=== PATIENT | male | born 1945 | race Caucasian/White ===

== ENCOUNTER 2021-06-19 14:37 | Outpatient (REF) | payer MEDICARE, SELFPAY ==
--- NOTE | ~2021-06-19 | XR_ITS ---
EXAMINATION: XR KNEE, RIGHT CLINICAL INFORMATION: Pain COMPARISON: Previous x-ray September 2018 TECHNIQUE: 4 views of the right knee. FINDINGS: There is an old healed fracture of the distal femoral shaft. No acute fracture or dislocation is seen. There is a 3 component right knee replacement that is new in the interval from September 2018 exam. In satisfactory position. There are small radiopaque soft tissue foreign bodies over the anterior knee similar to September 2018 exam. XR/XR knee RT 4V IMPRESSION: Satisfactory appearance of right knee replacement. Old healed distal femoral shaft fracture.
[2021-06-19 14:56] LABS: MANUAL DIFF FLAG NO
[2021-06-19 16:04] LABS: Basophils Absolute Auto 0.1 X10*3/uL (0.0-0.2); Basophils Percent Auto 0.7 % (0-2); Eosinophils Absolute Auto 0.3 X10*3/uL (0.0-0.4); Eosinophils Percent Auto 4.1 % (0-4); Hematocrit 37.9 % (42.0-52.0); Hemoglobin 12.8 g/dl (14.0-18.0); Imm Gran Abs Auto 0.03 X10*3/uL (0.00-0.03); Imm Gran Pct Auto 0.4 % (0.0-0.4); Lymphocytes Absolute Auto 1.3 X10*3/uL (1.2-4.9); Lymphocytes Percent Auto 17.5 % (20-40); Mean Corpuscular HGB Conc 33.8 g/dl (31.0-36.0); Mean Corpuscular Hemoglobin 31.1 pg (27.0-33.0); Mean Platelet Volume 9.8 fL (9.4-12.4); Monocytes Absolute Auto 0.8 X10*3/uL (0.1-1.2); Monocytes Percent Auto 10.5 % (2-11); Neutrophils Absolute Auto 4.8 x10*3/uL (2.0-8.3); Neutrophils Percent Auto 66.8 % (45-73); Platelet Count 279 X10*3/uL (160-400); Red Blood Count 4.12 X10*6/uL (4.60-5.80); White Blood Count 7.3 X10*3/uL (4.8-10.8)
[2021-06-19 16:40] LABS: Anion Gap 13 (12-20); Blood Urea Nitrogen 11 mg/dL (9-16); Calcium 9.4 mg/dL (8.4-10.2); Carbon Dioxide 25 mmol/L (22-29); Chloride 102 mmol/L (96-108); Cholesterol 188 mg/dL; Estimated Glomerular Filt Rate > 60; Glucose Random 99 mg/dL (60-115); Iron 112 mcg/dL (45-160); Percent Iron Saturation 34 % (15-50); Potassium 4.5 mmol/L (3.3-5.1); Sodium 135 mmol/L (135-145); Total Iron Binding Capacity 331 mcg/dL (228-428); Unsaturated Iron Binding 219 ug/dL
[2021-06-19 16:57] LABS: Prostate Specific Antigen < 0.05 ng/mL (<0.05-4.0)
== END 2021-06-19 14:38 | disposition home or self-care (01) ==
LOC: HO.XRAY 14:37
PROVIDERS: PCP Internal Medicine; Visit Provider Internal Medicine
DX: D64.9 Anemia, unspecified (principal); E78.5 Hyperlipidemia, unspecified; M17.11 Unilateral primary osteoarthritis, right knee; Z12.5 Encounter for screening for malignant neoplasm of prostate; Z96.651 Presence of right artificial knee joint; S72.401S Unspecified fracture of lower end of right femur, sequela
CPT/HCPCS: 36415; 73564; 80048; 82465; 83540; 84153; 85025

== ENCOUNTER 2021-11-08 23:42 | Emergency (ER) | payer MEDICARE, SELFPAY ==
--- NOTE | ~2021-11-08 | CT_ITS ---
EXAMINATION: CT CHEST WITHOUT CONTRAST CLINICAL INFORMATION: Fall. Left chest pain. COMPARISON: None TECHNIQUE: Multidetector volumetric CT imaging of the chest was done. Axial MIP volume rendering provided. Sagittal and coronal reformatted images were obtained. This CT examination was performed using dose optimization techniques as appropriate, variously including the following: *Automated exposure control *Adjustment of mA and/or kV according to patient size (this includes techniques or standardized protocols for targeted exams where dose is matched to indication/reason for exam; i.e. extremities or head) *Use of iterative reconstruction technique DLP: 387 mGy-cm FINDINGS: LUNGS: No pneumothorax. There is a 6 mm mean diameter nodule in the right lower lobe posterolaterally, and a 5 mm mean diameter nodule within the right lower lobe more inferiorly (see ibarra images). There are a few additional pulmonary nodules within the right lower lobe measuring less than 4 mm in mean diameter. Lymph node is present along the minor fissure laterally. The spinal bronchial wall thickening without bronchiectasis. MEDIASTINUM: Moderate cardiomegaly. No pericardial effusion. Great vessels normal caliber. No mediastinal or hilar lymphadenopathy CORONARY ARTERY CALCIFICATION: None visualized on this study. PLEURA: There is no pleural effusion. No pleural mass or thickening. AXILLA: No lymphadenopathy. UPPER ABDOMEN: There are a few hepatic cysts which are benign. No follow-up required. Subcentimeter hyperdense cyst in the right kidney anteriorly. No follow-up required. OSSEOUS STRUCTURES: Minimally displaced acute left lateral 4th and 5th rib fractures. Chronic appearing nonunited left lateral 10th and 11th rib fractures. Severe bilateral glenohumeral arthrosis with [id number] contact. Prominent subcoracoid bursal effusion on the right. CT/CT chest wo IV con IMPRESSION: * Acute mildly displaced left lateral 4th-5th fifth rib fractures. * Incidental pulmonary nodules measuring up to 6 mm within the right lower lobe. Fleischner Society guidelines recommend a follow-up CT chest in 6 months. * Mild diffuse bronchial wall thickening suggestive.
--- NOTE | ~2021-11-08 | CT_ITS ---
EXAMINATION: NONCONTRAST HEAD CT NONCONTRAST CERVICAL SPINE CT INDICATION INFORMATION: Fall. Pain. COMPARISON: 02/08/2019 TECHNIQUE: Separate noncontrast CT examinations of the head and cervical spine were performed. Coronal and sagittal images were created for each examination at the technologist workstation. This CT examination was performed using dose optimization techniques as appropriate, variously including the following: *Automated exposure control *Adjustment of mA and/or kV according to patient size (this includes techniques or standardized protocols for targeted exams where dose is matched to indication/reason for exam; i.e. extremities or head) *Use of iterative reconstruction technique DLP: 1405 mGy-cm FINDINGS: Head: There is no evidence of acute intracranial hemorrhage or territorial infarction. No abnormal mass effect or midline shift is seen. Antonio to white matter differentiation is well preserved. No extra-axial fluid collections are identified. No hydrocephalus. Proportional prominence of the ventricles and sulcal spaces is consistent with moderate volume loss. Patchy periventricular and deep white matter hypoattenuation is consistent with mild small vessel ischemic changes. Chronic lacunar infarct versus dilated perivascular space within the left inferior basal ganglia. Left parietal calvarial subgaleal hematoma and scalp hematoma. Calvarium intact. Scattered polypoid secretions present throughout the ethmoid air cells and bilateral maxillary sinuses. Secretions present within the frontal sinuses. Mastoid air cells are clear. Orbits and globes unremarkable. Cervical spine: There is anatomic alignment of the vertebral bodies and posterior elements. The atlantoaxial and atlantooccipital articulations are intact. Vertebral body heights maintained. Grade 1 anterolisthesis of C7 over T1. Endplate osteophytes and loss of disc space height present throughout the cervical spine along with facet arthropathy. 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 No evidence of acute fracture. No prevertebral soft tissue swelling. Visualized portions of the lung apices are unremarkable. The thyroid gland is unremarkable. CT/CT cervical spine wo IV con IMPRESSION: No acute intracranial pathology No acute cervical spine fracture or traumatic malalignment.
[2021-11-08 23:51] VITALS: BP 125/94; PULSE 104; RESP 17; TEMP 36.9; O2SAT 98; BMI 29.6
--- NOTE | 2021-11-09 00:02 | ED.FALL ---
HPI - Fall General Chief Complaint: Fall Stated Complaint: fall Time Seen by Provider: 11/08/21 23:50 Source: patient and EMS Mode of arrival: EMS Limitations: no limitations History of Present Illness HPI Narrative: Patient lives alone was going downstairs in dark lost control and fell about 10 steps came with his abrasion to the top of the head slight neck pain no other significant injuries patient was ambulatory at home when EMS arrived no rib pain no pelvic pain Related Data Allergies Allergy/AdvReac Type Severity Reaction Status Date / Time No Known Allergies Allergy Verified 11/08/21 23:53 [No Known Allergies*] Review of Systems Review of Systems: Yes all other systems are reviewed and are negative [facility] Past Medical History Medical History Alcohol abuse Arthritis of knee Colon cancer COVID-19 virus infection Diverticular disease GERD (gastroesophageal reflux disease) Hypercholesterolemia Hypertension Knee osteoarthritis Overweight (BMI 25.0-29.9) Prostate cancer Surgical History H/O right hemicolectomy H/O umbilical hernia repair History of surgery History of total left knee replacement History of total right hip arthroplasty History of total right knee replacement Family History Family History Mother No problems noted. Father No problems noted. Social History Social History Advance Directives: No Current occupational status: retired Current occupation: Right Handed Physical Exam Vital Signs: Vital Signs: Last Vital Signs Temp 98.5 F 11/08/21 23:51 Pulse 104 H 11/08/21 23:51 Resp 17 11/08/21 23:51 BP 125/94 H 11/08/21 23:51 Pulse Ox 98 11/08/21 23:51 O2 Del Method 11/08/21 23:51 BMI result Body Mass Index 29.6 Appearance: Alert. Oriented X3. No acute distress. Eyes: PERRLA, No Nystagmus HEENT: Pharynx normal. Oral Mucosa moist superficial abrasion on top of the head Neck: Normal inspection. Neck supple. Slight tenderness C7 and T1 area CVS: Normal heart rate and rhythm. Pulses normal. Respiratory: No respiratory distress. Equal air entry bilateral, no wheezing/rales/rhonchi Abdomen: Soft and nontender. Bowel sounds are present, no mass palpable, no CVA tenderness Skin: Skin warm and dry. Normal skin color. Normal skin turgor. Extremities: No lower extremity edema. No calf tenderness Neuro: Oriented X 3. No motor deficit. No sensory deficit.No cerebellar signs , cranial nerves II-XII intact HEENT: Head images: 1. Superficial abrasion with dried blood MDM - Fall MDM Narrative Medical decision making narrative: 130 am Patient status post mechanical fall CT head C-spine negative patient ambulatory in the ER Discharge Plan Discharge Clinical Impression: Fall (on) (from) other stairs and steps, initial encounter Patient Disposition: Home, Self-Care Instructions: Fall Prevention for Older Adults (ED) Additional Instructions: Care and cautions advise Follow with PCP as needed
[2021-11-09 01:44] VITALS: BP 156/76; PULSE 87; RESP 16; TEMP 36.9
--- NOTE | 2021-11-09 01:49 | PC.NURSE ---
Patient sustained a fall at home, which is reason for ED visit. This Tech took patient for a trial walk as requested by RN. Patient ambulated well with a one/stand-by assist.
--- NOTE | 2021-11-09 01:54 | PC.NURSE ---
Rachid called at [phone] for a bls transfer home.RUBIN [id number] aware
--- NOTE | 2021-11-09 01:56 | PC.NURSE ---
PATIENT HEAD ABRASION WAS CLEAN AND BACITRACIN APPLY ,PER MD REQUEST .
--- NOTE | 2021-11-09 02:12 | PC.NURSE ---
PATIENT DRANK 240 ML WATER BEFORE SLEEPING .
[2021-11-09 04:00] VITALS: BP 156/74; PULSE 88
[2021-11-09] MEDS: Acetaminophen 325 MG TABLET 650 MG PO ×2 (04:45→17:06)
--- NOTE | 2021-11-09 05:10 | PC.NURSE ---
Patient moaning and grimacing when rolling over in bed. States he has pain all over his whole body. MD made aware and chest CT ordered for ?rib fx. Patient ambulates with a shuffling gait but is slow and steady. he states he lives alone with no one to care for him.
[2021-11-09 07:19] VITALS: BP 168/76; PULSE 86; TEMP 36.4; O2SAT 96
[2021-11-09] MEDS: Ketorolac Tromethamine 15 MG/ML VIAL IM (07:36)
[2021-11-09] MEDS: Lidocaine 4 % Patch ADH..PATCH 1 PATCH TRANSDERMA (07:38)
[2021-11-09] MEDS: Acetaminophen 325 MG TABLET 975 MG PO (07:38)
[2021-11-09 07:45] LABS: COVID-19 Test Negative (Negative); IDNOW Serial# 55D5AD1C
--- NOTE | 2021-11-09 08:36 | PC.NURSE ---
ambulance cancelled for pt, plan has changed to now review possibility for short term placement. Pt has unsteady gait, post fall, has no one at home to care for or check in on him, concern for safety. Pain medications administered per APR.
--- NOTE | 2021-11-09 08:42 | PHA.MEDREC ---
Pharmacy Consult ? Medication Reconciliation Pharmacy has completed the medication reconciliation.
[2021-11-09 08:49] VITALS: BP 127/94; PULSE 91; RESP 14; O2SAT 99
--- NOTE | 2021-11-09 09:48 | PC.NURSE ---
Pt up and wandering around department, this nurse and LOLA Ignacio assisted pt back to his room. Pt assisted into a recliner for more comfort and was provided with juice and applesauce. Pt called his nephew Pic to make him aware that he was in the hospital. Pt is now resting comfortably in his recliner watching TV in no apparent distress.
[2021-11-09 11:16] VITALS: BP 148/94; PULSE 74; RESP 15; O2SAT 97
[2021-11-09] MEDS: Docusate Sodium 100 MG CAPSULE PO (12:19)
[2021-11-09] MEDS: polyethylene glycoL 3350 17 GM POWD.PACK PO (12:19)
--- NOTE | 2021-11-09 13:17 | PC.NURSE ---
pt requesting stool softeners, BHUPINDER Boothe was made aware and she ordered medications. Stool softeners administered per APR. Pt has no complaints at this time and is resting comfortably in his recliner at this time.
[2021-11-09] MEDS: chlordiazePOXIDE HCl 5 MG CAPSULE PO (17:06)
--- NOTE | 2021-11-09 17:14 | ECG_ITS ---
Test Reason : FALL Blood Pressure : / mmHG Vent. Rate : 083 BPM Atrial Rate : 000 BPM P-R Int : 000 ms QRS Dur : 090 ms QT Int : 362 ms P-R-T Axes : 000 065 051 degrees QTc Int : 425 ms Poor data quality, interpretation may be adversely affected Normal sinus rhythm Septal infarct (cited on or before 08-FEB-2019) Abnormal ECG When compared with ECG of 24-AUG-2019 14:13, Premature ventricular complexes are no longer Present Referred By: Dennis Fox Electronically Signed By:HORTENSIA CANTU
--- NOTE | 2021-11-09 17:26 | PC.NURSE ---
pt has been frequently ambulatory w stand by assist. ambulates w slow shuffled gait, pt understands physical limitations and uses call marinelli appropriately. given medication for pain. given librium d/t pt drinking etoh daily. pt is not exhibiting any signs of etoh withdrawal at this time.
[2021-11-09 17:30] LABS: MANUAL DIFF FLAG NO
[2021-11-09 17:35] LABS: Basophils Percent Auto 0.5 % (0-2); Eosinophils Absolute Auto 0.3 X10*3/uL (0.0-0.4); Hemoglobin 11.8 g/dl (14.0-18.0); Imm Gran Abs Auto 0.02 X10*3/uL (0.00-0.03); Imm Gran Pct Auto 0.3 % (0.0-0.4); Lymphocytes Absolute Auto 1.1 X10*3/uL (1.2-4.9); Lymphocytes Percent Auto 15.4 % (20-40); Mean Corpuscular HGB Conc 35.8 g/dl (31.0-36.0); Mean Corpuscular Hemoglobin 32.2 pg (27.0-33.0); Mean Corpuscular Volume 89.9 fL (80.0-98.0); Mean Platelet Volume 9.3 fL (9.4-12.4); Monocytes Absolute Auto 0.7 X10*3/uL (0.1-1.2); Monocytes Percent Auto 9.7 % (2-11); Neutrophils Absolute Auto 5.2 x10*3/uL (2.0-8.3); Neutrophils Percent Auto 70.1 % (45-73); Platelet Count 247 X10*3/uL (160-400); Red Blood Count 3.67 X10*6/uL (4.60-5.80); Red Cell Distribution Width 12.2 % (11.0-16.0); White Blood Count 7.3 X10*3/uL (4.8-10.8)
[2021-11-09 17:44] LABS: INTERNATIONAL NORM RATIO 1.3 (0.9-1.1); Prothrombin Time 14.5 SEC (10.0-13.1)
[2021-11-09 17:52] LABS: Alanine Aminotransferase 14 U/L (0-40); Albumin Level 3.9 g/dL (3.5-5.0); Alkaline Phosphatase 103 U/L (39-117); Anion Gap 16 (12-20); Aspartate Amino Transferase 23 U/L (5-37); Bilirubin Total 1.8 mg/dL (0.0-1.0); Blood Urea Nitrogen 16 mg/dL (9-16); Calcium 8.7 mg/dL (8.4-10.2); Carbon Dioxide 20 mmol/L (22-29); Chloride 94 mmol/L (96-108); Creatinine Clr Calc Pharmacy 106.1; Estimated Glomerular Filt Rate > 60; Glucose Random 114 mg/dL (60-115); Magnesium 2.1 mg/dL (1.6-2.6); Potassium 4.4 mmol/L (3.3-5.1); Sodium 126 mmol/L (135-145); Total Protein 6.3 g/dL (6.5-8.0)
[2021-11-09 17:55] LABS: Troponin-I High Sensitivity 5.9 ng/L (<3.5-35.0)
[2021-11-10] VITALS: BP 150/63; PULSE 86; RESP 16; TEMP 36.8; O2SAT 95
[2021-11-10] MEDS: Acetaminophen 325 MG TABLET 650 MG PO (01:57)
--- NOTE | 2021-11-10 06:21 | PC.NURSE ---
Patient is alert and oriented x3, forgetful at times. VSS. Patient report pain in left ribs with movement 4/10 at present. Patient requesting medication for pain. Dr. English notified MD will put order for pain medication. Patient assisted to the restroom. Patient ambulates with stand by assistance of 1 person. Gait is slow, unsteady at time. This RN offered patient to use a urinal instead of walking to the restroom to minimize pain d/t movement during ambulation. Patient refused to use a urinal.
[2021-11-10] MEDS: Ketorolac Tromethamine 15 MG/ML VIAL IM (06:29)
[2021-11-10 07:01] VITALS: BP 150/79; PULSE 80; RESP 16; TEMP 36.7; O2SAT 97
[2021-11-10 07:16] VITALS: BP 161/83; PULSE 83; RESP 18; TEMP 36.6; O2SAT 96
--- NOTE | 2021-11-10 10:06 | MHC.CM.ED ---
Addendum entered by Heather Bolton 11/10/21 13:15: [facility] will not be able to offer a bed because patient has not received a booster. [facility] is able to offer a bed. Patient requesting referral to [facility]. Referral made via [employer]. Original Note: Received case management consult overnight. Patient came to the ER due to a fall. Work up essentially negative. Physical therapy eval completed. Short term rehab is recommended. Met with patient in regards to discharge planing. Patient lives alone, ambulates independently and had no services prior to coming to the hospital. PCP verified. HCP verified to be on file. Patient received 2 Pfizer vaccines. No boosters. Patient has been to [facility] in the past. Requesting referral to [facility]. Referral made via [employer]. Continue to monitor for d/c needs.
[2021-11-10 11:05] VITALS: BP 146/68; PULSE 83; RESP 18; TEMP 36.7; O2SAT 94
[2021-11-10 11:24] LABS: Anion Gap 14 (12-20); Blood Urea Nitrogen 12 mg/dL (9-16); Calcium 8.6 mg/dL (8.4-10.2); Carbon Dioxide 23 mmol/L (22-29); Chloride 99 mmol/L (96-108); Creatinine Clr Calc Pharmacy 102.8; Estimated Glomerular Filt Rate > 60; Glucose Random 119 mg/dL (60-115); Potassium 4.5 mmol/L (3.3-5.1); Sodium 131 mmol/L (135-145)
--- NOTE | 2021-11-10 14:39 | MHC.CM.ED ---
[facility] is able to offer patient a bed as long as provider documents patient going under Medicare waiver. Reyna ROE aware and documented as such. Patient will leave via [facility] at 4pm. Patient, Camille DAVILA and Reyna ROE aware. Continue to monitor for d/c needs.
[2021-11-10 15:53] VITALS: BP 135/58; PULSE 92; RESP 16; TEMP 37.1; O2SAT 96
== END 2021-11-10 16:50 ==
PROVIDERS: Physician Assistant; Student in an Organized Health Care Education/Training Program; Emergency Provider Internal Medicine; PCP Internal Medicine
DX: S22.49XA Multiple fractures of ribs, unspecified side, initial encounter for closed fracture (principal); S09.90XA Unspecified injury of head, initial encounter; R51.9 Headache, unspecified; R26.2 Difficulty in walking, not elsewhere classified; M54.2 Cervicalgia; M54.6 Pain in thoracic spine; W10.9XXA Fall (on) (from) unspecified stairs and steps, initial encounter; Y93.9 Activity, unspecified; Y92.9 Unspecified place or not applicable; Y99.9 Unspecified external cause status; Z20.822 Contact with and (suspected) exposure to COVID-19; Z79.899 Other long term (current) drug therapy
CPT/HCPCS: 36415; 70450; 71250; 72125; 80048; 80053; 83735; 84484; 85025; 85610; 87635; 93005; 96372; 97162; 99285; J1885

== ENCOUNTER 2022-02-27 13:43 | Emergency (ER) | payer MEDICARE, SELFPAY ==
--- NOTE | ~2022-02-27 | XR_ITS ---
EXAMINATION: XR ABDOMEN KUB CLINICAL INDICATION: Constipation COMPARISON: None TECHNIQUE: AP view of the abdomen. FINDINGS: Bowel gas pattern is normal. No evidence of excessive stool in the colon or rectum. No overt findings of constipation. A metallic clip is present in the right upper quadrant of the abdomen. Multiple metallic tacks from mesh placement of the right abdominal wall. Mild dextroscoliosis of the degenerated lumbar spine. [id number] osteoarthritis of left hip. The visualized noncemented components of the right total hip arthroplasty are in normal position. No hardware loosening. XR/XR KUB IMPRESSION: No acute radiographic abnormalities in the abdomen. No evidence of bowel obstruction.
[2022-02-27 13:52] VITALS: BP 156/75; PULSE 83; RESP 22; TEMP 36.4; O2SAT 97; BMI 27.9
--- NOTE | 2022-02-27 13:53 | ED_ITS ---
HPI - Abdominal Pain General Chief Complaint: General Medical <Nohemy Rodrigues CNP - Last Filed: 02/27/22 15:17> Stated Complaint: constipation x 8 days <Nohemy Rodrigues CNP - Last Filed: 02/27/22 15:17> Time Seen by Provider: 02/27/22 15:57 <Nohemy Rodrigues CNP - Last Filed: 02/27/22 15:17> Source: patient <BHUPINDER Matias - Last Filed: 02/27/22 16:49> Mode of arrival: ambulatory <BHUPINDER Matias - Last Filed: 02/27/22 16:49> Limitations: no limitations <BHUPINDER Matias - Last Filed: 02/27/22 16:49> History of Present Illness HPI narrative: 76-year-old male with a history of HTN, GERD, HLD, alcohol abuse, colon cancer status post resection, history of constipation who presents to the ER for evaluation of constipation for the last 8 days. He reports he last had a bowel movement 8 days ago and was rock hard. He took a pink drink laxative yesterday with no affect. He states he has been suffering from constipation for several months. He reports drinking plenty of water and plenty of beer. He denies any nausea, vomiting or abdominal pain. <BHUPINDER Matias - Last Filed: 02/27/22 16:49> MD elicited complaint: abdominal pain <BHUPINDER Matias - Last Filed: 02/27/22 16:49> Pertinent past history: constipation <BHUPINDER Matias - Last Filed: 02/27/22 16:49> Onset (ago): day(s) (8) <BHUPINDER Matias - Last Filed: 02/27/22 16:49> Location: none <BHUPINDER Matias Last Filed: 02/27/22 16:49> Radiation: none <BHUPINDER Matias Last Filed: 02/27/22 16:49> Migration to: no migration <BHUPINDER Matias Last Filed: 02/27/22 16:49> Exacerbating factors: nothing <BHUPINDER Matias - Last Filed: 02/27/22 16:49> Context: history of similar episodes <BHUPINDER Matias - Last Filed: 02/27/22 16:49> Associated symptoms: denies other symptoms <BHUPINDER Matias - Last Filed: 02/27/22 16:49> Related Data Home Medications: Previous Rx's Medication Instructions Recorded bisacodyl 10 mg rectal suppository 10 mg IN DAILY PRN constipation 02/27/22 (Dulcolax (bisacodyl)) #12 ea polyethylene glycol 3350 17 17 g PO DAILY #119 grams 02/27/22 gram/dose oral powder (Miralax) <Nohemy Rodrigues CNP - Last Filed: 02/27/22 15:17> Allergies/Adverse Reactions: Allergies Allergy/AdvReac Type Severity Reaction Status Date / Time No Known Allergies Allergy Verified 11/08/21 23:53 [No Known Allergies*] <Nohemy Rodrigues CNP - Last Filed: 02/27/22 15:17> Review of Systems Review of Systems Yes all other systems are reviewed and are negative <BHUPINDER Matias - Last Filed: 02/27/22 16:49> PMF Past Medical History Medical History: Medical History Alcohol abuse Arthritis of knee Colon cancer COVID-19 virus infection Diverticular disease GERD (gastroesophageal reflux disease) Hypercholesterolemia Hypertension Knee osteoarthritis Overweight (BMI 25.0-29.9) Prostate cancer <Nohemy Rodrigues CNP - Last Filed: 02/27/22 15:17> Surgical History: Surgical History H/O right hemicolectomy H/O umbilical hernia repair History of surgery History of total left knee replacement History of total right hip arthroplasty History of total right knee replacement <Nohemy Rodrigues CNP - Last Filed: 02/27/22 15:17> Family History Family History: Family History Mother No problems noted. Father No problems noted. <Nohemy Rodrigues CNP - Last Filed: 02/27/22 15:17> Social History Social History: Social History Alcohol intake: current Alcohol intake frequency: does not drink Patient Tobacco Use Status: Tobacco use Unknown Smoked in Last 30 Days: No Advance Directives: No Current occupational status: retired Current occupation: Right Handed <Nohemy Rodrigues CNP - Last Filed: 02/27/22 15:17> Physical Exam ED Vital Signs: Vital Signs - 24 hr 02/27/22 13:52 02/27/22 14:13 Temperature 97.5 F 98.1 F Pulse Rate 83 78 Respiratory Rate 22 H 18 Blood Pressure 156/75 H 151/63 H Pulse Oximetry 97 96 Oxygen Delivery Method Room Air Room Air BMI result Body Mass Index 27.9 <Nohemy Rodrigues [employer]ICE - Last Filed: 02/27/22 15:17> Vital Signs - 24 hr 02/27/22 13:52 02/27/22 14:13 Temperature 97.5 F 98.1 F Pulse Rate 83 78 Respiratory Rate 22 H 18 Blood Pressure 156/75 H 151/63 H Pulse Oximetry 97 96 Oxygen Delivery Method Room Air Room Air BMI result Body Mass Index 27.9 <BHUPINDER Matias - Last Filed: 02/27/22 16:49> Vital Signs - 24 hr 02/27/22 13:52 02/27/22 14:13 Temperature 97.5 F 98.1 F Pulse Rate 83 78 Respiratory Rate 22 H 18 Blood Pressure 156/75 H 151/63 H Pulse Oximetry 97 96 Oxygen Delivery Method Room Air Room Air BMI result Body Mass Index 27.9 <Sravan Batres MD - Last Filed: 03/09/22 18:50> Appearance: Alert. Oriented X3. No acute distress. Eyes: Pupils equal, round and reactive to light. ENT: Pharynx normal. Neck: Normal inspection. Neck supple. CVS: Normal heart rate and rhythm. Pulses normal. Respiratory: No respiratory distress. Breath sounds normal. Abdomen: Soft and nontender. +BS x4. MARIO - normal rectal tone, scant amount of hard brown stool at the anus, no stool in the rectal vault. Skin: Skin warm and dry. Normal skin color. Normal skin turgor. No rashes. Extremities: No lower extremity edema. Neuro: Oriented X 3. No motor deficit. No sensory deficit. Ambulates with a limp <BHUPINDER Matias - Last Filed: 02/27/22 16:49> Course Course Course Narrative: This is an RME: Additional HPI, ROS, PE not included below will be d eferred to primary provider. Patient is a 76 year old male who presents to the ED for evaluation of constipation. Hard movement 8 days ago. Constipation issues over past 8 months, states he is drinking a cream its pink , denies pepto- bismol, unable to state which medication but this is not helping. ABD soft, non- tender. Denies ABD pain, nausea, vomiting, fevers, or chills. Denies hematochezia or melena. Plan: KUB XR <Nohemy Rodrigues CNP - Last Filed: 02/27/22 15:17> Reevaluation(s) Reevaluation #1: KUB normal. MARIO without stool impaction, no stool in the rectal vault. Will give enema. <BHUPINDER Matias - Last Filed: 02/27/22 16:49> Reevaluation #2: Patient has had a very large bowel movement after enema administration. He is stable for discharge home with gentle laxatives and GI follow-up. Patient agrees with plan. <BHUPINDER Matias - Last Filed: 02/27/22 16:49> Medical Decision Making Differential Diagnosis Differential Diagnoses: The differential diagnosis associated with the presentation includes <BHUPINDER Matias - Last Filed: 02/27/22 16:49> Slow transit constipation, dehydration, bowel obstruction, stercoral colitis, diverticulitis <BHUPINDER Matias - Last Filed: 02/27/22 16:49> Independent Interpretation I performed an independent interpretation of an: Plain X-Ray <BHUPINDER Matias - Last Filed: 02/27/22 16:49> Interpretation: normal KUB, no obstruction <BHUPINDER Matias Last Filed: 02/27/22 16:49> Radiology Impression Discussion of test interpretation with radiology: I have reviewed the radiologist's reading. <BHUPINDER Matias - Last Filed: 02/27/22 16:49> Radiologist Impression: No acute radiographic abnormalities in the abdomen. No evidence of bowel obstruction. <BHUPINDER Matias - Last Filed: 02/27/22 16:49> External Record Review External record reviewed: Office record, Outpatient record, Prior outpatient labs and Prior outpatient radiology <BHUPINDER Matias - Last Filed: 02/27/22 16:49> Tests considered The following testing was considered but not selected: CT scan considererd but not required. large BM after enema <BHUPINDER Matias - Last Filed: 02/27/22 16:49> Prescription Management I considered prescription management with: Other <BHUPINDER Matias - Last Filed: 02/27/22 16:49> laxatives <BHUPINDER Matias - Last Filed: 02/27/22 16:49> Attestation Attending Attestation: Her review the documentation in chart for this patient and was seen primarily by the nurse practitioner/PA. I agree with the assessment and plan. <Sravan Batres MD - Last Filed: 03/09/22 18:50> Medications Administered Discontinued Medications Generic Name Dose Route Start Last Admin Trade Name Freq PRN Reason Stop Dose Admin Lactulose 20 gm 02/27/22 16:16 02/27/22 16:36 Lactulose 20 Gm/30 Ml Solution PO 02/27/22 16:17 20 gm ONCE ONE Administration Magnesium Hydroxide 30 ml 02/27/22 16:16 02/27/22 16:36 Milk Of Magnesia 30 Ml Oral.Susp PO 02/27/22 16:17 30 ml ONCE ONE Administration Senna 15 ml 02/27/22 16:16 02/27/22 16:36 Senna [place] Extract Oral Syrup 15 Ml Syrup PO 02/27/22 16:17 15 ml ONCE ONE Administration Sodium Biphosphate/Sodium Phosphate 133 ml 02/27/22 16:00 02/27/22 16:10 Sodium Phosphate,Schuyler-Dibasic 133 Ml Enema IN 02/27/22 16:01 133 ml ONCE ONE Administration <Nohemy Rodrigues CNP - Last Filed: 02/27/22 15:17> Medications Administered Discontinued Medications Generic Name Dose Route Start Last Admin Trade Name Freq PRN Reason Stop Dose Admin Lactulose 20 gm 02/27/22 16:16 02/27/22 16:36 Lactulose 20 Gm/30 Ml Solution PO 02/27/22 16:17 20 gm ONCE ONE Administration Magnesium Hydroxide 30 ml 02/27/22 16:16 02/27/22 16:36 Milk Of Magnesia 30 Ml Oral.Susp PO 02/27/22 16:17 30 ml ONCE ONE Administration Senna 15 ml 02/27/22 16:16 02/27/22 16:36 Senna [place] Extract Oral Syrup 15 Ml Syrup PO 02/27/22 16:17 15 ml ONCE ONE Administration Sodium Biphosphate/Sodium Phosphate 133 ml 02/27/22 16:00 02/27/22 16:10 Sodium Phosphate,Schuyler-Dibasic 133 Ml Enema IN 02/27/22 16:01 133 ml ONCE ONE Administration <BHUPINDER Matias - Last Filed: 02/27/22 16:49> Medications Administered Discontinued Medications Generic Name Dose Route Start Last Admin Trade Name Freq PRN Reason Stop Dose Admin Lactulose 20 gm 02/27/22 16:16 02/27/22 16:36 Lactulose 20 Gm/30 Ml Solution PO 02/27/22 16:17 20 gm ONCE ONE Administration Magnesium Hydroxide 30 ml 02/27/22 16:16 02/27/22 16:36 Milk Of Magnesia 30 Ml Oral.Susp PO 02/27/22 16:17 30 ml ONCE ONE Administration Senna 15 ml 02/27/22 16:16 02/27/22 16:36 Senna [place] Extract Oral Syrup 15 Ml Syrup PO 02/27/22 16:17 15 ml ONCE ONE Administration Sodium Biphosphate/Sodium Phosphate 133 ml 02/27/22 16:00 02/27/22 16:10 Sodium Phosphate,Schuyler-Dibasic 133 Ml Enema IN 02/27/22 16:01 133 ml ONCE ONE Administration <Sravan Batres MD - Last Filed: 03/09/22 18:50> Critical Care Time Critical Care Time Critical Care Time: No <BHUPINDER Matias - Last Filed: 02/27/22 16:49> Discharge Plan Discharge Clinical Impression: Constipation <Nohemy Rodrigues CNP - Last Filed: 02/27/22 15:17> Patient Disposition: Home, Self-Care <Nohemy Rodrigues CNP - Last Filed: 02/27/22 15:17> Instructions: Constipation (ED) <Nohemy Rodrigues CNP - Last Filed: 02/27/22 15:17> Additional Instructions: Your x-ray today was normal. Recommend starting the prescribed laxatives as directed. You can also take [id number] laxatives as needed for constipation. Recommend increasing her fiber intake, recommend [id number] Metamucil. Recommend following up with GI for further evaluation of your constipation. If you develop new or worsening symptoms call 911 or come back to the ER for further evaluation. <Nohemy Rodrigues CNP - Last Filed: 02/27/22 15:17> Prescriptions: New polyethylene glycol 3350 [Miralax] 17 gram/dose powder 17 g PO DAILY Qty: 119 0RF bisacodyl [Dulcolax (bisacodyl)] 10 mg suppository 10 mg IN DAILY PRN (Reason: constipation) Qty: 12 0RF <Nohemy Rodrigues CNP - Last Filed: 02/27/22 15:17> Referrals: [facility] [place]Provider Group] (constipation) <Nohemy Rodrigues CNP - Last Filed: 02/27/22 15:17> Interventions: ED Discharge Assessment Last Done: 02/27/22 16:58 <Nohemy Rodrigues CNP - Last Filed: 02/27/22 15:17> Discharge Date/Time: 02/27/22 16:59 <Nohemy Rodrigues CNP - Last Filed: 02/27/22 15:17>
[2022-02-27 14:13] VITALS: BP 151/63; PULSE 78; RESP 18; TEMP 36.7; O2SAT 96
--- NOTE | 2022-02-27 14:16 | PC.NURSE ---
76 y/o M hx of constipation x8mo pw abdominal pain. last BM was 8days ago. denies N/V at this time. VSS. awaiting MD halls
[2022-02-27] MEDS: Sodium Phosphate,Mono-Dibasic 133 ML ENEMA PR (16:10)
[2022-02-27] MEDS: Milk of Magnesia 30 ML ORAL.SUSP PO (16:36)
[2022-02-27] MEDS: Lactulose 20 GM/30 ML SOLUTION PO (16:36)
== END 2022-02-27 16:59 | disposition home or self-care (01) ==
PROVIDERS: Emergency Provider Emergency Medicine; PCP Internal Medicine
DX: K59.00 Constipation, unspecified (principal)
CPT/HCPCS: 74018; 99284

== ENCOUNTER 2022-05-05 10:41 | Emergency (ER) | payer MEDICARE, SELFPAY ==
--- NOTE | ~2022-05-05 | XR_ITS ---
EXAMINATION: XR KNEE, LEFT CLINICAL INFORMATION: Laceration status post fall. COMPARISON: None available. TECHNIQUE: Four views of the left knee. FINDINGS: The patient is status post left knee arthroplasty showing good anatomic alignment and no evidence for hardware malfunction. There is no acute fracture. Trace suprapatellar joint effusion. The soft tissues are unremarkable. XR/XR knee LT 4V IMPRESSION: No hardware abnormality. No acute fracture. Trace suprapatellar joint effusion.
--- NOTE | ~2022-05-05 | XR_ITS ---
EXAMINATION: XR KNEE, RIGHT CLINICAL INFORMATION: Right knee pain status post fall. COMPARISON: None available. TECHNIQUE: Four views of the right knee. FINDINGS: The patient is status post right knee arthroplasty showing good anatomic alignment and no evidence for hardware malfunction. Nonacute deformity in the distal right femur. Possible small suprapatellar joint effusion. Mild prepatellar soft tissue swelling. XR/XR knee RT 4V IMPRESSION: 1. No acute fracture. No hardware abnormality. 2. Mild soft tissue swelling and possible small suprapatellar joint effusion. Correlate with physical exam.
--- NOTE | ~2022-05-05 | CT_ITS ---
EXAMINATION: CT CHEST WITH IV CONTRAST CT ABDOMEN AND PELVIS WITH IV CONTRAST CLINICAL INFORMATION: Trauma. COMPARISON: Chest CT from 11/09/2021. Abdomen/pelvis CT from 11/09/2013. TECHNIQUE: Multidetector CT imaging examination of the chest, abdomen and pelvis was performed with intravenous administration of 85 mL Omnipaque 350. Axial images are displayed at 0.6 mm and 5 mm slice thickness. Coronal and sagittal reformatted images were generated at the technologist's workstation and submitted for review. This CT examination was performed using dose optimization techniques as appropriate, variously including the following: *Automated exposure control *Adjustment of mA and/or kV according to patient size (this includes techniques or standardized protocols for targeted exams where dose is matched to indication/reason for exam; i.e. extremities or head) *Use of iterative reconstruction technique DLP: 909 mGy-cm FINDINGS: CHEST - LUNGS AND PLEURA: There is respiratory motion on the images of the chest. Mild atelectasis in dependent aspect of each lower lobe. No pulmonary consolidation or pneumothorax. No pleural effusion. Previously observed small noncalcified pulmonary nodules remain unchanged compared to 11/09/2021. MEDIASTINUM/LOWER NECK: The heart size is normal. No pericardial effusion. Pulmonary arteries are not well evaluated due to the phase of contrast administration. Atherosclerotic calcification of the thoracic aorta. No acute aortic injury. No aneurysm or dissection. No mediastinal hematoma. The esophagus and thyroid gland are unremarkable. No pneumomediastinum. LYMPHATICS: No pathologic sized axillary, hilar or mediastinal lymph nodes. CHEST WALL/BONES OF THORAX: No chest wall hematoma. Chronic severe osteoarthritis with glenohumeral joint effusions. Several osteochondral bodies of the left glenohumeral joint. Osteoarthritis of sternoclavicular joints. A few old healed left rib fractures are noted. There is partial lack of osseous union of the old left lateral ninth rib fracture. Partial osseous union of the left lateral 10th rib fracture. No acute findings within the visualized degenerated lower cervical and thoracic spine. Hemangioma of the T7 vertebral body. ABDOMEN AND PELVIS - HEPATOBILIARY: Multiple benign cysts of the liver. A 4.3 cm cyst in the right lobe has a thin septation. There is a cluster of cysts (or cyst with thin septations) of the lateral aspect of segment 2. No suspicious liver lesion. Gallbladder is unremarkable. No dilated bile ducts. PANCREAS: No edema, mass or pancreatic ductal dilatation. SPLEEN: Normal. ADRENAL GLANDS: Normal. KIDNEYS AND URETERS: Kidneys are normal in size and attenuation. No suspicious renal lesion. No nephrolithiasis, hydronephrosis or perinephric fluid collection. BOWEL AND PERITONEUM: No dilated bowel loops. No focal bowel wall thickening, mesenteric fat stranding or free fluid. No hemoperitoneum or pneumoperitoneum. ABDOMINAL WALL: There is a chronic finding of mesh within the right abdominal wall helping to stabilize the chronic defect within the right rectus abdominis muscle. There is chronic protrusion of fat and bowel deep to the mesh but not through the mesh. There is chronic mild herniation of fat into the left inguinal canal. VESSELS: Atherosclerotic calcification of the abdominal aorta without aneurysm or dissection. No retroperitoneal hematoma. The inferior vena cava is normal. LYMPH NODES: No pathologic sized lymph nodes in the abdomen or pelvis. No inguinal lymphadenopathy. BLADDER AND PELVIC VISCERA: There appears to be chronic minimal urinary bladder wall thickening without bladder mass or stone. There are fiducial markers of the prostate gland. No pelvic mass or pelvic free fluid. OTHER MUSCULOSKELETAL: Streak artifact is produced by components of the right total hip arthroplasty. Pelvic bones and proximal femurs are intact. Chronic dextroscoliosis of degenerated lumbar spine. Mild multilevel vertebral subluxations of the degenerated lumbar spine. Moderate osteoarthritis of the left hip. CT/CT abdomen pelvis w IV con IMPRESSION: * No evidence of acute traumatic pathology in the chest, abdomen or pelvis. * The pulmonary nodules are stable compared to 11/09/2021. Consider chest CT follow up in another 12 to 18 months, if deemed appropriate, based on Fleischner Society guidelines. * Several old left rib fractures are identified. No evidence of an acute displaced rib fracture or chest wall hematoma. * No liver or splenic laceration. No hemoperitoneum or pneumoperitoneum.
--- NOTE | ~2022-05-05 | CT_ITS ---
EXAMINATION: CT CERVICAL SPINE WITHOUT CONTRAST CLINICAL INFORMATION: Trauma. COMPARISON: None available. TECHNIQUE: Multiple axial images of the cervical spine were obtained without the administration of intravenous contrast. Coronal and sagittal reformatted images were obtained. This CT examination was performed using dose optimization techniques as appropriate, variously including the following: *Automated exposure control *Adjustment of mA and/or kV according to patient size (this includes techniques or standardized protocols for targeted exams where dose is matched to indication/reason for exam; i.e. extremities or head) *Use of iterative reconstruction technique DLP: 519.38 mGy-cm FINDINGS: There is straightening of the normal cervical lordosis with normal spinal alignment. Moderate to severe multilevel degenerative changes are seen most pronounced at C3-C4, C5-C6 and C6-C7. Mild grade 1 anterolisthesis is seen at C7-T1. Multilevel degenerative changes are seen in the facet joints bilaterally. The spinous processes are intact. The cervical soft tissues are unremarkable. Moderate to severe atherosclerosis is seen in the carotid bulbs bilaterally, left greater than right. There is no lymphadenopathy. The thyroid gland is unremarkable. Minimal biapical scarring is noted. CT/CT cervical spine wo IV con IMPRESSION: 1. Straightening of the normal cervical lordosis may be secondary to positioning and/or muscle spasm. 2. Multilevel degenerative changes without acute abnormality.
--- NOTE | ~2022-05-05 | XR_ITS ---
EXAMINATION: XR TIBIA AND FIBULA, LEFT CLINICAL INFORMATION: Left leg pain status post fall COMPARISON: None available. TECHNIQUE: AP and lateral views of the left tibia and fibula were obtained. FINDINGS: The bones and soft tissues are normal. No fracture. No osseous lesions. Left knee hardware appears intact. XR/XR tibia fibula LT 2V IMPRESSION: No acute fracture or hardware abnormality.
--- NOTE | ~2022-05-05 | CT_ITS ---
EXAMINATION: CT HEAD AND FACIAL BONES WITHOUT CONTRAST CLINICAL INFORMATION: Head and facial pain status post trauma. COMPARISON: 11/09/[address] scan. TECHNIQUE: Multiple axial images of the head and facial bones were obtained without the administration of intravenous contrast. Coronal and sagittal reformatted images were obtained. Coronal and sagittal reformatted images were obtained. This CT examination was performed using dose optimization techniques as appropriate, variously including the following: *Automated exposure control *Adjustment of mA and/or kV according to patient size (this includes techniques or standardized protocols for targeted exams where dose is matched to indication/reason for exam; i.e. extremities or head) *Use of iterative reconstruction technique DLP: 499.62, 690.61 mGy-cm FINDINGS: Head: There is mild to moderate widening of the cortical sulci and associated ventriculomegaly. The lateral ventricles are symmetrical. The third and fourth ventricles are in their normal midline position. The basilar and prepontine cisterns are unremarkable. There is no acute intra or extracerebral abnormality. There is no mass effect or midline shift. Sections through the bony calvarium are unremarkable. Facial bones: Moderate soft tissue swelling overlies the right maxillary bone and orbit. Minimally displaced fractures of the superior, inferolateral and medial staples of the right maxillary sinus are seen. Mild to moderate mucosal thickening and a small air-fluid level is seen in the right maxillary sinus. The right orbit and orbital contents are unremarkable. 2 ovoid follicles are seen in the right nasal cavity. Mild to moderate mucosal thickening is seen in the left maxillary sinus. Small air-fluid level in the sphenoid sinus moderate to severe mucosal thickening in the ethmoid sinuses, right greater than left. The frontal sinuses are clear. The ostiomeatal complexes are occluded by mucosal thickening. The mandible is intact. Mild temporomandibular degenerative joint changes are seen. The pterygoid plates are intact. CT/CT facial bones wo IV con IMPRESSION: 1. No acute intracranial pathology. 2. Moderate soft tissue swelling overlying the right maxillary sinus with minimally displaced fractures detailed above. 3. Paranasal sinus and nasal canal inflammatory changes most pronounced in the ethmoid sinuses. Right maxillary sinus changes are likely secondary to inflammatory changes as well, but a component may be secondary to trauma.
[2022-05-05 10:55] VITALS: BP 158/77; PULSE 96; RESP 18; TEMP 36.7; O2SAT 97; BMI 25.9
--- NOTE | 2022-05-05 11:15 | ED_ITS ---
HPI - Fall General Chief Complaint: Fall Stated Complaint: Fall in parking lot/Facial inj/L leg inj Time Seen by Provider: 05/05/22 11:06 Source: patient Mode of arrival: wheelchair Limitations: no limitations History of Present Illness HPI Narrative: 76 yo male with history of HTN, GERD, HLD here with complaints of fall. Per patient he tripped over a rock today hitting his head and chest wall, landing on the knees. Denies LOC. Denies AC therapy use. complaint: fall Related Data Previous Rx's Medication Instructions Recorded bisacodyl 10 mg rectal suppository 10 mg WA DAILY PRN constipation 02/27/22 (Dulcolax (bisacodyl)) #12 ea polyethylene glycol 3350 17 17 g PO DAILY #119 grams 02/27/22 gram/dose oral powder (Miralax) amoxicillin 875 mg-potassium 1 tab PO BID #14 tabs 05/05/22 clavulanate 125 mg tablet Allergies Allergy/AdvReac Type Severity Reaction Status Date / Time No Known Allergies Allergy Verified 11/08/21 23:53 [No Known Allergies*] Review of Systems Review of Systems: Yes all other systems are reviewed and are negative Constitutional: Constitutional: Reports no additional constitutional complaints, Denies body ache(s), Denies chills, Denies fever(s), Reports headache(s) and Denies weakness Eyes: Eyes: Reports no additional eye complaints and Denies change in vision ENT: Reports system reviewed and no additional complaints, except as documented, Denies dizziness, Reports headache(s), Denies nasal congestion, Denies nasal discharge and Denies neck pain Cardiovascular: Cardiovascular: Reports no additional cardiovascular complaints, Reports chest pain, Denies leg edema and Denies dyspnea Respiratory: Respiratory: Reports no additional respiratory complaints, Denies cough and Denies dyspnea Gastrointestinal: Gastrointestinal: Reports no additional gastrointestinal complaints, Denies abdominal pain, Denies diarrhea, Denies nausea and Denies vomiting Genitourinary: Genitourinary: Denies urinary incontinence Musculoskeletal: Musculoskeletal: Reports no additional musculoskeletal complaints, Denies back pain, Denies arthralgias, Denies joint swelling, Denies neck pain, Denies numbness and Denies tingling Integumentary/Breasts: Skin/Breast: Reports system reviewed and no additional complaints, except as docu and Denies rash Neurologic: Reports system reviewed and no additional complaints, except as documented, Denies Abnormal speech present, Denies dizziness, Reports headache(s), Denies numbness, Denies tingling and Denies weakness PMFSH Past Medical History Attestation statement: The following information was validated with the patient. Source: old records reviewed and nursing notes reviewed Medical History Alcohol abuse Arthritis of knee Colon cancer COVID-19 virus infection Diverticular disease GERD (gastroesophageal reflux disease) Hypercholesterolemia Hypertension Knee osteoarthritis Overweight (BMI 25.0-29.9) Prostate cancer Surgical History H/O right hemicolectomy H/O umbilical hernia repair History of surgery History of total left knee replacement History of total right hip arthroplasty History of total right knee replacement Family History Family History Mother No problems noted. Father No problems noted. Social History Social History Alcohol intake: current Alcohol intake frequency: does not drink Patient Tobacco Use Status: Tobacco use Unknown Advance Directives: No Advance Directives Information Provided: Yes Current occupational status: retired Current occupation: Right Handed Physical Exam Vital Signs: Vital Signs: Last Vital Signs Temp 98.0 F 05/05/22 10:55 Pulse 96 05/05/22 10:55 Resp 18 05/05/22 10:55 BP 158/77 H 05/05/22 10:55 Pulse Ox 97 05/05/22 10:55 O2 Del Method Room Air 05/05/22 10:55 BMI result Body Mass Index 25.9 Const: General: cooperative, healthy appearing, comfortable and no acute distress Orientation/consciousness: oriented to person and oriented to place Limitations: no limitations HEENT: Head: Yes normal to inspection, No Brown's sign and Yes raccoon eyes Ears: hearing grossly normal bilaterally and TM normal on the right General nose exam: Normal external nose present Face and sinus: Yes normal facial exam Mouth: Normal oral and palatal mucosa present Throat: Yes posterior oropharynx normal Eyes: Other: No opthalmoplegia There is swelling/ecchymosis right periorbital area Conjunctivae: conjunctivae normal Sclerae: sclerae normal Corneas: corneas normal Pupils: Equal, round and reactive pupils present EOM: EOMs intact bilaterally Direct Ophthalmoscopy: normal light reflex Neck: Neck: Yes normal visual inspection Chest: Chest/axillae images: 1. +abrasion and TTP Resp: Effort & Inspection: normal respiratory effort Auscultation: clear to auscultation bilaterally Cardio: Rate: regular rate Rhythm: regular rhythm Peripheral pulses: Peripheral pulses 2+ throughout GI: Inspection: Yes normal to inspection Palpation (GI): Soft to palpation and nontender Auscultation: normal bowel sounds Back/Spine/Pelvis: Thoracic/Lumbar Spine: thoracic and lumbar spine normal to inspection Skin: General skin exam: no rashes or lesions noted Neuro: General: oriented to person, oriented to place, moves all extremities, no focal motor deficits and normal sensation to monofilament Cranial nerves: Yes Equal, round and reactive pupils present Cognition (Neuro): normal cognition Speech: No Abnormal speech present Motor exam (neuro): 5/5 motor strength present throughout Sensory Exam: Normal double simultaneous stimulation for sensation Extrem: Other: Distal to the left lower extremity there are palpable DP and PT pulses. Patient is able to flex and extend the foot and ankle with no difficulty. Sensation is intact distally. Elbow/forearm/wrist images: 1. +swelling, TTP with abrasion noted. FROM 2. +large laceration 9cm. FROM of left knee Course Course Course Narrative: CT shows right maxillary sinus fracture with no other facial fractures. Add itional CT scans are all negative. X-rays of the lower extremities show no acute fracture. See procedure note for wound repair. Patient placed in a knee immobilizer to prevent flexion of the extremity. Patient refuses need for any assistive devices like a walker or cane. Patient is alert and oriented x3. He has no focal neurological deficits. I did offer visiting nurses and or short-term rehab services to the patient but he does not want this. Patient reports he does live at home alone and has no family. He does have a friend to come and check on him daily. I called and spoke to his friend Renata who tells me that he sees the patient twice daily and help care for the patient. He does not feel the patient needs any additional services. He is able to go brick picker the patient's antibiotic for him and will also be able to bring the patient back for suture removal. I did explain to him that he should bring the patient back for any change or worsening signs or symptoms and he is agreeable to do this. Medications Administered Discontinued Medications Generic Name Dose Route Start Last Admin Trade Name Emily PRN Reason Stop Dose Admin Diphtheria/Tetanus/Acell Pertussis 0.5 ml 05/05/22 11:14 05/05/22 13:01 Diphth,Pertus(Acell),Tet Adult 0.5 Ml Syringe IM 05/05/22 11:15 0.5 ml .ONCE ONE Administration Iohexol 100 ml 05/05/22 12:42 05/05/22 12:42 Iohexol 350 Mg/Ml 100 Ml Infus..Btl IV 05/05/22 12:43 85 ml ONCE ONE Administration Lidocaine HCl 30 ml 05/05/22 14:32 05/05/22 15:07 Lidocaine Hcl 1 % Mpf 30 Ml Vial SUBCUT 05/05/22 14:33 30 ml ONCE ONE Administration Protocol Procedures Laceration Laceration 1: Site: other (hand) Side (If applicable): left Size (cm): 9 Description: linear Depth: simple, single layer Local Anesthetic: lidocaine 1% Amount of anesthesia used (mL): 10 Pre-repair: wound explored, irrigated extensively (Irrigated extensively with 2 L NS and betadine) and deep structures intact Skin layer closed with: vicryl Size (cm): 3-0 Number of sutures: 12 Technique: simple, interrupted Subcutaneous layer closed with: other (polysorb) Size: 4-0 Number of sutures: 6 Technique: simple, interrupted Medical Decision Making Medical Decision Making MDM Narrative: 76 yo male here after reported fall with ecchymosis to right periorbital area, right chest wall contusion, left leg laceration from reported trip and fall. NO reports of LOC. No AC therapy use. Patient alert, oriented with exception of date (?baseline). No other focal deficits. LS CTA. Abdomen soft and nontender. +large laceration to left lower leg. FROM. Smaller abrasion and swelling to RLE. Will need CT head/cervical spine/facial bones, chest/abdomen/pelvis, x-ray of bilateral LE, boostrix updated. Differential Diagnosis Differential Diagnoses: The differential diagnosis associated with the presentation includes facial fracture, ICH, contusion, cervical fracture/strain, knee fracture/laceration (low concern for open fracture, vascular injury). Lab Data MDM Lab Attestation statement: I reviewed the patient's lab results. 05/05/22 11:23 05/05/22 11:23 Labs: Lab Results 05/05/22 05/05/22 05/05/22 Range/Units 05:38 11:23 11:23 WBC 6.6 (4.8-10.8) X10*3/uL RBC 3.95 L (4.60-5.80) X10*6/uL Hgb 12.4 L (14.0-18.0) g/dl Hct 36.0 L (42.0-52.0) % MCV 91.1 (80.0-98.0) fL MCH 31.4 (27.0-33.0) pg MCHC 34.4 (31.0-36.0) g/dl RDW 12.5 (11.0-16.0) % Plt Count 232 (160-400) X10*3/uL MPV 9.6 (9.4-12.4) fL Immature Gran % (Auto) 0.5 H (0.0-0.4) % Neut % (Auto) 67.1 (45-73) % Lymph % (Auto) 19.5 L (20-40) % [place] % (Auto) 9.0 (2-11) % Eos % (Auto) 3.3 (0-4) % Baso % (Auto) 0.6 (0-2) % Lymph # (Auto) 1.3 (1.2-4.9) X10*3/uL [place] # (Auto) 0.6 (0.1-1.2) X10*3/uL Eos # (Auto) 0.2 (0.0-0.4) X10*3/uL Baso # (Auto) 0.0 (0.0-0.2) X10*3/uL Abs Immat Gran (auto) 0.03 (0.00-0.03) X10*3/uL Absolute Neuts (auto) 4.4 (2.0-8.3) x10*3/uL Absolute Nucleated RBC 0.000 (0.0-0.012) X10*3/uL Nucleated RBC % (auto) 0.0 (0.0-0.2) /100WBC PT 14.0 H (10.0-13.1) SEC INR 1.2 H (0.9-1.1) Sodium (135-145) mmol/L Potassium (3.3-5.1) mmol/L Chloride (96-108) mmol/L Carbon Dioxide (22-29) mmol/L Anion Gap (12-20) BUN (9-16) mg/dL Creatinine (0.5-1.4) mg/dL Estim Creat Clear Calc Estimated GFR Random Glucose (60-115) mg/dL Calcium (8.4-10.2) mg/dL Total Bilirubin (0.0-1.0) mg/dL Direct Bilirubin (0.0-0.5) mg/dL AST (5-37) U/L ALT (0-40) U/L Alkaline Phosphatase (39-117) U/L Total Protein (6.5-8.0) g/dL Albumin (3.5-5.0) g/dL COVID-19 (HERNANDEZ) Negative (Negative) COVID-19 Clin Com See Note 05/05/22 Range/Units 11:23 WBC (4.8-10.8) X10*3/uL RBC (4.60-5.80) X10*6/uL Hgb (14.0-18.0) g/dl Hct (42.0-52.0) % MCV (80.0-98.0) fL MCH (27.0-33.0) pg MCHC (31.0-36.0) g/dl RDW (11.0-16.0) % Plt Count (160-400) X10*3/uL MPV (9.4-12.4) fL Immature Gran % (Auto) (0.0-0.4) % Neut % (Auto) (45-73) % Lymph % (Auto) (20-40) % [place] % (Auto) (2-11) % Eos % (Auto) (0-4) % Baso % (Auto) (0-2) % Lymph # (Auto) (1.2-4.9) X10*3/uL [place] # (Auto) (0.1-1.2) X10*3/uL Eos # (Auto) (0.0-0.4) X10*3/uL Baso # (Auto) (0.0-0.2) X10*3/uL Abs Immat Gran (auto) (0.00-0.03) X10*3/uL Absolute Neuts (auto) (2.0-8.3) x10*3/uL Absolute Nucleated RBC (0.0-0.012) X10*3/uL Nucleated RBC % (auto) (0.0-0.2) /100WBC PT (10.0-13.1) SEC INR (0.9-1.1) Sodium 135 (135-145) mmol/L Potassium 4.1 (3.3-5.1) mmol/L Chloride 103 (96-108) mmol/L Carbon Dioxide 24 (22-29) mmol/L Anion Gap 12 (12-20) BUN 11 (9-16) mg/dL Creatinine 0.77 (0.5-1.4) mg/dL Estim Creat Clear Calc 90.7 Estimated GFR > 60 Random Glucose 130 H (60-115) mg/dL Calcium 9.0 (8.4-10.2) mg/dL Total Bilirubin 1.6 H (0.0-1.0) mg/dL Direct Bilirubin 0.4 (0.0-0.5) mg/dL AST 15 (5-37) U/L ALT 9 (0-40) U/L Alkaline Phosphatase 101 (39-117) U/L Total Protein 6.1 L (6.5-8.0) g/dL Albumin 3.8 (3.5-5.0) g/dL COVID-19 (HERNANDEZ) (Negative) COVID-19 Clin Com Independent Interpretation I performed an independent interpretation of an: Plain X-Ray and CT Scan Interpretation: I independently reviewed the CT scans and the x-rays and agree with radiologist's report Radiology Impression Discussion of test interpretation with radiology: I have reviewed the radiologist's reading. Radiologist Impression: EXAMINATION: CT HEAD AND FACIAL BONES WITHOUT CONTRAST CLINICAL INFORMATION: Head and facial pain status post trauma.? COMPARISON: 11/09/[address] scan. TECHNIQUE: Multiple axial images of the head and facial bones were obtained without the administration of intravenous contrast. Coronal and sagittal reformatted images were obtained. Coronal and sagittal reformatted images were obtained. This CT examination was performed using dose optimization techniques as appropriate, variously including the following: *Automated exposure control *Adjustment of mA and/or kV according to patient size (this includes techniques or standardized protocols for targeted exams where dose is matched to indication/reason for exam; i.e. extremities or head) *Use of iterative reconstruction technique DLP: 499.62, 690.61 mGy-cm FINDINGS: Head: There is mild to moderate widening of the cortical sulci and associated ventriculomegaly. The lateral ventricles are symmetrical. The third and fourth ventricles are in their normal midline position. The basilar and prepontine cisterns are unremarkable. There is no acute intra or extracerebral abnormality. There is no mass effect or midline shift. Sections through the bony calvarium are unremarkable. Facial bones: Moderate soft tissue swelling overlies the right maxillary bone and orbit. Minimally displaced fractures of the superior, inferolateral and medial staples of the right maxillary sinus are seen. Mild to moderate mucosal thickening and a small air-fluid level is seen in the right maxillary sinus. The right orbit and orbital contents are unremarkable. 2 ovoid follicles are seen in the right nasal cavity. Mild to moderate mucosal thickening is seen in the left maxillary sinus. Small air-fluid level in the sphenoid sinus moderate to severe mucosal thickening in the ethmoid sinuses, right greater than left. The frontal sinuses are clear. The ostiomeatal complexes are occluded by mucosal thickening. The mandible is intact. Mild temporomandibular degenerative joint changes are seen. The pterygoid plates are intact. ? CT/CT head/brain wo IV con IMPRESSION: 1. No acute intracranial pathology. 2. Moderate soft tissue swelling overlying the right maxillary sinus with minimally displaced fractures detailed above. 3. Paranasal sinus and nasal canal inflammatory changes most pronounced in the ethmoid sinuses. Right maxillary sinus changes are likely secondary to inflammatory changes as well, but a component may be secondary to trauma. ? FINDINGS: There is straightening of the normal cervical lordosis with normal spinal alignment. Moderate to severe multilevel degenerative changes are seen most pronounced at C3-C4, C5-C6 and C6-C7. Mild grade 1 anterolisthesis is seen at C7-T1. Multilevel degenerative changes are seen in the facet joints bilaterally. The spinous processes are intact. The cervical soft tissues are unremarkable. Moderate to severe atherosclerosis is seen in the carotid bulbs bilaterally, left greater than right. There is no lymphadenopathy. The thyroid gland is unremarkable. Minimal biapical scarring is noted. CT/CT cervical spine wo IV con IMPRESSION: 1.? Straightening of the normal cervical lordosis may be secondary to positioning and/or muscle spasm. 2.? Multilevel degenerative changes without acute abnormality. IMPRESSION: *? No evidence of acute traumatic pathology in the chest, abdomen or pelvis. *? The pulmonary nodules are stable compared to 11/09/2021. Consider chest CT follow up in another 12 to 18 months, if deemed appropriate, based on Fleischner Society guidelines. *? Several old left rib fractures are identified. No evidence of an acute displaced rib fracture or chest wall hematoma. *? No liver or splenic laceration. No hemoperitoneum or pneumoperitoneum. ? FINDINGS: The bones and soft tissues are normal. No fracture. No osseous lesions. Left knee hardware appears intact. XR/XR tibia fibula LT 2V IMPRESSION: No acute fracture or hardware abnormality. ? FINDINGS: The patient is status post right knee arthroplasty showing good anatomic alignment and no evidence for hardware malfunction. Nonacute deformity in the distal right femur. Possible small suprapatellar joint effusion. Mild prepatellar soft tissue swelling.? XR/XR knee RT 4V IMPRESSION: ? 1. No acute fracture. No hardware abnormality. 2. Mild soft tissue swelling and possible small suprapatellar joint effusion. Correlate with physical exam. ? Discharge Plan Discharge Clinical Impression: Laceration of knee, Fracture of maxillary sinus Patient Disposition: Home, Self-Care Instructions: Laceration (DC), Facial Fracture (ED) Additional Instructions: Sutures out in 10 days. You may wash the area with soap and water daily. No soaking with water Avoid bending the knee and use the immobilzer Take all the antibiotics as prescribed Monitor for signs of infection such as redness, fever, drainage We did offer you short-term rehab and visiting nurse services but you declined the Prescriptions: New amoxicillin-pot clavulanate 875-125 mg tablet 1 tab PO BID Qty: 14 0RF No Action polyethylene glycol 3350 [Miralax] 17 gram/dose powder 17 g PO DAILY Qty: 119 0RF bisacodyl [Dulcolax (bisacodyl)] 10 mg suppository 10 mg WA DAILY PRN (Reason: constipation) Qty: 12 0RF Referrals: Jamar England MD [Primary Care Provider] - 1 week Interventions: ED Discharge Assessment Last Done: 05/05/22 16:39 Discharge Date/Time: 05/05/22 17:06
[2022-05-05 11:34] LABS: MANUAL DIFF FLAG NO
[2022-05-05 11:38] LABS: Basophils Percent Auto 0.6 % (0-2); Eosinophils Absolute Auto 0.2 X10*3/uL (0.0-0.4); Eosinophils Percent Auto 3.3 % (0-4); Hemoglobin 12.4 g/dl (14.0-18.0); Imm Gran Abs Auto 0.03 X10*3/uL (0.00-0.03); Imm Gran Pct Auto 0.5 % (0.0-0.4); Lymphocytes Absolute Auto 1.3 X10*3/uL (1.2-4.9); Lymphocytes Percent Auto 19.5 % (20-40); Mean Corpuscular HGB Conc 34.4 g/dl (31.0-36.0); Mean Corpuscular Hemoglobin 31.4 pg (27.0-33.0); Mean Corpuscular Volume 91.1 fL (80.0-98.0); Mean Platelet Volume 9.6 fL (9.4-12.4); Monocytes Absolute Auto 0.6 X10*3/uL (0.1-1.2); Neutrophils Absolute Auto 4.4 x10*3/uL (2.0-8.3); Neutrophils Percent Auto 67.1 % (45-73); Platelet Count 232 X10*3/uL (160-400); Red Blood Count 3.95 X10*6/uL (4.60-5.80); Red Cell Distribution Width 12.5 % (11.0-16.0); White Blood Count 6.6 X10*3/uL (4.8-10.8)
[2022-05-05 11:44] LABS: INTERNATIONAL NORM RATIO 1.2 (0.9-1.1)
[2022-05-05 11:54] LABS: Alanine Aminotransferase 9 U/L (0-40); Albumin Level 3.8 g/dL (3.5-5.0); Alkaline Phosphatase 101 U/L (39-117); Anion Gap 12 (12-20); Aspartate Amino Transferase 15 U/L (5-37); Bilirubin Direct 0.4 mg/dL (0.0-0.5); Bilirubin Total 1.6 mg/dL (0.0-1.0); Blood Urea Nitrogen 11 mg/dL (9-16); Carbon Dioxide 24 mmol/L (22-29); Chloride 103 mmol/L (96-108); Creatinine Clr Calc Pharmacy 90.7; Estimated Glomerular Filt Rate > 60; Glucose Random 130 mg/dL (60-115); Potassium 4.1 mmol/L (3.3-5.1); Sodium 135 mmol/L (135-145); Total Protein 6.1 g/dL (6.5-8.0)
[2022-05-05 11:59] LABS: COVID-19 Test Negative (Negative); IDNOW Serial# 55D5AD1C
[2022-05-05] MEDS: iohexoL 350 MG/ML 100 ML INFUS..BTL IV (12:42)
[2022-05-05] MEDS: Diphth,Pertus(ACell),Tet Adult 0.5 ML SYRINGE IM (13:01)
[2022-05-05] MEDS: Lidocaine HCl 1 % MPF 30 ML VIAL SUBCUT (15:07)
--- NOTE | 2022-05-05 16:29 | PC.NURSE ---
suture repair by arsen marquis
== END 2022-05-05 17:06 | disposition home or self-care (01) ==
PROVIDERS: Nurse Practitioner Family; Emergency Provider Emergency Medicine; PCP Internal Medicine
DX: S02.19XA Other fracture of base of skull, initial encounter for closed fracture (principal); S00.11XA Contusion of right eyelid and periocular area, initial encounter; S20.211A Contusion of right front wall of thorax, initial encounter; S81.812A Laceration without foreign body, left lower leg, initial encounter; W01.10XA Fall on same level from slipping, tripping and stumbling with subsequent striking against unspecified object, initial encounter; Y93.9 Activity, unspecified; Y92.481 Parking lot as the place of occurrence of the external cause; Y99.9 Unspecified external cause status; Z20.822 Contact with and (suspected) exposure to COVID-19
CPT/HCPCS: 12034; 12044; 36415; 70450; 70486; 71260; 72125; 73564; 73590; 74177; 80048; 80076; 85025; 85610; 87635; 90471; 90715; 99284; Q9967

== ENCOUNTER 2022-08-12 09:29 | Emergency (ER) | payer MEDICARE, SELFPAY ==
[2022-08-12 09:37] VITALS: BP 139/75; BP 148/64; PULSE 80; RESP 18; TEMP 36.6; O2SAT 95; O2SAT 98; BMI 27.5
--- NOTE | 2022-08-12 09:38 | ED_ITS ---
HPI - General Adult General Chief complaint: Abdominal Pain Stated complaint: constipation x 6 days Time Seen by Provider: 08/12/22 09:38 Source: patient and EMS Mode of arrival: EMS Limitations: no limitations History of Present Illness HPI narrative: Patient is a 76 year old assigned male at with a history of constipation, GERD, HTN, and alcohol abuse presenting to the emergency department today with constipation and weakness . Patient states that he has not been able to poop for 6 days and he would like help with that. Patient states that he is also having intermittent weakness with walking and is concerned about that. Patient denies any dizziness, lightheadedness, abdominal pain, nausea, vomiting, fever, chills, blurry vision, double vision, loss of vision, chest pain, difficulty breathing, shortness of breath, back pain, night sweats, pain with urination, increased urinary frequency, increased urinary urgency, blood in his urine or stool, syncope or a near syncopal episode, recent trauma or falls, bowel incontinence, bladder incontinence, bladder retention, or any other complaints at this time. Onset (ago): day(s) (6) Severity: mild Severity scale (1-10): 2 Relieving factors: none Exacerbating factors: none Associated symptoms: weakness Treatments prior to arrival: none Related Data Previous Rx's Medication Instructions Recorded bisacodyl 10 mg rectal suppository 10 mg OK DAILY PRN constipation 02/27/22 (Dulcolax (bisacodyl)) #12 ea polyethylene glycol 3350 17 17 g PO DAILY #119 grams 02/27/22 gram/dose oral powder (Miralax) amoxicillin 875 mg-potassium 1 tab PO BID #14 tabs 05/05/22 clavulanate 125 mg tablet Allergies Allergy/AdvReac Type Severity Reaction Status Date / Time No Known Allergies Allergy Verified 08/12/22 09:37 [No Known Allergies*] Review of Systems Constitutional: Constitutional: Reports no additional constitutional complaints, Denies chills, Denies fever(s), Denies night sweats and Reports weakness Eyes: Eyes: Reports no additional eye complaints, Denies blurry vision, Denies change in vision, Denies diplopia, Denies eye discharge, Denies loss of vision and Denies eye pain ENT: Denies dizziness Cardiovascular: Cardiovascular: Reports no additional cardiovascular complaints, Denies chest pain, Denies lightheadedness, Denies Loss of Consciousness and Denies dyspnea Respiratory: Respiratory: Reports no additional respiratory complaints and Denies dyspnea Gastrointestinal: Gastrointestinal: Reports no additional gastrointestinal complaints, Denies abdominal pain, Denies melena, Denies hematochezia, Denies change in bowel habits, Denies change in stool character and Reports constipation Genitourinary: Genitourinary: Reports no additional male genitourinary complaints, Denies hematuria, Denies oliguria, Denies difficulty urinating, Denies dysuria, Denies urinary frequency, Denies urinary hesitancy, Denies urinary incontinence and Denies urinary urgency Musculoskeletal: Musculoskeletal: Reports no additional musculoskeletal complaints, Denies numbness and Denies tingling Neurologic: Denies dizziness, Denies loss of vision, Denies numbness, Denies tingling and Reports weakness Psychiatric: Psychiatric: Reports no additional psychiatric complaints Endocrine: Endocrine: Reports no additional endocrine complaints Hematologic/Lymphatic: Hematologic/Lymphatic: Reports no additional hematologic/lymphatic complaints Allergic/Immunologic: Allergic/Immunologic: Reports no additional allergic/immunologic complaints [facility] Past Medical History Attestation statement: The following information was validated with the patient. Source: old records reviewed, nursing notes reviewed and other (EMS provided additional history and confirmed the history provided by the patient.) Medical History Alcohol abuse Arthritis of knee Colon cancer COVID-19 virus infection Diverticular disease GERD (gastroesophageal reflux disease) Hypercholesterolemia Hypertension Knee osteoarthritis Overweight (BMI 25.0-29.9) Prostate cancer Surgical History H/O right hemicolectomy H/O umbilical hernia repair History of surgery History of total left knee replacement History of total right hip arthroplasty History of total right knee replacement Family History Family History Mother No problems noted. Father No problems noted. Social History Social History Alcohol intake: never Patient Tobacco Use Status: Tobacco use Unknown Smoked in Last 30 Days: No Advance Directives: Yes Advance Directives on File: Yes Advance Directives Date on File: 11/10/21 Current occupational status: retired Current occupation: Right Handed Physical Exam ED Vital Signs: Vital Signs - 24 hr 08/12/22 09:37 08/12/22 12:13 Temperature 97.8 F Pulse Rate 80 81 Respiratory Rate 18 17 Blood Pressure 139/75 133/70 Pulse Oximetry 95 97 Oxygen Delivery Method Room Air Room Air BMI result Body Mass Index 27.5 Const General: cooperative, no acute distress, alert and awake Nutritional Appearance: well nourished Orientation/consciousness: patient oriented x3 Limitations: no limitations HENMT Head: Yes normal to inspection and Yes atraumatic Ears: hearing grossly normal bilaterally and external ears normal General nose exam: Normal external nose present, no nasal discharge noted and no epistaxis Face and sinus: Yes normal facial exam, No abrasion and No laceration Mouth: Normal oral and palatal mucosa present, no drooling and no muffled voice Eyes General: appearance normal, both eyes and all related structures Periorbital: periorbital findings normal Eyelids: Yes eyelids normal Conjunctivae: conjunctivae normal Pupils: Equal, round and reactive pupils present EOM: EOMs intact bilaterally Neck Neck: Yes normal visual inspection, Yes full ROM and Yes no lymphadenopathy Chest Chest palpation & inspection: normal inspection of the chest Resp Effort & Inspection: normal respiratory effort and able to speak in complete sentences GI Inspection: Yes normal to inspection Neuro General: patient oriented x3 and moves all extremities Cranial nerves: Yes Equal, round and reactive pupils present Cognition (Neuro): normal cognition Motor exam (neuro): 5/5 motor strength present throughout Sensory Exam: Normal double simultaneous stimulation for sensation Coordination: [id number] test normal Extrem General: Yes normal to inspection, Yes full ROM and Yes capillary refill normal Psych Appearance: grossly normal Mental Status: mental status grossly normal Affect: normal affect Attitude: cooperative Thought process: Normal thought process present Thought content: Normal thought content present Insight: Good insight present (Psych) Medical Decision Making Medical Decision Making MDM Narrative: Patient is a 76 year old assigned male at with a history of constipation, GERD, HTN, and alcohol abuse presenting to the emergency department today with constipation and weakness. Patient's physical exam was unremarkable. Patient's blood work was unremarkable. Patient's EKG was unremarkable. Patient's chest/abdomen x-ray showed moderate gas and stool present throughout the colon without obstruction. I explained my physical exam findings as well as all test results to the patient. I answered all questions asked by the patient. Patient received an enema which he stated helped his symptoms significantly. I stressed the importance of the patient taking his medication as prescribed. I stressed the importance of the patient following up with his primary care provider and a GI specialist. I stressed the importance of the patient returning to the emergency department immediately if his symptoms were to worsen or if he were to develop any dizziness, shortness of breath, difficulty breathing, chest pain, blurry vision, loss of vision, nausea, vomiting, abdominal pain, fever, chills, back pain, or any other complaints. Patient verbalized agreement and understanding with this treatment plan and discharge. Differential Diagnosis Differential Diagnoses: The differential diagnosis associated with the presentation includes Weakness Constipation Alcohol abuse Bowel obstruction Admission/Observation Consideration of admission/observation: Escalation of care including admission/observation considered Patient would have been admitted to the hospital had his work up had any findings where hospital admission was appropriate and his clinical presentation warranted hospital admission. Lab Data MDM Lab Attestation statement: I reviewed the patient's lab results. My interpretation of these studies and their corresponding values is that they are grossly normal. 08/12/22 10:25 08/12/22 10:25 Labs: Lab Results 08/12/22 08/12/22 08/12/22 Range/Units 10:25 10:25 10:25 WBC 5.0 (4.8-10.8) X10*3/uL RBC 3.91 L (4.60-5.80) X10*6/uL Hgb 12.0 L (14.0-18.0) g/dl Hct 35.3 L (42.0-52.0) % MCV 90.3 (80.0-98.0) fL MCH 30.7 (27.0-33.0) pg MCHC 34.0 (31.0-36.0) g/dl RDW 12.8 (11.0-16.0) % Plt Count 218 (160-400) X10*3/uL MPV 9.9 (9.4-12.4) fL Immature Gran % (Auto) 0.2 (0.0-0.4) % Neut % (Auto) 57.4 (45-73) % Lymph % (Auto) 24.6 (20-40) % Price % (Auto) 11.6 H (2-11) % Eos % (Auto) 5.6 H (0-4) % Baso % (Auto) 0.6 (0-2) % Lymph # (Auto) 1.2 (1.2-4.9) X10*3/uL Price # (Auto) 0.6 (0.1-1.2) X10*3/uL Eos # (Auto) 0.3 (0.0-0.4) X10*3/uL Baso # (Auto) 0.0 (0.0-0.2) X10*3/uL Abs Immat Gran (auto) 0.01 (0.00-0.03) X10*3/uL Absolute Neuts (auto) 2.9 (2.0-8.3) x10*3/uL Absolute Nucleated RBC 0.000 (0.0-0.012) X10*3/uL Nucleated RBC % (auto) 0.0 (0.0-0.2) /100WBC Sodium 137 (135-145) mmol/L Potassium 4.1 (3.3-5.1) mmol/L Chloride 105 (96-108) mmol/L Carbon Dioxide 26 (22-29) mmol/L Anion Gap 10 L (12-20) BUN 16 (9-16) mg/dL Creatinine 0.71 (0.5-1.4) mg/dL Estim Creat Clear Calc 95.6 Estimated GFR > 60 Random Glucose 118 H (60-115) mg/dL Calcium 9.6 D (8.4-10.2) mg/dL Magnesium 2.3 (1.6-2.6) mg/dL Total Bilirubin 1.6 H (0.0-1.0) mg/dL AST 16 (5-37) U/L ALT 10 (0-40) U/L Alkaline Phosphatase 84 (39-117) U/L Troponin I High Sens (<3.5-35.0) ng/L B-Natriuretic Peptide 45 (<100) pg/mL Total Protein 6.7 (6.5-8.0) g/dL Albumin 3.9 (3.5-5.0) g/dL Lipase 12 (8-78) U/L Ethyl Alcohol mg/dL 08/12/22 08/12/22 Range/Units 10:25 10:25 WBC (4.8-10.8) X10*3/uL RBC (4.60-5.80) X10*6/uL Hgb (14.0-18.0) g/dl Hct (42.0-52.0) % MCV (80.0-98.0) fL MCH (27.0-33.0) pg MCHC (31.0-36.0) g/dl RDW (11.0-16.0) % Plt Count (160-400) X10*3/uL MPV (9.4-12.4) fL Immature Gran % (Auto) (0.0-0.4) % Neut % (Auto) (45-73) % Lymph % (Auto) (20-40) % Price % (Auto) (2-11) % Eos % (Auto) (0-4) % Baso % (Auto) (0-2) % Lymph # (Auto) (1.2-4.9) X10*3/uL Price # (Auto) (0.1-1.2) X10*3/uL Eos # (Auto) (0.0-0.4) X10*3/uL Baso # (Auto) (0.0-0.2) X10*3/uL Abs Immat Gran (auto) (0.00-0.03) X10*3/uL Absolute Neuts (auto) (2.0-8.3) x10*3/uL Absolute Nucleated RBC (0.0-0.012) X10*3/uL Nucleated RBC % (auto) (0.0-0.2) /100WBC Sodium (135-145) mmol/L Potassium (3.3-5.1) mmol/L Chloride (96-108) mmol/L Carbon Dioxide (22-29) mmol/L Anion Gap (12-20) BUN (9-16) mg/dL Creatinine (0.5-1.4) mg/dL Estim Creat Clear Calc Estimated GFR Random Glucose (60-115) mg/dL Calcium (8.4-10.2) mg/dL Magnesium (1.6-2.6) mg/dL Total Bilirubin (0.0-1.0) mg/dL AST (5-37) U/L ALT (0-40) U/L Alkaline Phosphatase (39-117) U/L Troponin I High Sens 4.0 (<3.5-35.0) ng/L B-Natriuretic Peptide (<100) pg/mL Total Protein (6.5-8.0) g/dL Albumin (3.5-5.0) g/dL Lipase (8-78) U/L Ethyl Alcohol < 10 mg/dL Independent Interpretation I performed an independent interpretation of an: EKG and Plain X-Ray Interpretation: My interpretation is in agreement with the radiologist's impression of this imaging study. EXAMINATION: XR ABDOMEN COMPLETE CLINICAL INDICATION: Constipation and weakness COMPARISON: CT abdomen pelvis 05/05/2022 TECHNIQUE: 2 views of the abdomen. FINDINGS: There is evidence of old abdominal wall hernia repair, right upper quadrant clips status, right hip prosthesis and fiducial markers in the prostate bed. Severe degenerative changes are present throughout the spine with scoliosis convex to right. Right total hip prosthesis with degenerative changes in the left hip. Moderate gas and stool present throughout the colon without obstruction. No free intraperitoneal air seen on upright radiographs. XR/XR acute abdomen series IMPRESSION: Moderate gas and stool present throughout the colon without obstruction. Dictated By: Joss Fierro MD Signed By: Electronically signed by Joss Fierro MD 08/12/22 1104 --- Vent. Rate: 071 BPM ? ? Atrial Rate: 071 BPM P-R Int: 162 ms? QRS Dur: 098 ms QT Int: 396 ms ? ? ? P-R-T Axes: 011 059 057 degrees QTc Int: 430 ms ? 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 Electronically Signed By:ALISTAIR HEDRICK Dictated By: Alistair Hedrick MD Signed By: Electronically signed by Alistair Hedrick MD 08/12/22 1201 Radiology Impression Discussion of test interpretation with radiology: I have reviewed the radiologist's reading. Independent Historian Clinical information obtained from an independent historian. History obtained from or confirmed by: EMS (EMS provided additional history and confirmed the history provided by the patient.) External Record Review External record reviewed: Other (reviewed previous ED visits and previous imaging.) Tests considered The following testing was considered but not selected: Considered a CT scan however, patient's clinical presentation and lab results did not warrant it. Chronic Conditions Patient?s care impacted by: Other (alcohol abuse, constipation.) Discharge Plan Discharge Clinical Impression: Weakness, Constipation Patient Disposition: Home, Self-Care Instructions: Constipation (DC), Weakness (ED) Additional Instructions: Continue taking your constipation medications as prescribed. Follow up with your primary care provider and a GI specialist. Return to the emergency department immediately if your symptoms worsen or if you develop any dizziness, shortness of breath, difficulty breathing, chest pain, blurry vision, loss of vision, nausea, vomiting, abdominal pain, fever, chills, back pain, or any other complaints. Prescriptions: No Action polyethylene glycol 3350 [Miralax] 17 gram/dose powder 17 g PO DAILY Qty: 119 0RF bisacodyl [Dulcolax (bisacodyl)] 10 mg suppository 10 mg OK DAILY PRN (Reason: constipation) Qty: 12 0RF amoxicillin-pot clavulanate 875-125 mg tablet 1 tab PO BID Qty: 14 0RF Referrals: [facility] [place] [facility] [Provider Group] (Call to establish and follow up with a GI specialist.) [facility] [place] Family Medicine [Provider Group] (Call to establish and follow up with a primary care provider. If you already have a primary care provider, please follow up with them.) [facility] [place] Primary Care, Sary [Provider Group] (Call to establish and follow up with a primary care provider. If you already have a primary care provider, please follow up with them.) [facility] [place] Primary Care,Amanda [Provider Group] (Call to establish and follow up with a primary care provider. If you already have a primary care provider, please follow up with them.) Print Language: French
--- NOTE | 2022-08-12 11:59 | PC.NURSE ---
Soap suds enema given, pt tolerated 200cc, advised to not get up without staff help. commode at bedside
[2022-08-12 12:13] VITALS: BP 133/70; PULSE 81; RESP 17; O2SAT 97
== END 2022-08-12 16:00 | disposition home or self-care (01) ==
PROVIDERS: Emergency Provider Emergency Medicine
DX: K59.00 Constipation, unspecified (principal); R53.1 Weakness; F10.10 Alcohol abuse, uncomplicated; Y90.0 Blood alcohol level of less than 20 mg/100 ml; I10 Essential (primary) hypertension; E78.00 Pure hypercholesterolemia, unspecified; K21.9 Gastro-esophageal reflux disease without esophagitis; Z85.038 Personal history of other malignant neoplasm of large intestine; Z85.46 Personal history of malignant neoplasm of prostate; Z79.899 Other long term (current) drug therapy
CPT/HCPCS: 36415; 74022; 80053; 80307; 83690; 83735; 83880; 84484; 85025; 93005; 99284; 99285

== ENCOUNTER 2022-11-17 19:25 | Inpatient (IN) | payer MEDICARE, SELFPAY ==
--- NOTE | ~2022-11-17 | XR_ITS ---
EXAMINATION: XR CHEST CLINICAL INFORMATION: SOB. COMPARISON: None available. TECHNIQUE: Frontal view of the chest was obtained. FINDINGS: The lungs are well-expanded and clear of acute pneumonic process. The heart size and pulmonary vascularity is normal. No gross bony abnormality seen. XR/XR chest 1V IMPRESSION: Unremarkable chest exam.
[2022-11-17 19:36] VITALS: BP 144/80; BP 146/67; PULSE 95; PULSE 98; RESP 18; TEMP 37.3; O2SAT 95; O2SAT 98; BMI 25.3
--- NOTE | 2022-11-17 20:06 | PC.NURSE ---
this rn assumed care of pt. pt TOBI from home, neighbor called ambulance for pt d/t pt screaming in his home, increased weakness and lethargy. pt reports weakness with walker. pt alert to self and place. pt lung sounds clear bilaterally. pt denies chest pain and SOB. denies abdominal pain, nausea and vomiting pt reports moving bowels this morning. pt reports no urinary issues at this time. iv established at this time and labs sent.
--- NOTE | 2022-11-17 21:12 | ED.GENADULT ---
HPI - General Adult General Chief complaint: Weakness Stated complaint: feeling weak Time Seen by Provider: 11/17/22 19:58 Source: patient and EMS Mode of arrival: EMS Limitations: no limitations History of Present Illness HPI narrative: Patient is a 77-year-old male who presents emergency department via EMS. Reportedly the neighbor called 911 as they heard him screaming. Upon EMS arrival he was very weak and unable to walk steadily despite the use of his walker. He was noted to be very tired/ lethargic upon their arrival. At the time of my initial assessment he is alert and oriented x3, speaking clear full sentences. States that he came here today because he has been very tired. When asked whether he may have been screaming in his home as his neighbor reported he denies this. Currently denies headache, neck pain, chest pain, shortness of breath, nausea vomiting, abdominal pain, numbness or tingling of the extremities. He denies any urinary symptoms. Related Data Previous Rx's Medication Instructions Recorded bisacodyl 10 mg rectal suppository 10 mg [place] DAILY PRN constipation 02/27/22 (Dulcolax (bisacodyl)) #12 ea polyethylene glycol 3350 17 17 g PO DAILY #119 grams 02/27/22 gram/dose oral powder (Miralax) amoxicillin 875 mg-potassium 1 tab PO BID #14 tabs 05/05/22 clavulanate 125 mg tablet Allergies Allergy/AdvReac Type Severity Reaction Status Date / Time No Known Allergies Allergy Verified 11/17/22 19:45 [No Known Allergies*] Review of Systems Review of Systems: Yes all other systems are reviewed and are negative PMFSH Past Medical History Attestation statement: The following information was validated with the patient. Source: old records reviewed Medical History COVID-19 virus infection Diverticular disease Colon cancer Overweight (BMI 25.0-29.9) Hypertension Knee osteoarthritis GERD (gastroesophageal reflux disease) Hypercholesterolemia Alcohol abuse Prostate cancer Arthritis of knee Surgical History History of surgery H/O umbilical hernia repair H/O right hemicolectomy History of total right hip arthroplasty History of total right knee replacement History of total left knee replacement Family History Family History Mother No problems noted. Father No problems noted. Social History Social History Alcohol intake: never Patient Tobacco Use Status: Tobacco use Unknown Smoked in Last 30 Days: No Use of substances other than those prescribed or required for medical reasons: No Advance Directives: Yes Advance Directives on File: Yes Advance Directives Date on File: 11/10/21 Current occupational status: retired Current occupation: Right Handed Physical Exam ED Vital Signs: Vital Signs - 24 hr 11/17/22 19:36 11/17/22 23:10 11/18/22 00:00 Temperature 99.1 F 98.1 F Pulse Rate 95 87 82 Respiratory Rate 18 20 18 Blood Pressure 146/67 H 166/78 H 166/79 H Pulse Oximetry 95 96 98 Oxygen Delivery Method Room Air Room Air Room Air BMI result Body Mass Index 25.3 Appearance: Alert.?Oriented to person, and place, disorientation to time. No acute distress.?Normal affect. Eyes: Pupils equal, round and reactive to light.? EOMI. No nystagmus. ENT: Pharynx normal.?? Neck: Normal inspection.? Neck supple.??No midline cervical spine tenderness, step-offs, deformities. CVS: Heart sounds normal. Normal heart rate and rhythm.? Pulses normal.?? Respiratory: No respiratory distress.? Lung sounds clear to auscultation bilaterally?? Abdomen: Soft and non-tender. Normoactive bowel sounds. No pulsatile mass.?? Skin: Skin warm and dry.? Normal skin color.? Normal skin turgor.?? Extremities: No lower extremity edema.? No calf ttp? Neuro: Moves all extremities spontaneously. Sensation intact bilaterally. CN II-XII intact. No focal neuro deficits. Course Reevaluation(s) Reevaluation #1: CBC is without leukocytosis, baseline normocytic anemia not needing transfusion criteria. CMP revealing hyponatremia with sodium of 126 (this is noted on prior serum labs as well, in November 2019 to had sodium of 126, repeated the following day at 131), lactic acidosis of 2.1, a rate is 95, he is afebrile and without tachypnea leukocytosis, does not meets SIRS criteria, blood cultures were ordered via protocol labs from nursing staff. Alcohol level of 35. LFTs and Ammonia level within normal limits. Troponin is elevated at 92.6, he denies chest pain or shortness of breath, EKG revealing normal sinus rhythm with ventricular rate of 95, reviewed EKG with ED attending Dr. English in comparison to EKG from August of 2022, expressed my concerns for ST elevation in leads V2 and V3 (similarly appreciated in lead V3 in August 30). Dr. English feels at this time not consistent with acute STEMI, plan to obtain delta troponin for comparison, he is currently without any anginal symptoms. Time: 21:12 Reevaluation #2: At this time upon re-evaluation of the patient he now states that he fell in the shower, he is unable to tell me events surrounding this fall. It is unclear whether he had any precipitating symptoms. CT of the head is pending at this time. Given elevated troponin, will hold off on aspirin 324 mg orally until head CT has resulted. Time: 21:26 Reevaluation #3: Delta troponin 189.4, continues to deny anginal symptoms. I consulted with Cardiology on-call; Dr. Streeter, discussed history and physical examination, at this time he advises no indication for heparinization, and recommended consideration of pulmonary embolism, patient is not the greatest historian, D-dimer to be obtained for further evaluation. Upon review of his serum in urine Osmol/sodium levels, at this time most consistent with SIADH, will proceed with fluid restriction for management. Time: 22:44 Additional Reevaluation(s): 2336 - D-dimer is elevated, I discussed this case with ED attending Dr. English, CT angio of the chest required for evaluation of pulmonary embolism, however concern for given contrast without administering IV fluids, and potential kidney injury, although administering fluids may further worsen his hyponatremia. He advises normal saline at 100 mL/hour. 00:20 CT is pending at this time. I discussed this case with hospitalist; Dr. Castrejon, who accepts patient for admission. Medications Administered Discontinued Medications Generic Name Dose Route Start Last Admin Trade Name Freq PRN Reason Stop Dose Admin Sodium Chloride 1,000 mls @ 100 mls/hr 11/17/22 23:45 11/18/22 00:44 Ns IVCONT 11/18/22 09:44 Infused .Q10H LORA Infusion Iohexol 65 ml 11/18/22 00:16 11/18/22 00:17 Iohexol 350 Mg/Ml 100 Ml Infus..Btl IV 11/18/22 00:17 65 ml ONCE ONE Administration Medical Decision Making Medical Decision Making MDM Narrative: Patient is a 77-year-old male with past medical history of hypertension, GERD, alcohol use disorder, hypercholesterolemia, arthritis, colon cancer, prostate cancer presenting to emergency department for evaluation of weakness and fatigue. He is a vague historian about the events prior to his arrival, he is in no apparent distress at the time my examination. Will obtain CBC to evaluate for leukocytosis/ anemia, CMP and lipase to evaluate for abnormal electrolytes /abnormal renal function/ abnormal hepatic/biliary function, EKG and troponin to evaluate for ischemia/ACS, toxicology and and Urinalysis. Differential Diagnosis Differential Diagnoses: The differential diagnosis associated with the presentation includes (ICH, CVA, ACS, PE, UTI, polysubstance use disorder, viral syndrome, metabolic encephalopathy) Admission/Observation Consideration of admission/observation: Escalation of care including admission/observation considered (Admitted as for course narrative) Consult Healthcare Provider Management of the patient was discussed with: Hospitalist and Consumer Affairs Specialist (Cardiology per course narrative) Lab Data MDM Lab Attestation statement: I reviewed the patient's lab results. (As per course narrative) 11/17/22 19:55 11/17/22 19:55 Labs: Lab Results 11/17/22 11/17/22 11/17/22 Range/Units 19:55 20:15 20:31 WBC 9.8 (4.8-10.8) X10*3/uL RBC 3.75 L (4.60-5.80) X10*6/uL Hgb 11.6 L (14.0-18.0) g/dl Hct 33.3 L (42.0-52.0) % MCV 88.8 (80.0-98.0) fL MCH 30.9 (27.0-33.0) pg MCHC 34.8 (31.0-36.0) g/dl RDW 12.5 (11.0-16.0) % Plt Count 231 (160-400) X10*3/uL MPV 9.4 (9.4-12.4) fL Immature Gran % (Auto) 0.3 (0.0-0.4) % Neut % (Auto) 81.8 H (45-73) % Lymph % (Auto) 9.3 L (20-40) % [place] % (Auto) 7.6 (2-11) % Eos % (Auto) 0.8 (0-4) % Baso % (Auto) 0.2 (0-2) % Lymph # (Auto) 0.9 L (1.2-4.9) X10*3/uL [place] # (Auto) 0.7 (0.1-1.2) X10*3/uL Eos # (Auto) 0.1 (0.0-0.4) X10*3/uL Baso # (Auto) 0.0 (0.0-0.2) X10*3/uL Abs Immat Gran (auto) 0.03 (0.00-0.03) X10*3/uL Absolute Neuts (auto) 8.0 (2.0-8.3) x10*3/uL Absolute Nucleated RBC 0.000 (0.0-0.012) X10*3/uL Nucleated RBC % (auto) 0.0 (0.0-0.2) /100WBC D-Dimer High Sensitivty NG/ML Hold Blue Top SEE NOTE Sodium 126 L (135-145) mmol/L Potassium 3.5 (3.3-5.1) mmol/L Chloride 97 (96-108) mmol/L Carbon Dioxide 18 L (22-29) mmol/L Anion Gap 15 (12-20) BUN 10 (9-16) mg/dL Creatinine 0.60 (0.5-1.4) mg/dL Estim Creat Clear Calc 114.6 Estimated GFR > 60 Random Glucose 109 (60-115) mg/dL Osmolality (281-305) mosm/kg Lactic Acid 2.1 H* (0.5-2.0) mmol/L Lactic Acid F/U @ 2Hr (0.5-2.0) mmol/L Calcium 8.6 D (8.4-10.2) mg/dL Total Bilirubin 1.0 (0.0-1.0) mg/dL AST 23 (5-37) U/L ALT 11 (0-40) U/L Alkaline Phosphatase 101 (39-117) U/L Ammonia 24 (13-55) umol/L Troponin I High Sens 92.6 H D (<3.5-35.0) ng/L Total Protein 6.6 (6.5-8.0) g/dL Albumin 3.9 (3.5-5.0) g/dL Urine Color Urine Appearance Urine pH (5.0-9.0) Ur Specific [place] (1.005-1.025) Urine Protein (Neg-Trace) mg/dL Urine Glucose (UA) (Negative) mg/dL Urine Ketones (Negative) mg/dL Urine Blood (Negative) Urine Nitrite (Negative) Ur Leukocyte Esterase (Negative) Urine Osmolality (373-1093) mosm/kg Ur Random Sodium mmol/L Urine Opiates Screen (Not Detect) Urine Fentanyl Screen (Not Detect) Ur Barbiturates Screen (Not Detect) Ur Phencyclidine Scrn (Not Detect) Ur Amphetamines Screen (Not Detect) U Benzodiazepines Scrn (Not Detect) Urine Cocaine Screen (Not Detect) U Marijuana (THC) Screen (Not Detect) Ethyl Alcohol 35 mg/dL COVID-19 ([facility]) (Negative) COVID-19 Clin Com Influenza Type A ([facility]) (Negative) Influenza Type B ([facility]) (Negative) Influenza A & B Note 11/17/22 11/17/22 11/17/22 Range/Units 21:23 21:24 22:11 WBC (4.8-10.8) X10*3/uL RBC (4.60-5.80) X10*6/uL Hgb (14.0-18.0) g/dl Hct (42.0-52.0) % MCV (80.0-98.0) fL MCH (27.0-33.0) pg MCHC (31.0-36.0) g/dl RDW (11.0-16.0) % Plt Count (160-400) X10*3/uL MPV (9.4-12.4) fL Immature Gran % (Auto) (0.0-0.4) % Neut % (Auto) (45-73) % Lymph % (Auto) (20-40) % [place] % (Auto) (2-11) % Eos % (Auto) (0-4) % Baso % (Auto) (0-2) % Lymph # (Auto) (1.2-4.9) X10*3/uL [place] # (Auto) (0.1-1.2) X10*3/uL Eos # (Auto) (0.0-0.4) X10*3/uL Baso # (Auto) (0.0-0.2) X10*3/uL Abs Immat Gran (auto) (0.00-0.03) X10*3/uL Absolute Neuts (auto) (2.0-8.3) x10*3/uL Absolute Nucleated RBC (0.0-0.012) X10*3/uL Nucleated RBC % (auto) (0.0-0.2) /100WBC D-Dimer High Sensitivty NG/ML Hold Blue Top Sodium (135-145) mmol/L Potassium (3.3-5.1) mmol/L Chloride (96-108) mmol/L Carbon Dioxide (22-29) mmol/L Anion Gap (12-20) BUN (9-16) mg/dL Creatinine (0.5-1.4) mg/dL Estim Creat Clear Calc Estimated GFR Random Glucose (60-115) mg/dL Osmolality 261 L (281-305) mosm/kg Lactic Acid (0.5-2.0) mmol/L Lactic Acid F/U @ 2Hr 0.9 (0.5-2.0) mmol/L Calcium (8.4-10.2) mg/dL Total Bilirubin (0.0-1.0) mg/dL AST (5-37) U/L ALT (0-40) U/L Alkaline Phosphatase (39-117) U/L Ammonia (13-55) umol/L Troponin I High Sens 189.4 H* D (<3.5-35.0) ng/L Total Protein (6.5-8.0) g/dL Albumin (3.5-5.0) g/dL Urine Color Yellow Urine Appearance Clear Urine pH 5.5 (5.0-9.0) Ur Specific [place] 1.010 (1.005-1.025) Urine Protein Negative (Neg-Trace) mg/dL Urine Glucose (UA) Negative (Negative) mg/dL Urine Ketones Negative (Negative) mg/dL Urine Blood Negative (Negative) Urine Nitrite Negative (Negative) Ur Leukocyte Esterase Negative (Negative) Urine Osmolality 349 L (373-1093) mosm/kg Ur Random Sodium 55.0 mmol/L Urine Opiates Screen Not Detected (Not Detect) Urine Fentanyl Screen Not Detected (Not Detect) Ur Barbiturates Screen Not Detected (Not Detect) Ur Phencyclidine Scrn Not Detected (Not Detect) Ur Amphetamines Screen Not Detected (Not Detect) U Benzodiazepines Scrn Not Detected (Not Detect) Urine Cocaine Screen Not Detected (Not Detect) U Marijuana (THC) Screen Not Detected (Not Detect) Ethyl Alcohol mg/dL COVID-19 ([facility]) (Negative) COVID-19 Clin Com Influenza Type A ([facility]) Negative (Negative) Influenza Type B ([facility]) Negative (Negative) Influenza A & B Note See Note 11/17/22 11/17/22 Range/Units 22:12 23:08 WBC (4.8-10.8) X10*3/uL RBC (4.60-5.80) X10*6/uL Hgb (14.0-18.0) g/dl Hct (42.0-52.0) % MCV (80.0-98.0) fL MCH (27.0-33.0) pg MCHC (31.0-36.0) g/dl RDW (11.0-16.0) % Plt Count (160-400) X10*3/uL MPV (9.4-12.4) fL Immature Gran % (Auto) (0.0-0.4) % Neut % (Auto) (45-73) % Lymph % (Auto) (20-40) % [place] % (Auto) (2-11) % Eos % (Auto) (0-4) % Baso % (Auto) (0-2) % Lymph # (Auto) (1.2-4.9) X10*3/uL [place] # (Auto) (0.1-1.2) X10*3/uL Eos # (Auto) (0.0-0.4) X10*3/uL Baso # (Auto) (0.0-0.2) X10*3/uL Abs Immat Gran (auto) (0.00-0.03) X10*3/uL Absolute Neuts (auto) (2.0-8.3) x10*3/uL Absolute Nucleated RBC (0.0-0.012) X10*3/uL Nucleated RBC % (auto) (0.0-0.2) /100WBC D-Dimer High Sensitivty 844 NG/ML Hold Blue Top Sodium (135-145) mmol/L Potassium (3.3-5.1) mmol/L Chloride (96-108) mmol/L Carbon Dioxide (22-29) mmol/L Anion Gap (12-20) BUN (9-16) mg/dL Creatinine (0.5-1.4) mg/dL Estim Creat Clear Calc Estimated GFR Random Glucose (60-115) mg/dL Osmolality (281-305) mosm/kg Lactic Acid (0.5-2.0) mmol/L Lactic Acid F/U @ 2Hr (0.5-2.0) mmol/L Calcium (8.4-10.2) mg/dL Total Bilirubin (0.0-1.0) mg/dL AST (5-37) U/L ALT (0-40) U/L Alkaline Phosphatase (39-117) U/L Ammonia (13-55) umol/L Troponin I High Sens (<3.5-35.0) ng/L Total Protein (6.5-8.0) g/dL Albumin (3.5-5.0) g/dL Urine Color Urine Appearance Urine pH (5.0-9.0) Ur Specific [place] (1.005-1.025) Urine Protein (Neg-Trace) mg/dL Urine Glucose (UA) (Negative) mg/dL Urine Ketones (Negative) mg/dL Urine Blood (Negative) Urine Nitrite (Negative) Ur Leukocyte Esterase (Negative) Urine Osmolality (373-1093) mosm/kg Ur Random Sodium mmol/L Urine Opiates Screen (Not Detect) Urine Fentanyl Screen (Not Detect) Ur Barbiturates Screen (Not Detect) Ur Phencyclidine Scrn (Not Detect) Ur Amphetamines Screen (Not Detect) U Benzodiazepines Scrn (Not Detect) Urine Cocaine Screen (Not Detect) U Marijuana (THC) Screen (Not Detect) Ethyl Alcohol mg/dL COVID-19 ([facility]Z) Negative (Negative) COVID-19 Clin Com See Note Influenza Type A ([facility]) (Negative) Influenza Type B ([facility]) (Negative) Influenza A & B Note Independent Interpretation I performed an independent interpretation of an: EKG (As per course narrative) Radiology Impression Discussion of test interpretation with radiology: I have reviewed the radiologist's reading. Radiologist Impression: CT/CT head/brain wo IV con IMPRESSION: No acute intracranial abnormality including hemorrhage, mass effect, hydrocephalus, or acute territorial edematous infarction. CT/CT angio chest PE protocol IMPRESSION: 1. No evidence of pulmonary emboli. 2. Pulmonary nodules measuring up to 6 mm in size in the right lower - the largest is new when compared to 05/05/2022. VTE: negative. Independent Historian Clinical information obtained from an independent historian. History obtained from or confirmed by: EMS Critical Care Time Critical Care Time Critical Care Time: Yes Total Critical Care Time: 40 Attestation: I personally attest to this critical care time spent taking care of the patient exclusive of all other billable procedures was approximately 40 minutes including initial evaluation of patient, ordering tests, x-ray interpretation, EKG interpretation, medical consultation, documentation, re-evaluation. Discharge Plan Discharge Clinical Impression: Hyponatremia, Alcohol abuse Patient Disposition: Admitted As Inpatient
--- NOTE | 2022-11-17 21:28 | PC.NURSE ---
this rn straight cath pt. 150ml of bright yellow urine noted. condom cath placed at this time.
[2022-11-17 23:10] VITALS: BP 166/78; PULSE 87; RESP 20; O2SAT 96
[2022-11-18] VITALS (8 sets, daily range): BP systolic 145–184; BP diastolic 64–127; PULSE 82–101; RESP 15–24; TEMP 36.3–36.9; O2SAT 94–99; BMI 26.1
--- NOTE | 2022-11-18 00:45 | PC.NURSE ---
pt iv fluids d/c at this time, pt received 100ml.
--- NOTE | 2022-11-18 01:08 | PM.IMHP ---
History of Present Illness Date of Service: 11/18/22 Chief Complaint: Lethargy and fall This is a 77-year-old male with pertinent history of essential hypertension, mixed hyperlipidemia, gastroesophageal reflux disease, alcohol use disorder who was brought to the emergency department via EMS for evaluation of fall and lethargy. As per EMS, in a and called 911. Patient is a poor historian, stated that he fell in the shower as he was weak. No loss of consciousness prior to the fall. Patient states he was screaming due to the fall. No rhythmic jerking movement of extremities. Patient denies fever, chills, shortness of breath, abdominal pain, changes in urinary or bowel habits. In the emergency department, patient's sodium was found to be low and troponin was found to be elevated Review of Systems Constitutional: Constitutional: Reports fatigue and Reports lethargy Cardiovascular: Cardiovascular: Reports no additional cardiovascular complaints Respiratory: Respiratory: Reports no additional respiratory complaints Gastrointestinal: Gastrointestinal: Reports no additional gastrointestinal complaints Genitourinary: Genitourinary: Reports no additional male genitourinary complaints Endocrine: Endocrine: Reports fatigue [facility] Medical History COVID-19 virus infection Diverticular disease Colon cancer Overweight (BMI 25.0-29.9) Hypertension Knee osteoarthritis GERD (gastroesophageal reflux disease) Hypercholesterolemia Alcohol abuse Prostate cancer Arthritis of knee Family History Mother No problems noted. Father No problems noted. Surgical History History of surgery H/O umbilical hernia repair H/O right hemicolectomy History of total right hip arthroplasty History of total right knee replacement History of total left knee replacement Social History Alcohol intake: never Patient Tobacco Use Status: Tobacco use Unknown Smoked in Last 30 Days: No Use of substances other than those prescribed or required for medical reasons: No Advance Directives: Yes Advance Directives on File: Yes Advance Directives Date on File: 11/10/21 Current occupational status: retired Current occupation: Right Handed Meds Allergies Allergy/AdvReac Type Severity Reaction Status Date / Time No Known Allergies Allergy Verified 11/17/22 19:45 [No Known Allergies*] Physical Exam Vital Signs and Narrative: Vital Signs: Last Vital Signs Temp 98.1 F 11/18/22 00:00 Pulse 82 11/18/22 00:00 Resp 18 11/18/22 00:00 BP 166/79 H 11/18/22 00:00 Pulse Ox 98 11/18/22 00:00 O2 Del Method Room Air 11/18/22 00:00 BMI result Body Mass Index 25.3 Middle-aged male lying in bed in no distress Neck supple, no JVD Regular rate and rhythm, S1-S2 heard Regular breath sounds bilaterally, no wheezing or crackles appreciated Abdomen soft nontender, no guarding, no rigidity Patient is awake, alert and oriented to place, person ; no focal motor deficit, conversational and following commands Psych: Normal mood No pedal edema Results Labs 11/17/22 19:55 11/17/22 19:55 Labs: Laboratory Results - last 24 hr 11/17/22 11/17/22 11/17/22 19:55 20:15 20:31 MCV 88.8 MCH 30.9 MCHC 34.8 RDW 12.5 Plt Count 231 MPV 9.4 Immature Gran % (Auto) 0.3 Neut % (Auto) 81.8 H Lymph % (Auto) 9.3 L [place] % (Auto) 7.6 Eos % (Auto) 0.8 Baso % (Auto) 0.2 Lymph # (Auto) 0.9 L [place] # (Auto) 0.7 Eos # (Auto) 0.1 Baso # (Auto) 0.0 Abs Immat Gran (auto) 0.03 Absolute Neuts (auto) 8.0 Absolute Nucleated RBC 0.000 Nucleated RBC % (auto) 0.0 D-Dimer High Sensitivty Hold Blue Top SEE NOTE Anion Gap 15 Estim Creat Clear Calc 114.6 Estimated GFR > 60 Random Glucose 109 Osmolality Lactic Acid 2.1 H* Lactic Acid F/U @ 2Hr Calcium 8.6 D Total Bilirubin 1.0 AST 23 ALT 11 Alkaline Phosphatase 101 Ammonia 24 Total Protein 6.6 Albumin 3.9 Urine Color Urine Appearance Urine pH Ur Specific [place] Urine Protein Urine Glucose (UA) Urine Ketones Urine Blood Urine Nitrite Ur Leukocyte Esterase Urine Osmolality Ur Random Sodium Urine Opiates Screen Urine Fentanyl Screen Ur Barbiturates Screen Ur Phencyclidine Scrn Ur Amphetamines Screen U Benzodiazepines Scrn Urine Cocaine Screen U Marijuana (THC) Screen Ethyl Alcohol 35 COVID-19 (HERNANDEZ) COVID-19 Clin Com Influenza Type A (SARAI) Influenza Type B (SARAI) Influenza A & B Note 11/17/22 11/17/22 11/17/22 21:23 21:24 22:11 MCV MCH MCHC RDW Plt Count MPV Immature Gran % (Auto) Neut % (Auto) Lymph % (Auto) [place] % (Auto) Eos % (Auto) Baso % (Auto) Lymph # (Auto) [place] # (Auto) Eos # (Auto) Baso # (Auto) Abs Immat Gran (auto) Absolute Neuts (auto) Absolute Nucleated RBC Nucleated RBC % (auto) D-Dimer High Sensitivty Hold Blue Top Anion Gap Estim Creat Clear Calc Estimated GFR Random Glucose Osmolality 261 L Lactic Acid Lactic Acid F/U @ 2Hr 0.9 Calcium Total Bilirubin AST ALT Alkaline Phosphatase Ammonia Total Protein Albumin Urine Color Yellow Urine Appearance Clear Urine pH 5.5 Ur Specific [place] 1.010 Urine Protein Negative Urine Glucose (UA) Negative Urine Ketones Negative Urine Blood Negative Urine Nitrite Negative Ur Leukocyte Esterase Negative Urine Osmolality 349 L Ur Random Sodium 55.0 Urine Opiates Screen Not Detected Urine Fentanyl Screen Not Detected Ur Barbiturates Screen Not Detected Ur Phencyclidine Scrn Not Detected Ur Amphetamines Screen Not Detected U Benzodiazepines Scrn Not Detected Urine Cocaine Screen Not Detected U Marijuana (THC) Screen Not Detected Ethyl Alcohol COVID-19 (HERNANDEZ) COVID-19 Clin Com Influenza Type A (SARAI) Negative Influenza Type B (SARAI) Negative Influenza A & B Note See Note 11/17/22 11/17/22 22:12 23:08 MCV MCH MCHC RDW Plt Count MPV Immature Gran % (Auto) Neut % (Auto) Lymph % (Auto) [place] % (Auto) Eos % (Auto) Baso % (Auto) Lymph # (Auto) [place] # (Auto) Eos # (Auto) Baso # (Auto) Abs Immat Gran (auto) Absolute Neuts (auto) Absolute Nucleated RBC Nucleated RBC % (auto) D-Dimer High Sensitivty 844 Hold Blue Top Anion Gap Estim Creat Clear Calc Estimated GFR Random Glucose Osmolality Lactic Acid Lactic Acid F/U @ 2Hr Calcium Total Bilirubin AST ALT Alkaline Phosphatase Ammonia Total Protein Albumin Urine Color Urine Appearance Urine pH Ur Specific [place] Urine Protein Urine Glucose (UA) Urine Ketones Urine Blood Urine Nitrite Ur Leukocyte Esterase Urine Osmolality Ur Random Sodium Urine Opiates Screen Urine Fentanyl Screen Ur Barbiturates Screen Ur Phencyclidine Scrn Ur Amphetamines Screen U Benzodiazepines Scrn Urine Cocaine Screen U Marijuana (THC) Screen Ethyl Alcohol COVID-19 (HERNANDEZ) Negative COVID-19 Clin Com See Note Influenza Type A (SARAI) Influenza Type B (SARAI) Influenza A & B Note Imaging Radiologist's Impressions: Impressions Head CT 11/17/22 21:32 IMPRESSION: No acute intracranial abnormality including hemorrhage, mass effect, hydrocephalus, or acute territorial edematous infarction. Chest CTA 11/18/22 00:25 IMPRESSION: 1. No evidence of pulmonary emboli. 2. Pulmonary nodules measuring up to 6 mm in size in the right lower - the largest is new when compared to 05/05/2022. VTE: negative. According to the UPDATED 2017 Fleischner Society recommendations, the advised follow-up imaging for multiple solid nodules measuring up to 6-8 mm is follow-up CT at 3 to 6 months. In high-risk patients, subsequent CT follow-up at 18 to 24 months is recommended. In low-risk patients, subsequent CT follow-up at 18 to 24 months is optional. Assessment and Plan (1) Hyponatremia: Status: Acute Plan This is a 77-year-old male with pertinent history of essential hypertension, mixed hyperlipidemia, gastroesophageal reflux disease, alcohol use disorder who was brought to the emergency department via EMS for evaluation of fall and lethargy. #. Moderate hyponatremia, due to SIADH. Will admit patient and place fluid restriction. Closely monitor sodium levels. #. Mechanical fall due to lethargy in the setting of above. Consulting Physical therapy to evaluate #. Alcohol use disorder. Initiating thiamine and folic acid. Monitor CIWA #. Elevated troponin. Cardiology was consulted from the ER, appreciate assistance. EKG without ischemic changes. Repeat troponin in a.m. Med rec pending DVT prophylaxis: Lovenox Full code Time Spent With Patient Time: Total time managing care of this patient today ____ minutes. Quality Stroke Does the patient have a stroke diagnosis?: No VTE Prior VTE?: No VTE Risk Level:: Medical - moderate - high VTE Device Contraindication: Treatment Not Indicated VTE Drug Contraindication: N/A - Med Ordered
--- NOTE | 2022-11-18 02:46 | PC.NURSE ---
pt removed condom cath. pt uses urinal with assitance.
[2022-11-18 06:53] LABS: Alanine Aminotransferase 14 U/L (0-40); Alkaline Phosphatase 104 U/L (39-117); Anion Gap 15 (12-20); Aspartate Amino Transferase 36 U/L (5-37); Bilirubin Total 1.7 mg/dL (0.0-1.0); Blood Urea Nitrogen 7 mg/dL (9-16); Carbon Dioxide 19 mmol/L (22-29); Chloride 100 mmol/L (96-108); Creatinine Clr Calc Pharmacy 112.7; Estimated Glomerular Filt Rate > 60; Glucose Random 117 mg/dL (60-115); Potassium 3.5 mmol/L (3.3-5.1); Sodium 130 mmol/L (135-145); Total Protein 6.7 g/dL (6.5-8.0)
--- NOTE | 2022-11-18 07:18 | PC.NURSE ---
Initial contact with pt. pt restless, yelling out, had urinated in the bed. bed changed, pt repositioned for comfort. assisted with urinal, no further urine output.
--- NOTE | 2022-11-18 08:26 | PM.EVENT ---
Documented by User: Nikkie Kunz NP 11/18/22 15:35 Event Note Date of Service: 11/18/22 Event Note: This is a 77-year-old male with pertinent history of essential hypertension, mixed hyperlipidemia, gastroesophageal reflux disease, alcohol use disorder who was brought to the emergency department via EMS for evaluation of fall and lethargy. Agitation, acute head ct neg for intracranial abnormality utox neg alcohol level 35 no signs of infections lorazepam for agitated outbursts follow mental status closely Moderate hyponatremia, due to SIADH. increased from 126-135 urine sodium 55, urine osmo 349 fluid restriction, 1 liter Mechanical fall due to lethargy unknown source of lethargy, ? alcohol intoxication no source of infection, neg ua, chest CTA neg for consolidation or PE Follow blood cx Physical therapy>rec STR Alcohol use disorder. Alcohol level 35 Initiating thiamine and folic acid. Monitor CIWA Elevated troponin. 189.4, 192.5 Cardiology consult pending EKG without ischemic changes. Hypertension Mildly elevated BP DVT prophylaxis: Lovenox Attending Dr. Ortez Full code called contact on record but no answer OBS Time Spent With Patient Time: Total time managing care of this patient today ____ minutes. Documented by User: Cruz Ortez MD 12/06/22 10:15 Event Note Date of Service: 12/06/22
--- NOTE | 2022-11-18 09:23 | MHC.CM.PN ---
CM ATTEMPTED TO MEET WITH PT WHO WAS SLEEPING ON APPROACH CM WAS ABLE TO WAKE PT HOWEVER HE WOULD FALL BACK TO SLEEP BEFORE A QUESTION COULD BE COMPLETED PT WAS ABLE TO STATE THAT HE LIVES ALONE AND HAD NO SERVICES HE SAYS HE HAS A WALKER THERE IS A HCP ON FILE PT UNABLE TO TELL T/W IF HE HAS HAD A HOSPITAL ADMISSION RECENTLY STR HAS BEEN RECOMMENDED, HOWEVER HE IS ON OBSERVATION STATUS CM WILL ATTEMPT TO GET MORE INFO WHEN PT IS LESS LETHARGIC OBSERVATION NOTICE WAS DELIVERED DCP TBD PENDING PTS PARTICIPATION IN PLANNING
--- NOTE | 2022-11-18 09:30 | PC.NURSE ---
Incontinent care provided. condom cath applied. pt repositioned for comfort.
--- NOTE | 2022-11-18 09:46 | PHA.MEDREC ---
Pharmacy Consult ? Medication Reconciliation Pharmacy has completed the medication reconciliation. PT CONFIRMS HE TAKES ONLY DAILY MULTI VITAMIN AND NO OTHER HOME MEDS
--- NOTE | 2022-11-18 11:00 | PC.NURSE ---
Pt had agitation outburst, physically pushing against staff to get out of bed, yelling/cursing, difficult to redirect. staff able to replace pt back in bed. attempted to assist pt with urinal but he did not void. TAYA clayton notified.
--- NOTE | 2022-11-18 13:41 | PM.CNCAR ---
History of Present Illness History of Present Illness Date of Service: 11/18/22 Requesting physician: Nikkie Kunz Chief complaint: lethargy and fall, +trop Narrative: 77-year-old gentleman who we have been consulted for elevated troponin level. He has background history of alcohol use and presented with mechanical fall. He is saying he tripped and fell in the bathroom. Denying chest pain or shortness of breath. ECG has no dynamic changes. Mildly elevated troponin levels. Blood pressure is elevated. He is saying his legs are very weak and they give way. He has also has hyponatremia and is being worked up for that. It appears he was not taking any medications at home. [facility] Past Medical History Medical History COVID-19 virus infection Diverticular disease Colon cancer Overweight (BMI 25.0-29.9) Hypertension Knee osteoarthritis GERD (gastroesophageal reflux disease) Hypercholesterolemia Alcohol abuse Prostate cancer Arthritis of knee Family History Family History Mother No problems noted. Father No problems noted. Surgical History Surgical History History of surgery H/O umbilical hernia repair H/O right hemicolectomy History of total right hip arthroplasty History of total right knee replacement History of total left knee replacement Social History Social History Alcohol intake: never Patient Tobacco Use Status: Tobacco use Unknown Smoked in Last 30 Days: No Use of substances other than those prescribed or required for medical reasons: No Advance Directives: Yes Advance Directives on File: Yes Advance Directives Date on File: 11/10/21 Nutrition Risks: No Nutritional Risk Current occupational status: retired Current occupation: Right Handed Meds Allergies Allergy/AdvReac Type Severity Reaction Status Date / Time No Known Allergies Allergy Verified 11/17/22 19:45 [No Known Allergies*] Active Medications: Current Medications Acetaminophen (Acetaminophen 325 Mg Tablet) 650 mg PO Q6H PRN PRN Reason: Pain, Mild (Pain Scale 1-3) Enoxaparin Sodium (Enoxaparin Sodium 40 Mg/0.4 Ml Syringe) 40 mg SUBCUT Q24H LORA Last Admin: 11/18/22 07:59 Dose: 40 mg Folic Acid (Folic Acid 1 Mg Tablet) 1 mg PO DAILY [facility] Last Admin: 11/18/22 07:59 Dose: 1 mg Lorazepam (Lorazepam 2 Mg/Ml Vial) 1 mg IVPUSH Q4H PRN PRN Reason: agitation Melatonin (Melatonin 3 Mg Tablet) 6 mg PO BEDTIME PRN PRN Reason: Insomnia Ondansetron HCl (Ondansetron Hcl 4 Mg/2 Ml Vial) 4 mg IVPUSH Q8H PRN PRN Reason: Nausea and Vomiting Sodium Chloride (0.9 % Sodium Chloride Flush 3 Ml Syringe) 3 ml IVFLUSH QSHIFT [facility] Last Admin: 11/18/22 07:12 Dose: Not Given Thiamine HCl (Thiamine Hcl 100 Mg Tablet) 100 mg PO DAILY [facility] Last Admin: 11/18/22 07:59 Dose: 100 mg Home Medications Medication Instructions Recorded Confirmed Last Taken Type multivitamin (Daily Multi-Vitamin 1 tab PO DAILY 11/18/22 11/18/22 11/17/22 History tablet) Physical Exam Vital Signs: Vital Signs: Last Vital Signs Temp 97.3 F 11/18/22 13:04 Pulse 91 11/18/22 13:04 Resp 15 11/18/22 13:04 BP 158/127 H 11/18/22 13:04 Pulse Ox 99 11/18/22 13:04 O2 Del Method Room Air 11/18/22 13:04 BMI result Body Mass Index 25.3 GENERAL APPEARANCE: Frail. NECK: no carotid bruit, no jugular venous distention. SKIN: no suspicious lesions, warm and dry. HEART: no murmurs, regular rate and rhythm. LUNGS: clear to auscultation bilaterally. ABDOMEN: soft, nontender. EXTREMITIES: no edema. PERIPHERAL PULSES: equal. NEUROLOGIC: No gross deficits, AAO X 3 Objective Labs and Meds 11/17/22 19:55 11/18/22 10:46 Lab results: Laboratory Results - last 24 hr 11/17/22 11/17/22 11/17/22 19:55 20:15 20:31 WBC 9.8 RBC 3.75 L Hgb 11.6 L Hct 33.3 L MCV 88.8 MCH 30.9 MCHC 34.8 RDW 12.5 Plt Count 231 MPV 9.4 Immature Gran % (Auto) 0.3 Neut % (Auto) 81.8 H Lymph % (Auto) 9.3 L [place] % (Auto) 7.6 Eos % (Auto) 0.8 Baso % (Auto) 0.2 Lymph # (Auto) 0.9 L [place] # (Auto) 0.7 Eos # (Auto) 0.1 Baso # (Auto) 0.0 Abs Immat Gran (auto) 0.03 Absolute Neuts (auto) 8.0 Absolute Nucleated RBC 0.000 Nucleated RBC % (auto) 0.0 Hold Purple Top D-Dimer High Sensitivty Hold Blue Top SEE NOTE Sodium 126 L Potassium 3.5 Chloride 97 Carbon Dioxide 18 L Anion Gap 15 BUN 10 Creatinine 0.60 Estim Creat Clear Calc 114.6 Estimated GFR > 60 Random Glucose 109 Osmolality Lactic Acid 2.1 H* Lactic Acid F/U @ 2Hr Calcium 8.6 D Total Bilirubin 1.0 AST 23 ALT 11 Alkaline Phosphatase 101 Ammonia 24 Troponin I High Sens 92.6 H D Total Protein 6.6 Albumin 3.9 Urine Color Urine Appearance Urine pH Ur Specific [place] Urine Protein Urine Glucose (UA) Urine Ketones Urine Blood Urine Nitrite Ur Leukocyte Esterase Urine Osmolality Ur Random Sodium Urine Opiates Screen Urine Fentanyl Screen Ur Barbiturates Screen Ur Phencyclidine Scrn Ur Amphetamines Screen U Benzodiazepines Scrn Urine Cocaine Screen U Marijuana (THC) Screen Ethyl Alcohol 35 COVID-19 (HERNANDEZ) COVID-19 Clin Com Influenza Type A (SARAI) Influenza Type B (SARAI) Influenza A & B Note 11/17/22 11/17/22 11/17/22 21:23 21:24 22:11 WBC RBC Hgb Hct MCV MCH MCHC RDW Plt Count MPV Immature Gran % (Auto) Neut % (Auto) Lymph % (Auto) [place] % (Auto) Eos % (Auto) Baso % (Auto) Lymph # (Auto) [place] # (Auto) Eos # (Auto) Baso # (Auto) Abs Immat Gran (auto) Absolute Neuts (auto) Absolute Nucleated RBC Nucleated RBC % (auto) Hold Purple Top D-Dimer High Sensitivty Hold Blue Top Sodium Potassium Chloride Carbon Dioxide Anion Gap BUN Creatinine Estim Creat Clear Calc Estimated GFR Random Glucose Osmolality 261 L Lactic Acid Lactic Acid F/U @ 2Hr 0.9 Calcium Total Bilirubin AST ALT Alkaline Phosphatase Ammonia Troponin I High Sens 189.4 H* D Total Protein Albumin Urine Color Yellow Urine Appearance Clear Urine pH 5.5 Ur Specific [place] 1.010 Urine Protein Negative Urine Glucose (UA) Negative Urine Ketones Negative Urine Blood Negative Urine Nitrite Negative Ur Leukocyte Esterase Negative Urine Osmolality 349 L Ur Random Sodium 55.0 Urine Opiates Screen Not Detected Urine Fentanyl Screen Not Detected Ur Barbiturates Screen Not Detected Ur Phencyclidine Scrn Not Detected Ur Amphetamines Screen Not Detected U Benzodiazepines Scrn Not Detected Urine Cocaine Screen Not Detected U Marijuana (THC) Screen Not Detected Ethyl Alcohol COVID-19 (HERNANDEZ) COVID-19 Clin Com Influenza Type A (SARAI) Negative Influenza Type B (SARAI) Negative Influenza A & B Note See Note 11/17/22 11/17/22 11/18/22 22:12 23:08 06:30 WBC RBC Hgb Hct MCV MCH MCHC RDW Plt Count MPV Immature Gran % (Auto) Neut % (Auto) Lymph % (Auto) [place] % (Auto) Eos % (Auto) Baso % (Auto) Lymph # (Auto) [place] # (Auto) Eos # (Auto) Baso # (Auto) Abs Immat Gran (auto) Absolute Neuts (auto) Absolute Nucleated RBC Nucleated RBC % (auto) Hold Purple Top SEE NOTE D-Dimer High Sensitivty 844 Hold Blue Top Sodium 130 L Potassium 3.5 Chloride 100 Carbon Dioxide 19 L Anion Gap 15 BUN 7 L Creatinine 0.61 Estim Creat Clear Calc 112.7 Estimated GFR > 60 Random Glucose 117 H Osmolality Lactic Acid Lactic Acid F/U @ 2Hr Calcium 9.0 Total Bilirubin 1.7 H AST 36 ALT 14 Alkaline Phosphatase 104 Ammonia Troponin I High Sens 192.5 H* Total Protein 6.7 Albumin 4.0 Urine Color Urine Appearance Urine pH Ur Specific [place] Urine Protein Urine Glucose (UA) Urine Ketones Urine Blood Urine Nitrite Ur Leukocyte Esterase Urine Osmolality Ur Random Sodium Urine Opiates Screen Urine Fentanyl Screen Ur Barbiturates Screen Ur Phencyclidine Scrn Ur Amphetamines Screen U Benzodiazepines Scrn Urine Cocaine Screen U Marijuana (THC) Screen Ethyl Alcohol COVID-19 (HERNANDEZ) Negative COVID-19 Clin Com See Note Influenza Type A (SARAI) Influenza Type B (SARAI) Influenza A & B Note 11/18/22 10:46 WBC RBC Hgb Hct MCV MCH MCHC RDW Plt Count MPV Immature Gran % (Auto) Neut % (Auto) Lymph % (Auto) [place] % (Auto) Eos % (Auto) Baso % (Auto) Lymph # (Auto) [place] # (Auto) Eos # (Auto) Baso # (Auto) Abs Immat Gran (auto) Absolute Neuts (auto) Absolute Nucleated RBC Nucleated RBC % (auto) Hold Purple Top D-Dimer High Sensitivty Hold Blue Top Sodium 135 Potassium Chloride Carbon Dioxide Anion Gap BUN Creatinine Estim Creat Clear Calc Estimated GFR Random Glucose Osmolality Lactic Acid Lactic Acid F/U @ 2Hr Calcium Total Bilirubin AST ALT Alkaline Phosphatase Ammonia Troponin I High Sens Total Protein Albumin Urine Color Urine Appearance Urine pH Ur Specific [place] Urine Protein Urine Glucose (UA) Urine Ketones Urine Blood Urine Nitrite Ur Leukocyte Esterase Urine Osmolality Ur Random Sodium Urine Opiates Screen Urine Fentanyl Screen Ur Barbiturates Screen Ur Phencyclidine Scrn Ur Amphetamines Screen U Benzodiazepines Scrn Urine Cocaine Screen U Marijuana (THC) Screen Ethyl Alcohol COVID-19 (HERNANDEZ) COVID-19 Clin Com Influenza Type A (SARAI) Influenza Type B (SARAI) Influenza A & B Note Imaging Radiologist's impression: Impressions Head CT 11/17/22 21:32 IMPRESSION: No acute intracranial abnormality including hemorrhage, mass effect, hydrocephalus, or acute territorial edematous infarction. Chest CTA 11/18/22 00:25 IMPRESSION: 1. No evidence of pulmonary emboli. 2. Pulmonary nodules measuring up to 6 mm in size in the right lower - the largest is new when compared to 05/05/2022. VTE: negative. According to the UPDATED 2017 Fleischner Society recommendations, the advised follow-up imaging for multiple solid nodules measuring up to 6-8 mm is follow-up CT at 3 to 6 months. In high-risk patients, subsequent CT follow-up at 18 to 24 months is recommended. In low-risk patients, subsequent CT follow-up at 18 to 24 months is optional. Assessment and Plan (1) Elevated troponin: Status: Acute (2) Hypertension: Status: Acute Plan 77-year-old male presenting with mechanical fall on background of alcohol use. Mildly elevated troponin levels. No chest pain or shortness of breath. No dynamic EKG changes. No need for anticoagulation. This is not ACS and likely a type 2 event due to elevated blood pressures. His blood pressure currently is 158/127. Please watch for alcohol withdrawal. Would recommend starting him on carvedilol 3.125 mg twice a day. Would avoid thiazide and diuretics currently because of hyponatremia. Will review the echocardiogram. Thank you for allowing me to participate in the care of your patient. Please feel free to contact me if you have any questions. Time Spent With Patient Time: Total time managing care of this patient today ____ minutes. Procedures Date of Service Date of Service: 11/18/22
--- NOTE | 2022-11-18 16:39 | PC.NURSE ---
Visitor at bedside. [facility] [phone] knows pt from community and helps coordinate his home health. alt contact Diallo [phone]
[2022-11-18 16:41] LABS: VBG Base Excess 1.7 mmol/L; VBG HCO3 25 mmol/L (22-26); VBG pCO2 38 mmHg; VBG pH 7.43 (7.32-7.43); VBG pO2 66 mmHg
[2022-11-18 16:43] LABS: Venous Blood Gas Refer to POC result
[2022-11-18] MEDS: ondansetron HCL 4 MG/2 ML VIAL IVPUSH (18:07)
[2022-11-18] MEDS: LORazepam 2 MG/ML VIAL 1 MG IVPUSH (19:12)
--- NOTE | 2022-11-18 19:29 | PC.NURSE ---
I assumed care of the pt at 1900. Pt woke up and attempted to get out of bed, yelling for Maik. pt was repositioned but still agitaqted and getting out of bed. IV ativan given PRN per APR. Pt is now resting in bed with a warm blanket.
--- NOTE | 2022-11-18 19:34 | MHC.EDTECH ---
This tech assumed care of patient at 1900, hourly rounds and vitals completed. Patient has a [place] Cath in place from previous shift,this tech emptied 700cc of urine output. Patient was cleaned and linen was changed and patient was repositioned. call marinelli within reach
--- NOTE | 2022-11-18 20:29 | PC.NURSE ---
Pt is resting quietly in bed at this time, pt has been assigned a room, waiting to give report at this time.
[2022-11-18] MEDS: OLANZapine 10 MG VIAL IM (21:18)
[2022-11-18] MEDS: 0.9 % Sodium Chloride Flush 3 ML SYRINGE IVFLUSH (21:57)
[2022-11-18] MEDS: carvediloL 3.125 MG TABLET PO (21:57)
[2022-11-19] MEDS: LORazepam 2 MG/ML VIAL 1 MG IVPUSH ×2 (02:02→12:21)
[2022-11-19 03:46] VITALS: PULSE 95
--- NOTE | 2022-11-19 07:00 | CA_ITS ---
Transthoracic Echocardiogram Patient (Last, First, Middle): Destin Gomez J Gender: Male Date of : 1945 Age: 77 Procedure Date: 11/19/2022 Procedure Type: Transthoracic Echocardiogram Location: [facility] [place] Height: 185.42 cm Weight: 89.81 kg BSA: 2.14 m2 Heart Rate: bpm BP: 142 / 65 mmHg Pathology Teacher: TO Referring MD: Nikkie Kunz NP Symptoms: elevated trop Study Quality: Technically Difficult, contrast used Conclusions: - Normal left ventricular cavity size. There is mildly increased left ventricular wall thickness. The left ventricular systolic function is hyperdynamic. The visually estimated ejection fraction is >70%. - There is mid LV obstruction. No obvious systolic anterior motion of the mitral valve. - Normal left ventricular cavity size. There is mildly increased left ventricular wall thickness. The left ventricular systolic function Findings Procedure Information Contrast agent, definity, is being given per protocol without apparent complications. The study quality is limited by the patients inability to tolerate the test. Left Ventricle Normal left ventricular cavity size. There is mildly increased left ventricular wall thickness. The left ventricular systolic function is hyperdynamic. The visually estimated ejection fraction is >70%. There is no evidence of regional wall motion abnormalities. Diastolic function is normal for age. There is severe basal asymmetric hypertrophy. There is mid LV obstruction. No obvious systolic anterior motion of the mitral valve. Right Ventricle Normal right ventricular cavity size and systolic function. Atria The left atrium is mildly dilated. Aortic Valve There is a normal trileaflet aortic valve. There is no aortic valve stenosis. There is no aortic valve regurgitation. Mitral Valve There is mild mitral annular calcification. There is no mitral valve regurgitation. There is no mitral valve stenosis. Pulmonic Valve The pulmonic valve is likely normal. There is no pulmonic valve regurgitation. Tricuspid Valve Normal tricuspid valve structure. There is no tricuspid valve regurgitation. Tricuspid regurgitation envelope is inadequate for calculation of right ventricular systolic pressure. Normal right atrial pressure. Great Vessels All visible segments of the aorta are normal in size. The visualized portions of the pulmonary artery and branches are normal. Venous The inferior vena cava is normal in size and collapses greater than 50% with inspiration. Pericardium/Pleural There is no evidence of pericardial effusion. Prior Study Comparison No prior study available for comparison. Measurements 2D Linear Measurements IVSd: 1.72 0.6-0.9/0.6-1.0 cm LVIDd: 4.30 3.9-5.3/4.2-5.9 cm LVIDd Index: 2.01 2.4-3.2/2.2-3.1 cm/m2 LVIDs: 2.60 2.0-3.6 cm LVPWd: 1.28 0.7-1.1 cm LA Diam: 3.70 2.7-3.8/3.0-4.0 cm LAIDs Index: 1.73 1.5-2.3 cm/m2 LV Mass: 321.89 67-162/88-224 g LV Mass Index: 150.42 43-95/49-115 g/m2 LVOT Diam: 2.20 3.0+(-)1.3 cm 2D Systolic Function EF 4C: 66.80 >55% Mitral Valve MV VTI: 0.19 MV Pk Bernardino: 0.80 MV Mn Bernardino: 0.54 MV Pk Grad: 3.00 MV Mn Grad: 1.00 MV Pk E: 0.46 MV PK A: 0.70 MV Decel Time: 200.00 E/A: 0.70 E'Lateral: 5.33 E'Medial: 5.22 E/E' Med: 8.80 E/E' Lat: 8.60 PHT: 59.00 MVA PHT: 3.73 MVA Continuity: 5.02 Decel Calvert: 2.29 Aortic Valve AoV Pk Bernardino: 1.54 AoV Mn Bernardino: 1.11 AoV VTI: 0.29 AoV Pk Grad: 9.00 Aov Mn Grad: 5.00 NICOLAS Cont.VTI: 3.19 LVOT LVOT Pk Bernardino: 1.44 LVOT Mn Bernardino: 0.85 LVOT VTI: 0.25 LVOT Pk Grad: 8.00 LVOT Mn Grad: 4.00 LVOT Diam: 2.20 LVOT Area: 3.80 Diastolic Function MV Pk E: 0.46 MV Pk A: 0.70 E/A: 0.70 E'Medial: 5.22 E/E' Med: 8.80 E' Laterial: 5.33 E/E' Lat: 8.60 Tricuspid Valve RA Press: 3.00 Great Vessels Aorta Sinus of Valsalva: 3.45 2.0-3.5 cm Ao Asc: 3.00 2.1-3.4 cm Updated in Other Vendor System with Status of Final Brad Streeter MD electronically signed on 11/19/2022 7:09:47 PM with status of Final
[2022-11-19 07:06] VITALS: BP 142/65; PULSE 83; RESP 20; TEMP 37.2; O2SAT 95
[2022-11-19 08:13] LABS: Anion Gap 11 (12-20); Blood Urea Nitrogen 10 mg/dL (9-16); Calcium 9.1 mg/dL (8.4-10.2); Carbon Dioxide 24 mmol/L (22-29); Chloride 106 mmol/L (96-108); Creatinine Clr Calc Pharmacy 107.5; Estimated Glomerular Filt Rate > 60; Glucose Random 115 mg/dL (60-115); Potassium 3.6 mmol/L (3.3-5.1); Sodium 137 mmol/L (135-145)
[2022-11-19 08:14] LABS: Troponin-I High Sensitivity 99.5 ng/L (<3.5-35.0)
[2022-11-19] MEDS: 0.9 % Sodium Chloride Flush 3 ML SYRINGE IVFLUSH ×2 (09:53→16:42)
[2022-11-19] MEDS: Thiamine HCL 100 MG TABLET PO (09:55)
[2022-11-19] MEDS: Folic Acid 1 MG TABLET PO (09:55)
[2022-11-19] MEDS: carvediloL 3.125 MG TABLET PO (09:55)
[2022-11-19] MEDS: Enoxaparin Sodium 40 MG/0.4 ML SYRINGE SUBCUT (09:55)
[2022-11-19] MEDS: Nystatin Ointment 15 GM TUBE 1 APPL TOPICAL (10:29)
[2022-11-19 11:27] VITALS: BP 112/60; PULSE 73; RESP 20; TEMP 36.6; O2SAT 94
[2022-11-19 14:17] LABS: ABG Base Excess 4.1 mmol/L; ABG HCO3 29 mmol/L (22-26); ABG pCO2 44 mmHg (32-45); ABG pH 7.42 (7.35-7.45); ABG pO2 37 mmHg (83-108)
[2022-11-19] MEDS: Lactated Ringers 1,000 ML 75 ML IVCONT (14:35)
[2022-11-19 15:36] VITALS: BP 134/61; PULSE 68; RESP 20; TEMP 36.5; O2SAT 97
--- NOTE | 2022-11-19 15:42 | HO.PM.IMPN ---
Subjective Subjective Date of Service: 11/19/22 Interval History: seen and examined this morning follow up for elevated trops, encephalopathy patient difficult to arouse, unable to obtain any ROS or history Review of Systems Review of Systems: Yes all other systems are reviewed and are negative Physical Exam Vital Signs: Vital Signs: Last Vital Signs Temp 97.7 F 11/19/22 15:36 Pulse 68 11/19/22 15:36 Resp 20 11/19/22 15:36 BP 134/61 11/19/22 15:36 Pulse Ox 97 11/19/22 15:36 O2 Del Method Room Air 11/19/22 15:36 BMI result Body Mass Index 26.1 Const: Other: lethargic, appears comfortable, breathing easy, NAD responds to painful stimuli and states i am resting and then falls back asleep General: lethargic Nutritional Appearance: average body habitus Orientation/consciousness: lethargic Cardio: Rate: regular rate GI: Inspection: No distended Palpation (GI): Soft to palpation Neuro: Other: was able to wiggle toes and move upper extremities when asked no gross focal deficits appreciated but difficult to obtain full neuro exam Objective Data Active Medications Acetaminophen (Acetaminophen 325 Mg Tablet) 650 mg PO Q6H PRN PRN Reason: Pain, Mild (Pain Scale 1-3) Carvedilol (Carvedilol 3.125 Mg Tablet) 3.125 mg PO BID [facility]; Protocol Last Admin: 11/19/22 09:55 Dose: 3.125 mg Documented By: TERRY Enoxaparin Sodium (Enoxaparin Sodium 40 Mg/0.4 Ml Syringe) 40 mg SUBCUT Q24H [facility] Last Admin: 11/19/22 09:55 Dose: 40 mg Documented By: TERRY Folic Acid (Folic Acid 1 Mg Tablet) 1 mg PO DAILY [facility] Last Admin: 11/19/22 09:55 Dose: 1 mg Documented By: TERRY Lactated Ringer's (Lr) 1,000 mls @ 75 mls/hr IVCONT .[id number] [facility] Last Admin: 11/19/22 14:35 Dose: 75 mls/hr Documented By: TERRY Melatonin (Melatonin 3 Mg Tablet) 6 mg PO BEDTIME PRN PRN Reason: Insomnia Nystatin (Nystatin Ointment 15 Gm Tube) 1 appl TOPICAL BID [facility]; Protocol Last Admin: 11/19/22 10:29 Dose: 1 appl Documented By: TERRY Ondansetron HCl (Ondansetron Hcl 4 Mg/2 Ml Vial) 4 mg IVPUSH Q8H PRN PRN Reason: Nausea and Vomiting Last Admin: 11/18/22 18:07 Dose: 4 mg Documented By: SYLVESTER Sodium Chloride (0.9 % Sodium Chloride Flush 3 Ml Syringe) 3 ml IVFLUSH QSHIFT [facility] Last Admin: 11/19/22 09:53 Dose: 3 ml Documented By: TERRY Thiamine HCl (Thiamine Hcl 100 Mg Tablet) 100 mg PO DAILY [facility] Last Admin: 11/19/22 09:55 Dose: 100 mg Documented By: TERRY Labs 11/17/22 19:55 11/19/22 07:13 Labs: Laboratory Results - last 24 hr 11/18/22 11/18/22 11/19/22 16:34 16:35 07:13 Hold Purple Top SEE NOTE O2 Saturation ABG pH at Pt Temp ABG pCO2 at Pt Temp ABG pO2 at Pt Temp ABG HCO3 ABG Base Excess (Actual) VBG pH 7.43 VBG pCO2 38 VBG pO2 66 VBG HCO3 25 VBG O2 Saturation 92.0 VBG Base Excess 1.7 Anion Gap 11 L Estim Creat Clear Calc 107.5 Estimated GFR > 60 Random Glucose 115 Calcium 9.1 Total Creatine Kinase 940 H 668 H 11/19/22 14:12 Hold Purple Top O2 Saturation 64.0 ABG pH at Pt Temp 7.42 ABG pCO2 at Pt Temp 44 ABG pO2 at Pt Temp 37 L* ABG HCO3 29 H ABG Base Excess (Actual) 4.1 VBG pH VBG pCO2 VBG pO2 VBG HCO3 VBG O2 Saturation VBG Base Excess Anion Gap Estim Creat Clear Calc Estimated GFR Random Glucose Calcium Total Creatine Kinase Microbiology Microbiology Results: Microbiology 11/17/22 19:55 Blood Culture - Preliminary Blood - Venous No growth after 24 hours. 11/17/22 19:55 Blood Culture - Preliminary Blood - Venous No growth after 24 hours. Assessment and Plan (1) Hyponatremia: Status: Acute (2) Elevated troponin: Status: Acute Plan This is a 77-year-old male with pertinent history of essential hypertension, mixed hyperlipidemia, gastroesophageal reflux disease, alcohol use disorder who was brought to the emergency department via EMS for evaluation of fall and lethargy with episodes of agitation Agitation, acute head ct neg for intracranial abnormality utox neg alcohol level 35 but no hemodynamic instability to suggest alcohol withdrawal at this time no signs of infection initially treated with prn ativan, and zyprexa, patient sedated, will hold for now and obtain psych consult for assistance follow mental status closely metabolic encephalopathy ?r/t sedating medications ammonia negative, abg without co2 retention, renal function normal aspiration precautions, will make NPO until more awake to safely take po Moderate hyponatremia, due to SIADH urine sodium 55, urine osmo 349 sodium 137 this am fluid restriction, 1 liter Mechanical fall due to lethargy unknown source of lethargy, ? alcohol intoxication no source of infection, neg ua, chest CTA neg for consolidation or PE Follow blood cx Physical therapy>rec STR Alcohol use disorder. Alcohol level 35 Initiating thiamine and folic acid. Monitor CIWA Elevated troponin. 189.4, 192.5, trending down to 99.5 seen by cardiology, Type 2 event due to elevated blood pressure started on carvedilol echo pending Hypertension BP improved continue coreg when able to take po DVT prophylaxis: Lovenox Attending Dr. Ortez Full code patient requires ongoing inpatient stay for management of agitation/lethargy Time Spent With Patient Time: Total time managing care of this patient today ____ minutes. Quality Stroke Does the patient have a stroke diagnosis?: No VTE Prior VTE?: No VTE Risk Level:: Medical - moderate - high VTE Device Contraindication: Treatment Not Indicated VTE Drug Contraindication: N/A - Med Ordered
[2022-11-19 19:55] VITALS: BP 136/65; PULSE 72; RESP 20; TEMP 36.7; O2SAT 97
[2022-11-19 23:14] VITALS: BP 124/80; PULSE 80; RESP 20; TEMP 37.1; O2SAT 97
[2022-11-20] VITALS (7 sets, daily range): BP systolic 136–157; BP diastolic 68–102; PULSE 69–97; RESP 18–20; TEMP 36.3–37.2; O2SAT 95–98
[2022-11-20] MEDS: Lactated Ringers 1,000 ML 75 ML IVCONT ×2 (04:07→12:45)
[2022-11-20 06:56] LABS: Hematocrit 35.1 % (42.0-52.0); Hemoglobin 11.6 g/dl (14.0-18.0); Mean Corpuscular Hemoglobin 30.5 pg (27.0-33.0); Mean Corpuscular Volume 92.4 fL (80.0-98.0); Mean Platelet Volume 9.7 fL (9.4-12.4); Platelet Count 227 X10*3/uL (160-400)
[2022-11-20 07:14] LABS: Anion Gap 13 (12-20); Blood Urea Nitrogen 11 mg/dL (9-16); Calcium 8.6 mg/dL (8.4-10.2); Carbon Dioxide 23 mmol/L (22-29); Chloride 104 mmol/L (96-108); Creatinine Clr Calc Pharmacy 116.6; Estimated Glomerular Filt Rate > 60; Glucose Random 98 mg/dL (60-115); Potassium 3.5 mmol/L (3.3-5.1); Sodium 136 mmol/L (135-145)
--- NOTE | 2022-11-20 09:09 | PC.NURSE ---
Morning meds held per MD awaiting swallow evaluation. Patient NPO at this time.
[2022-11-20] MEDS: Nystatin Ointment 15 GM TUBE 1 APPL TOPICAL ×2 (09:29→20:52)
[2022-11-20] MEDS: Enoxaparin Sodium 40 MG/0.4 ML SYRINGE SUBCUT (09:29)
--- NOTE | 2022-11-20 10:28 | P.CDIM_ITS ---
PROVIDER RESPONSE TEXT: To clarify, the appropriate diagnosis supported by the clinical indicators: Acute QUERY TEXT: PHYSICIAN'S DOCUMENTATION REQUEST Date of Query: 11/20/2022 07:56 AM EDT Patient Name: Destin Gomez Admit Date: 11/18/2022 Dear Jessica Caro, A review of the medical record indicates additional documentation may be needed. Please review below and update the documentation accordingly. Clinical Indicators: ED 11/17 - Course: Lactic acidosis of 2.1 Clarify which of the following accurately represents the acuity of the Lactic acidosis: Possible options might include: Acute Acute on chronic Other (explain)Clinically unable to determine (explain)Thank you, Ashwini Dalal, CCS, CDIS Use of terms such as suspected, likely, concern for, or probable (associated with a specific diagnosi s that is being evaluated, monitored, or treated as if it exists) are acceptable and can be coded in the inpatient se tting, when documented at the time of discharge. Please use your independent medical judgment in providing your response. THIS QUERY IS PART OF THE PERMANENT MEDICAL RECORD
--- NOTE | 2022-11-20 10:28 | P.PNIM_ITS ---
Subjective Subjective Date of Service: 11/20/22 Interval History: seen and examined this morning follow up for agitation,lethargy did not get meds for agitation overnight more awake today, able to answer most questions, following commands; knows his name and that he is at [facility]. no specific complaints Review of Systems Review of Systems: Yes all other systems are reviewed and are negative Constitutional Constitutional: Denies chills and Denies fever(s) Cardiovascular Cardiovascular: Denies chest pain, Denies palpitations and Denies dyspnea Respiratory Respiratory: Denies cough and Denies dyspnea Gastrointestinal Gastrointestinal: Denies abdominal pain, Denies nausea and Denies vomiting Endocrine Endocrine: Denies palpitations Physical Exam 2 Vital Signs: Vital Signs: Last Vital Signs Temp 98.4 F 11/20/22 07:47 Pulse 69 11/20/22 07:47 Resp 18 11/20/22 07:47 BP 138/68 11/20/22 07:47 Pulse Ox 95 11/20/22 07:47 O2 Del Method Room Air 11/20/22 07:47 BMI result Body Mass Index 26.1 Objective Data Active Medications Acetaminophen (Acetaminophen 325 Mg Tablet) 650 mg PO Q6H PRN PRN Reason: Pain, Mild (Pain Scale 1-3) Carvedilol (Carvedilol 3.125 Mg Tablet) 3.125 mg PO BID [facility]; Protocol Last Admin: 11/20/22 09:09 Dose: Not Given Documented By: ADEIL Non-Admin Reason: Hold per Enoxaparin Sodium (Enoxaparin Sodium 40 Mg/0.4 Ml Syringe) 40 mg SUBCUT Q24H [facility] Last Admin: 11/20/22 09:29 Dose: 40 mg Documented By: ADIEL Folic Acid (Folic Acid 1 Mg Tablet) 1 mg PO DAILY [facility] Last Admin: 11/20/22 09:09 Dose: Not Given Documented By: ADIEL Non-Admin Reason: Hold per Lactated Ringer's (Lr) 1,000 mls @ 75 mls/hr IVCONT .[id number] [facility] Last Admin: 11/20/22 04:07 Dose: 75 mls/hr Documented By: LSEIA Melatonin (Melatonin 3 Mg Tablet) 6 mg PO BEDTIME PRN PRN Reason: Insomnia Nystatin (Nystatin Ointment 15 Gm Tube) 1 appl TOPICAL BID [facility]; Protocol Last Admin: 11/20/22 09:29 Dose: 1 appl Documented By: ADIEL Ondansetron HCl (Ondansetron Hcl 4 Mg/2 Ml Vial) 4 mg IVPUSH Q8H PRN PRN Reason: Nausea and Vomiting Last Admin: 11/18/22 18:07 Dose: 4 mg Documented By: SYLVESTER Sodium Chloride (0.9 % Sodium Chloride Flush 3 Ml Syringe) 3 ml IVFLUSH QSHIFT [facility] Last Admin: 11/20/22 09:08 Dose: Not Given Documented By: ADIEL Non-Admin Reason: IV Running Thiamine HCl (Thiamine Hcl 100 Mg Tablet) 100 mg PO DAILY [facility] Last Admin: 11/20/22 09:09 Dose: Not Given Documented By: ADIEL Non-Admin Reason: Hold Per MD Labs 11/20/22 06:02 11/20/22 06:02 Labs: Laboratory Results - last 24 hr 11/19/22 11/20/22 14:12 06:02 MCV 92.4 MCH 30.5 MCHC 33.0 RDW 13.0 Plt Count 227 MPV 9.7 Absolute Nucleated RBC 0.000 Nucleated RBC % (auto) 0.0 O2 Saturation 64.0 ABG pH at Pt Temp 7.42 ABG pCO2 at Pt Temp 44 ABG pO2 at Pt Temp 37 L* ABG HCO3 29 H ABG Base Excess (Actual) 4.1 Anion Gap 13 Estim Creat Clear Calc 116.6 Estimated GFR > 60 Random Glucose 98 Calcium 8.6 Microbiology Microbiology Results: Microbiology 11/17/22 19:55 Blood Culture - Preliminary Blood - Venous No growth after 48 hours. 11/17/22 19:55 Blood Culture - Preliminary Blood - Venous No growth after 48 hours. Assessment and Plan (1) Elevated troponin: Status: Acute (2) Encephalopathy: Status: Acute Plan This is a 77-year-old male with pertinent history of essential hypertension, mixed hyperlipidemia, gastroesophageal reflux disease, alcohol use disorder who was brought to the emergency department via EMS for evaluation of fall and lethargy with episodes of agitation metabolic encephalopathy with periods of agitation did not receive any sedating meds overnight - more alert and clear this morning head CT negative for acute change, utox negative. alcohol level 35 on admission but no hemodynamic instability to suggest alcohol withdrawal at this time ammonia negative, abg without co2 retention, renal function normal remains afebrile, no leukocytes, no signs of infection UA, CXR, CTA negative initially treated with prn ativan, and zyprexa, but patient became sedated, all sedating meds stopped psych consult pending neuro consult pending follow mental status closely aspiration precautions, NPO, speech eval today Moderate hyponatremia, due to SIADH sodium normalized fluid restriction, 1 liter Mechanical fall due to lethargy unknown source of lethargy, ? alcohol intoxication no source of infection, neg ua, chest CTA neg for consolidation or PE Follow blood cx Physical therapy>rec STR Alcohol use disorder. Alcohol level 35 on admission states he drinks 5 beers daily, unclear if this is accurate continue thiamine and folic acid. do not think agitation is related to alcohol withdrawal Monitor CIWA Elevated troponin. 189.4, 192.5, trending down to 99.5 seen by cardiology, Type 2 event due to elevated blood pressure started on carvedilol echo -no wma, preserved EF acute lactic acidosis not related to sepsis resolved pulmonary nodule seen on CTA recommend outpatient followup imaging Hypertension BP improved continue coreg when able to take po DVT prophylaxis: Lovemaddiex Attending Dr. Gilliland Full code attempted to call HCP and friend Raul yesterday and today, no answer, no mailbox to leave message patient requires ongoing inpatient stay for management of agitation/lethargy Time Spent With Patient Time: Total time managing care of this patient today ____ minutes. Quality Stroke Does the patient have a stroke diagnosis?: No VTE Prior VTE?: No VTE Risk Level:: Medical - moderate - high VTE Device Contraindication: Treatment Not Indicated VTE Drug Contraindication: N/A - Med Ordered
--- NOTE | 2022-11-20 10:54 | PM.NEUROCN ---
History of Present Illness Data of Consult Service Date: 11/20/22 Primary Care Provider: Jamar England MD HPI Reason for consult: Encephalopathy 77 years old man who was brought to hospital with confusion generalized weakness while not able to describe what had happened. There was no history of any recent fall or trauma or seizure. There was no history of any recent cold or flu-like illness. There was no documentation of any new drugs. Review of Systems Review of Systems: As per HPI. [facility] Past Medical History Medical History COVID-19 virus infection Diverticular disease Colon cancer Overweight (BMI 25.0-29.9) Hypertension Knee osteoarthritis GERD (gastroesophageal reflux disease) Hypercholesterolemia Alcohol abuse Prostate cancer Arthritis of knee Family History Family History Mother No problems noted. Father No problems noted. Surgical History Surgical History History of surgery H/O umbilical hernia repair H/O right hemicolectomy History of total right hip arthroplasty History of total right knee replacement History of total left knee replacement Social History Social History Household Members: Unknown / Unable to assess Housing: Unknown / Unable to assess Do you presently have visiting nurse or other home services: No Alcohol intake: never Patient Tobacco Use Status: Tobacco use Unknown Smoked in Last 30 Days: No Use of substances other than those prescribed or required for medical reasons: No Currently Displaying Signs/Symptoms of Drug Intoxication Withdrawal: No Advance Directives: Yes Advance Directives on File: Yes Advance Directives Date on File: 11/10/21 Do you have thoughts of harming others: None Do you have a plan to hurt others: No Plan Nutrition Risks: No Nutritional Risk Current occupational status: retired Current occupation: Right Handed Meds Allergies Allergy/AdvReac Type Severity Reaction Status Date / Time No Known Allergies Allergy Verified 11/17/22 19:45 [No Known Allergies*] Active Medications: Current Medications Acetaminophen (Acetaminophen 325 Mg Tablet) 650 mg PO Q6H PRN PRN Reason: Pain, Mild (Pain Scale 1-3) Carvedilol (Carvedilol 3.125 Mg Tablet) 3.125 mg PO BID [facility]; Protocol Last Admin: 11/20/22 09:09 Dose: Not Given Enoxaparin Sodium (Enoxaparin Sodium 40 Mg/0.4 Ml Syringe) 40 mg SUBCUT Q24H [facility] Last Admin: 11/20/22 09:29 Dose: 40 mg Folic Acid (Folic Acid 1 Mg Tablet) 1 mg PO DAILY [facility] Last Admin: 11/20/22 09:09 Dose: Not Given Lactated Ringer's (Lr) 1,000 mls @ 75 mls/hr IVCONT .[id number] [facility] Last Admin: 11/20/22 04:07 Dose: 75 mls/hr Melatonin (Melatonin 3 Mg Tablet) 6 mg PO BEDTIME PRN PRN Reason: Insomnia Nystatin (Nystatin Ointment 15 Gm Tube) 1 appl TOPICAL BID [facility]; Protocol Last Admin: 11/20/22 09:29 Dose: 1 appl Ondansetron HCl (Ondansetron Hcl 4 Mg/2 Ml Vial) 4 mg IVPUSH Q8H PRN PRN Reason: Nausea and Vomiting Last Admin: 11/18/22 18:07 Dose: 4 mg Sodium Chloride (0.9 % Sodium Chloride Flush 3 Ml Syringe) 3 ml IVFLUSH QSHIFT [facility] Last Admin: 11/20/22 09:08 Dose: Not Given Thiamine HCl (Thiamine Hcl 100 Mg Tablet) 100 mg PO DAILY [facility] Last Admin: 11/20/22 09:09 Dose: Not Given Home Medications Medication Instructions Recorded Confirmed Last Taken Type multivitamin (Daily Multi-Vitamin 1 tab PO DAILY 11/18/22 11/18/22 11/17/22 History tablet) Physical Exam Vital Signs: Vital Signs: Last Vital Signs Temp 98.4 F 11/20/22 07:47 Pulse 69 11/20/22 07:47 Resp 18 11/20/22 07:47 BP 138/68 11/20/22 07:47 Pulse Ox 95 11/20/22 07:47 O2 Del Method Room Air 11/20/22 07:47 BMI result Body Mass Index 26.1 Neuro: Other: He is alert and awake looking around but confused. When I arrived, he he had pulled is gown up to his neck and rest of his body was naked. There was no obvious abnormal posturing or tremor or dyskinesia. He was following simple commands. He knew where he was but could not tell me how long he has been here. He knew that he was wet and was asking for help. Face was symmetrical. Visual healy are full. There was no obvious asterisks. Plantars were flexor. Results Labs 11/20/22 06:02 11/20/22 06:02 Labs: Short CBC 11/20/22 Range/Units 06:02 WBC 7.0 (4.8-10.8) X10*3/uL Hgb 11.6 L (14.0-18.0) g/dl Hct 35.1 L (42.0-52.0) % Plt Count 227 (160-400) X10*3/uL BMP 11/20/22 06:02 Sodium 136 Potassium 3.5 Chloride 104 Carbon Dioxide 23 BUN 11 Creatinine 0.[address] revealed moderately severe diffuse cerebral and cerebellar central and cortical atrophy. Microbiology Microbiology Results: Microbiology 11/17/22 19:55 Blood - Venous Blood Culture - Preliminary No growth after 48 hours. 11/17/22 19:55 Blood - Venous Blood Culture - Preliminary No growth after 48 hours. Assessment and Plan (1) Encephalopathy: Status: Acute 77 years old man with nonspecific encephalopathy with head CT revealing significant brain atrophy either from etiologies causing degenerative disease or due to alcohol abuse or the combination. This acute encephalopathy did not have any obvious etiology. Common infection should be ruled out. Potentially, the could be other causes such as head and malignancy. Brain atrophy severe enough to cause moderate to severe dementia. Time Spent With Patient Time: Total time managing care of this patient today ____ minutes. Procedures Date of Service Date of Service: 11/20/22
--- NOTE | 2022-11-20 11:29 | MHC.SL.SWA ---
Speech Pathologist Impression: Risk of aspiration, oral phase dysphagia Risk of Aspiration Due to: Lethargy Dysphasia Diet Status: UPGRADE to NDD2/thin Liquid Consistency and Strategies for Safe Swallow: Liquid Intake Recommendation: Thin Liquid Intake Strategies: Small Sips No Straws Solid Food Consistency: Dietary Recommendations: Grnd/Mech Altered (NDD2) Additional Modifications to Solid Foods: Recommend UPGRADE from NPO, START on GROUND/MECH ALTERED (NDD2) solids moistened and softened with sauces/gravies, THIN liquids, pills WHOLE or CRUSHED in PUREE depending on pt's tolerance. Pt to have total supervision during PO intake, ensure aspiration precautions. Check oral cavity for pocketing or increased residuals. Pt to alternate sips/bites, dry swallow between bites to promote oral clearance. Oral Medication Intake: Crushed with Puree Please contact the pharmacy regarding appropriate crushable or liquid drug formulations that are available whenever modified delivery is recommended. Compensatory Strategies and Precautions to be Taken for Safe Swallow: Sitting Upright (90 deg) Double Swallow No Straw Liquids from Cup Liquids from Spoon Small Bites and Sips Alternate Liquids/Solids Rate of Ingestion Change Oral Check Avoid Specific Foods Supervision While Eating and Drinking for Safe Swallow: Total Supervision (1:1) Foods to Avoid: Sticky, dry, or hard to chew solids; mixed textures Swallowing Recommended Treatments: Compens. Strategy Educat. Recommendation for Speech: Inpatient Speech Therapy Comment: PROSTHETIC DENTIST to f/u 1x Ash Handler Clinican/Clinical Fellow: No Supervisory Statement: I have reviewed and agree with the student/clinical fellow's documentation: N/A Speech Language Pathologist: Mayelin Segura M.A., CCC-PROSTHETIC DENTIST
[2022-11-20 13:28] LABS: TSH reflex Free T4 0.71 uIU/mL (0.32-4.0)
--- NOTE | 2022-11-20 13:28 | MHC.CM.PN ---
Addendum entered by Melodie Owen RN 11/20/22 14:18: This CM spoke with HCP. HCP is agreeable to plan. Original Note: EMR reviewed. Per MD rounds pt not medically cleared for DC at this time. PT is recommending STR, bed offer [facility]. CM attempted to meet with patient to discuss. However, patient falling asleep during conversation. Will approach when more alert. Attempted to contact HCP/friend Raul to discuss, unable to leave message. CM will contine to follow.
[2022-11-20 13:42] LABS: Vitamin B12 308 pg/mL (200-900)
[2022-11-20] MEDS: Melatonin 3 MG TABLET 6 MG PO (20:51)
[2022-11-20] MEDS: carvediloL 3.125 MG TABLET PO (20:51)
[2022-11-20] MEDS: Acetaminophen 325 MG TABLET 650 MG PO (20:51)
[2022-11-20] MEDS: 0.9 % Sodium Chloride Flush 3 ML SYRINGE IVFLUSH (20:52)
[2022-11-21 04:00] VITALS: BP 145/75; PULSE 72; RESP 18; TEMP 36.7; O2SAT 95
[2022-11-21] MEDS: Lactated Ringers 1,000 ML 75 ML IVCONT (04:43)
[2022-11-21] MEDS: Acetaminophen 325 MG TABLET 650 MG PO ×2 (04:47→19:43)
[2022-11-21 08:00] VITALS: BP 153/71; PULSE 80; RESP 18; TEMP 36.5; O2SAT 97
[2022-11-21] MEDS: carvediloL 3.125 MG TABLET PO ×2 (09:08→19:43)
[2022-11-21] MEDS: Thiamine HCL 100 MG TABLET PO (09:09)
[2022-11-21] MEDS: Enoxaparin Sodium 40 MG/0.4 ML SYRINGE SUBCUT (09:09)
[2022-11-21] MEDS: Folic Acid 1 MG TABLET PO (09:09)
[2022-11-21] MEDS: Nystatin Ointment 15 GM TUBE 1 APPL TOPICAL ×2 (09:15→19:49)
[2022-11-21 11:01] VITALS: BP 134/74; PULSE 80; RESP 18; TEMP 36.7; O2SAT 96
--- NOTE | 2022-11-21 11:28 | HO.PM.IMPN ---
Subjective Subjective Date of Service: 11/21/22 Interval History: seen and examined this morning follow up for agitation,lethargy more awake today, able to answer most questions, following commands; knows his name and that he is at [facility]. no specific complaints Review of Systems Review of Systems: Yes all other systems are reviewed and are negative Constitutional Constitutional: Denies chills and Denies fever(s) Cardiovascular Cardiovascular: Denies chest pain, Denies palpitations and Denies dyspnea Respiratory Respiratory: Denies cough and Denies dyspnea Gastrointestinal Gastrointestinal: Denies abdominal pain, Denies nausea and Denies vomiting Endocrine Endocrine: Denies palpitations Physical Exam Vital Signs: Vital Signs: Last Vital Signs Temp 98.1 F 11/21/22 11:01 Pulse 80 11/21/22 11:01 Resp 18 11/21/22 11:01 BP 134/74 11/21/22 11:01 Pulse Ox 96 11/21/22 11:01 O2 Del Method Nasal Cannula 11/21/22 11:01 O2 Flow Rate 3 11/21/22 11:01 BMI result Body Mass Index 26.1 Appearing in no acute distress lung sounds are clear to auscultation heart regular rate rhythm, clear S1, S2 positive bowel sounds, abdomen is soft, nontender neuro patient is alert x3, no focal deficits Objective Data Active Medications Acetaminophen (Acetaminophen 325 Mg Tablet) 650 mg PO Q6H PRN PRN Reason: Pain, Mild (Pain Scale 1-3) Last Admin: 11/21/22 04:47 Dose: 650 mg Documented By: ZACHARY Carvedilol (Carvedilol 3.125 Mg Tablet) 3.125 mg PO BID [facility]; Protocol Last Admin: 11/21/22 09:08 Dose: 3.125 mg Documented By: MYA Enoxaparin Sodium (Enoxaparin Sodium 40 Mg/0.4 Ml Syringe) 40 mg SUBCUT Q24H [facility] Last Admin: 11/21/22 09:09 Dose: 40 mg Documented By: MYA Folic Acid (Folic Acid 1 Mg Tablet) 1 mg PO DAILY [facility] Last Admin: 11/21/22 09:09 Dose: 1 mg Documented By: MYA Lactated Ringer's (Lr) 1,000 mls @ 75 mls/hr IVCONT .[id number] [facility] Last Admin: 11/21/22 04:43 Dose: 75 mls/hr Documented By: ZACHARY Melatonin (Melatonin 3 Mg Tablet) 6 mg PO BEDTIME PRN PRN Reason: Insomnia Last Admin: 11/20/22 20:51 Dose: 6 mg Documented By: ZACHARY Nystatin (Nystatin Ointment 15 Gm Tube) 1 appl TOPICAL BID [facility]; Protocol Last Admin: 11/21/22 09:15 Dose: 1 appl Documented By: MYA Ondansetron HCl (Ondansetron Hcl 4 Mg/2 Ml Vial) 4 mg IVPUSH Q8H PRN PRN Reason: Nausea and Vomiting Last Admin: 11/18/22 18:07 Dose: 4 mg Documented By: KENAVEPRATIMA Sodium Chloride (0.9 % Sodium Chloride Flush 3 Ml Syringe) 3 ml IVFLUSH QSHIFT [facility] Last Admin: 11/21/22 09:09 Dose: Not Given Documented By: MYA Non-Admin Reason: IV Running Thiamine HCl (Thiamine Hcl 100 Mg Tablet) 100 mg PO DAILY [facility] Last Admin: 11/21/22 09:09 Dose: 100 mg Documented By: MYA Labs 11/20/22 06:02 11/20/22 06:02 Labs: Laboratory Results - last 24 hr 11/20/22 12:49 Vitamin B12 308 Folate 11.0 TSH 0.71 Assessment and Plan (1) Elevated troponin: Status: Acute (2) Encephalopathy: Status: Acute Plan This is a 77-year-old male with pertinent history of essential hypertension, mixed hyperlipidemia, gastroesophageal reflux disease, alcohol use disorder who was brought to the emergency department via EMS for evaluation of fall and lethargy with episodes of agitation metabolic encephalopathy with periods of agitation head CT negative for acute change, utox negative. alcohol level 35 on admission but no hemodynamic instability to suggest alcohol withdrawal at this time ammonia negative, abg without co2 retention, renal function normal remains afebrile, no leukocytes, no signs of infection UA, CXR, CTA negative initially treated with prn ativan, and zyprexa, but patient became sedated, all sedating meds stopped psych consult still pending and reconsulted today neuro consult> significant brain atrophy noted could be cause of moderate to severe dementia follow mental status closely Moderate hyponatremia, due to SIADH sodium normalized fluid restriction, 1 liter Mechanical fall due to lethargy unknown source of lethargy, ? alcohol intoxication no source of infection, neg ua, chest CTA neg for consolidation or PE neg blood cx Physical therapy>rec STR Alcohol use disorder. Alcohol level 35 on admission states he drinks 5 beers daily, unclear if this is accurate continue thiamine and folic acid. do not think agitation is related to alcohol withdrawal CIWA Elevated troponin. 189.4, 192.5, trending down to 99.5 seen by cardiology, Type 2 event due to elevated blood pressure started on carvedilol echo -no wma, preserved EF acute lactic acidosis not related to sepsis resolved pulmonary nodule seen on CTA recommend outpatient followup imaging Hypertension BP improved continue coreg DVT prophylaxis: Lovemaddiex Attending Dr. Ortez Full code attempted to call HCP and friend Raul yesterday and today, no answer, no mailbox to leave message patient requires ongoing inpatient stay for management of agitation/lethargy Time Spent With Patient Time: Total time managing care of this patient today ____ minutes. Quality Stroke Does the patient have a stroke diagnosis?: No VTE Prior VTE?: No VTE Risk Level:: Medical - moderate - high VTE Device Contraindication: Treatment Not Indicated VTE Drug Contraindication: N/A - Med Ordered
--- NOTE | 2022-11-21 13:27 | PM.PSYCN ---
History of Present Illness Date of Service: 11/21/2022 Chief Complaint: lethargy and fall, +trop Sources of Information: patient interviewed and chart reviewed HPI Narrative: Consult request for medication management for agitation Met with patient. Discussed with Nursing. Chart reviewed. admitted on 11/18/2022 in the context of a fall at home and lethargy and and 1 being activated. Noted sodium levels were low. Blood alcohol level was 35. started on the CIWA. Neurology consult on 11/20/2022 noted atrophy and likely dementia. There are no no clear source of collateral. patient initially irritated with consult stating he did not need to see a psychiatrist and was not crazy. That being said did answer some basic questions and there is evidence of cognitive impairment for example difficulty with month, the year was 2020. he was aware he was at [facility] and that he had a fall a few days ago. Reports his main concern is he cannot walk very anxious and upset when talking about this. Does endorse getting irritated with staff and talks loudly which can come across as shouting. Does not feel paranoid or unsafe. Is open to some medication for frustration and agitation. Regarding alcohol reports he does drink, but denies it being a large amount- reluctant around details. There is no evidence of withdrawal i.e. no tremors, sweats her abnormal vitals. No hallucinations. Denies any past psychiatric history. Past Psychiatric History: Denied [facility] Medical History COVID-19 virus infection Diverticular disease Colon cancer Overweight (BMI 25.0-29.9) Hypertension Knee osteoarthritis GERD (gastroesophageal reflux disease) Hypercholesterolemia Alcohol abuse Prostate cancer Arthritis of knee Surgical History History of surgery H/O umbilical hernia repair H/O right hemicolectomy History of total right hip arthroplasty History of total right knee replacement History of total left knee replacement Social History: reports living alone in [place]. Reports not having family or support as they . Diagnostics Vital Signs (24Hr): Vital Signs - 24 hr 11/20/22 15:29 11/20/22 19:02 11/20/22 23:03 Temperature 97.3 F 98.6 F Pulse Rate 82 84 78 Respiratory Rate 20 20 Blood Pressure 138/69 151/80 H Pulse Oximetry 98 97 Oxygen Delivery Method Nasal Cannula Nasal Cannula Oxygen Flow Rate 3 2 11/21/22 04:00 11/21/22 08:00 11/21/22 11:01 Temperature 98.0 F 97.7 F 98.1 F Pulse Rate 72 80 80 Respiratory Rate 18 18 18 Blood Pressure 145/75 H 153/71 H 134/74 Pulse Oximetry 95 97 96 Oxygen Delivery Method Room Air Nasal Cannula Nasal Cannula Oxygen Flow Rate 3 3 BMI result Body Mass Index 26.1 Labs 11/20/22 06:02 11/20/22 06:02 Labs: Laboratory Results - last 48 hr 11/19/22 11/20/22 11/20/22 14:12 06:02 12:49 WBC 7.0 RBC 3.80 L Hgb 11.6 L Hct 35.1 L MCV 92.4 MCH 30.5 MCHC 33.0 RDW 13.0 Plt Count 227 MPV 9.7 Absolute Nucleated RBC 0.000 Nucleated RBC % (auto) 0.0 O2 Saturation 64.0 ABG pH at Pt Temp 7.42 ABG pCO2 at Pt Temp 44 ABG pO2 at Pt Temp 37 L* ABG HCO3 29 H ABG Base Excess (Actual) 4.1 Sodium 136 Potassium 3.5 Chloride 104 Carbon Dioxide 23 Anion Gap 13 BUN 11 Creatinine 0.59 Estim Creat Clear Calc 116.6 Estimated GFR > 60 Random Glucose 98 Calcium 8.6 Vitamin B12 308 Folate 11.0 TSH 0.71 Imaging Radiology Impressions: ITS Impressions Head CT 11/17/22 21:32 IMPRESSION: No acute intracranial abnormality including hemorrhage, mass effect, hydrocephalus, or acute territorial edematous infarction. Chest CTA 11/18/22 00:25 IMPRESSION: 1. No evidence of pulmonary emboli. 2. Pulmonary nodules measuring up to 6 mm in size in the right lower - the largest is new when compared to 05/05/2022. VTE: negative. According to the UPDATED 2017 Fleischner Society recommendations, the advised follow-up imaging for multiple solid nodules measuring up to 6-8 mm is follow-up CT at 3 to 6 months. In high-risk patients, subsequent CT follow-up at 18 to 24 months is recommended. In low-risk patients, subsequent CT follow-up at 18 to 24 months is optional. Chest X-Ray 11/19/22 14:16 IMPRESSION: Unremarkable chest exam. Mental Status Exam Mental Status Exam Narrative: Hospital clothing. Some irritability and frustration. Some cognitive impairment with difficulty around month and year. No evidence of SI HI depression or psychosis. Medications Medications Current Medications Acetaminophen (Acetaminophen 325 Mg Tablet) 650 mg PO Q6H PRN PRN Reason: Pain, Mild (Pain Scale 1-3) Last Admin: 11/21/22 04:47 Dose: 650 mg Carvedilol (Carvedilol 3.125 Mg Tablet) 3.125 mg PO BID [facility]; Protocol Last Admin: 11/21/22 09:08 Dose: 3.125 mg Enoxaparin Sodium (Enoxaparin Sodium 40 Mg/0.4 Ml Syringe) 40 mg SUBCUT Q24H [facility] Last Admin: 11/21/22 09:09 Dose: 40 mg Folic Acid (Folic Acid 1 Mg Tablet) 1 mg PO DAILY [facility] Last Admin: 11/21/22 09:09 Dose: 1 mg Lactated Ringer's (Lr) 1,000 mls @ 75 mls/hr IVCONT .[id number] [facility] Last Admin: 11/21/22 04:43 Dose: 75 mls/hr Melatonin (Melatonin 3 Mg Tablet) 6 mg PO BEDTIME PRN PRN Reason: Insomnia Last Admin: 11/20/22 20:51 Dose: 6 mg Nystatin (Nystatin Ointment 15 Gm Tube) 1 appl TOPICAL BID [facility]; Protocol Last Admin: 11/21/22 09:15 Dose: 1 appl Ondansetron HCl (Ondansetron Hcl 4 Mg/2 Ml Vial) 4 mg IVPUSH Q8H PRN PRN Reason: Nausea and Vomiting Last Admin: 11/18/22 18:07 Dose: 4 mg Sodium Chloride (0.9 % Sodium Chloride Flush 3 Ml Syringe) 3 ml IVFLUSH QSHIFT [facility] Last Admin: 11/21/22 09:09 Dose: Not Given Thiamine HCl (Thiamine Hcl 100 Mg Tablet) 100 mg PO DAILY [facility] Last Admin: 11/21/22 09:09 Dose: 100 mg Allergies Allergies Allergy/AdvReac Type Severity Reaction Status Date / Time No Known Allergies Allergy Verified 11/17/22 19:45 [No Known Allergies*] Assessment & Plan Assessment & Plan (1) Cognitive impairment: Status: Acute Code(s): R41.89 - Other symptoms and signs involving cognitive functions and awareness (2) Agitation: Status: Acute Code(s): R45.1 - Restlessness and agitation Plan Does present with cognitive impairment with unclear baseline. Current agitation in apparent this not appear to be alcohol withdrawal related. Would recommend: 1) low-dose Risperdal 0.5mg bid for agitation and as this lessens, then coming off Risperdal. 2) team get get collateral around baseline functioning if possible 3) PT/OT around patient's abilities and care plan accordingly 4) will follow Total time managing care of this patient today ____ minutes. Patient educated on: medication risk/benefits Informed Consent: understands
[2022-11-21] MEDS: risperiDONE 0.5 MG TABLET PO ×2 (15:23→19:43)
[2022-11-21 15:44] VITALS: BP 165/70; PULSE 79; RESP 17; TEMP 36.9; O2SAT 95
[2022-11-21 19:27] VITALS: BP 135/78; PULSE 82; RESP 17; TEMP 36.6; O2SAT 97
[2022-11-21] MEDS: 0.9 % Sodium Chloride Flush 3 ML SYRINGE IVFLUSH (19:44)
[2022-11-22] VITALS (7 sets, daily range): BP systolic 128–168; BP diastolic 63–86; PULSE 74–84; RESP 18–20; TEMP 36.1–36.8; O2SAT 94–97
[2022-11-22] MEDS: Melatonin 3 MG TABLET 6 MG PO (00:17)
[2022-11-22] MEDS: Enoxaparin Sodium 40 MG/0.4 ML SYRINGE SUBCUT (08:02)
[2022-11-22] MEDS: Folic Acid 1 MG TABLET PO (08:02)
[2022-11-22] MEDS: NeoMY/Polymyx/Dexameth Oph Sus 5 ML BOTTLE 2 DROP EYE-BOTH ×4 (08:02→19:44)
[2022-11-22] MEDS: risperiDONE 0.5 MG TABLET PO ×2 (08:02→19:44)
[2022-11-22] MEDS: carvediloL 3.125 MG TABLET PO ×2 (08:02→19:44)
[2022-11-22] MEDS: Thiamine HCL 100 MG TABLET PO (08:02)
[2022-11-22] MEDS: Acetaminophen 325 MG TABLET 650 MG PO (08:02)
[2022-11-22] MEDS: 0.9 % Sodium Chloride Flush 3 ML SYRINGE IVFLUSH ×2 (08:03→12:19)
[2022-11-22] MEDS: Nystatin Ointment 15 GM TUBE 1 APPL TOPICAL ×2 (08:10→19:44)
--- NOTE | 2022-11-22 10:07 | P.PNIM_ITS ---
Subjective Subjective Date of Service: 11/22/22 Interval History: seen and examined this morning follow up for agitation,lethargy more oriented today no specific complaints Review of Systems Review of Systems: Yes all other systems are reviewed and are negative Constitutional Constitutional: Denies chills and Denies fever(s) Cardiovascular Cardiovascular: Denies chest pain, Denies palpitations and Denies dyspnea Respiratory Respiratory: Denies cough and Denies dyspnea Gastrointestinal Gastrointestinal: Denies abdominal pain, Denies nausea and Denies vomiting Endocrine Endocrine: Denies palpitations Physical Exam 2 Vital Signs: Vital Signs: Last Vital Signs Temp 97.8 F 11/22/22 07:56 Pulse 78 11/22/22 07:56 Resp 18 11/22/22 07:56 BP 145/69 H 11/22/22 07:56 Pulse Ox 97 11/22/22 07:56 O2 Del Method Nasal Cannula 11/22/22 07:56 O2 Flow Rate 2 11/22/22 07:56 BMI result Body Mass Index 26.1 Appearing in no acute distress lung sounds are clear to auscultation heart regular rate rhythm, clear S1, S2 positive bowel sounds, abdomen is soft, nontender neuro patient is alert x3, no focal deficits Objective Data Active Medications Acetaminophen (Acetaminophen 325 Mg Tablet) 650 mg PO Q6H PRN PRN Reason: Pain, Mild (Pain Scale 1-3) Last Admin: 11/22/22 08:02 Dose: 650 mg Documented By: URSULA Carvedilol (Carvedilol 3.125 Mg Tablet) 3.125 mg PO BID [facility]; Protocol Last Admin: 11/22/22 08:02 Dose: 3.125 mg Documented By: URSULA Enoxaparin Sodium (Enoxaparin Sodium 40 Mg/0.4 Ml Syringe) 40 mg SUBCUT Q24H [facility] Last Admin: 11/22/22 08:02 Dose: 40 mg Documented By: URSULA Folic Acid (Folic Acid 1 Mg Tablet) 1 mg PO DAILY [facility] Last Admin: 11/22/22 08:02 Dose: 1 mg Documented By: URSULA Melatonin (Melatonin 3 Mg Tablet) 6 mg PO BEDTIME PRN PRN Reason: Insomnia Last Admin: 11/22/22 00:17 Dose: 6 mg Documented By: ZACHARY Neomycin/Polymyxin/Dexamethasone (Neomy/Polymyx/Dexameth Oph Tanvi 5 Ml Bottle) 2 drop EYE-BOTH RQ4H WHILE AWAKE [facility] Last Admin: 11/22/22 08:02 Dose: 2 drop Documented By: URSULA Nystatin (Nystatin Ointment 15 Gm Tube) 1 appl TOPICAL BID [facility]; Protocol Last Admin: 11/22/22 08:10 Dose: 1 appl Documented By: URSULA Ondansetron HCl (Ondansetron Hcl 4 Mg/2 Ml Vial) 4 mg IVPUSH Q8H PRN PRN Reason: Nausea and Vomiting Last Admin: 11/18/22 18:07 Dose: 4 mg Documented By: SYLVESTER Risperidone (Risperidone 0.5 Mg Tablet) 0.5 mg PO BID [facility] Last Admin: 11/22/22 08:02 Dose: 0.5 mg Documented By: URSULA Sodium Chloride (0.9 % Sodium Chloride Flush 3 Ml Syringe) 3 ml IVFLUSH QSHIFT [facility] Last Admin: 11/22/22 08:03 Dose: 3 ml Documented By: URSULA Thiamine HCl (Thiamine Hcl 100 Mg Tablet) 100 mg PO DAILY [facility] Last Admin: 11/22/22 08:02 Dose: 100 mg Documented By: URSULA Labs 11/20/22 06:02 11/20/22 06:02 Assessment and Plan (1) Elevated troponin: Status: Acute (2) Encephalopathy: Status: Acute Plan This is a 77-year-old male with pertinent history of essential hypertension, mixed hyperlipidemia, gastroesophageal reflux disease, alcohol use disorder who was brought to the emergency department via EMS for evaluation of fall and lethargy with episodes of agitation metabolic encephalopathy with periods of agitation. Resolved head CT negative for acute change, utox negative. alcohol level 35 on admission but no hemodynamic instability to suggest alcohol withdrawal at this time ammonia negative, abg without co2 retention, renal function normal remains afebrile, no leukocytes, no signs of infection UA, CXR, CTA negative initially treated with prn ativan, and zyprexa, but patient became sedated, all sedating meds stopped neuro consult> significant brain atrophy noted could be cause of moderate to severe dementia Psych consult>started on Risperidone 0.5mg BID PT consult>STR OT consult pending Moderate hyponatremia, due to SIADH . resolved fluid restriction, 1 liter Mechanical fall due to lethargy unknown source of lethargy, ? alcohol intoxication no source of infection, neg ua, chest CTA neg for consolidation or PE neg blood cx Physical therapy>rec STR Alcohol use disorder. Alcohol level 35 on admission states he drinks 5 beers daily, unclear if this is accurate continue thiamine and folic acid. do not think agitation is related to alcohol withdrawal CIWA Elevated troponin. 189.4, 192.5, trending down to 99.5 seen by cardiology, Type 2 event due to elevated blood pressure started on carvedilol echo -no wma, preserved EF acute lactic acidosis not related to sepsis resolved pulmonary nodule seen on CTA recommend outpatient followup imaging Hypertension BP improved continue coreg DVT prophylaxis: Lovejohn Attending Dr. Ortez Full code DISPO plan to tx to STR when medically clear patient requires ongoing inpatient stay for management of agitation/lethargy Time Spent With Patient Time: Total time managing care of this patient today ____ minutes. Quality Stroke Does the patient have a stroke diagnosis?: No VTE Prior VTE?: No VTE Risk Level:: Medical - moderate - high VTE Device Contraindication: Treatment Not Indicated VTE Drug Contraindication: N/A - Med Ordered
--- NOTE | 2022-11-22 14:19 | PC.NURSE ---
Patient pulled IV on own at this time. Nikkie Kunz NP aware and agreed there is not necessity to replace access at this time.
--- NOTE | 2022-11-22 15:33 | PM.PSYCN ---
History of Present Illness Date of Service: 11/23/22 Chief Complaint: lethargy and fall, +trop HPI Narrative: Please see consult note from 11/21/2022 for more background in detail. Overall patient has been much more responsive and engaged. Less agitated. Is allowing care to be delivered. Pleasant today. Eating. Remember engineering writer from yesterday. States he is looking forward to going to physical rehab so he can get his strength back and not be concerned about falling. No evidence of aggression agitation or psychosis or delirium. Past Psychiatric History: Denied [facility] Medical History COVID-19 virus infection Diverticular disease Colon cancer Overweight (BMI 25.0-29.9) Hypertension Knee osteoarthritis GERD (gastroesophageal reflux disease) Hypercholesterolemia Alcohol abuse Prostate cancer Arthritis of knee Surgical History History of surgery H/O umbilical hernia repair H/O right hemicolectomy History of total right hip arthroplasty History of total right knee replacement History of total left knee replacement Social History: reports living alone in [place]. Reports not having family or support as they . Diagnostics Vital Signs (24Hr): Vital Signs - 24 hr 11/21/22 15:44 11/21/22 19:27 11/22/22 00:00 Temperature 98.5 F 98 F 98.1 F Pulse Rate 79 82 74 Respiratory Rate 17 17 20 Blood Pressure 165/70 H 135/78 143/63 H Pulse Oximetry 95 97 97 Oxygen Delivery Method Nasal Cannula Nasal Cannula Nasal Cannula Oxygen Flow Rate 2 2 2 11/22/22 03:24 11/22/22 07:56 11/22/22 11:45 Temperature 97.0 F 97.8 F 98.2 F Pulse Rate 76 78 82 Respiratory Rate 20 18 18 Blood Pressure 139/74 145/69 H 128/65 Pulse Oximetry 96 97 96 Oxygen Delivery Method Nasal Cannula Nasal Cannula Room Air Oxygen Flow Rate 2 2 BMI result Body Mass Index 26.1 Labs 11/20/22 06:02 11/20/22 06:02 Imaging Radiology Impressions: ITS Impressions Head CT 11/17/22 21:32 IMPRESSION: No acute intracranial abnormality including hemorrhage, mass effect, hydrocephalus, or acute territorial edematous infarction. Chest CTA 11/18/22 00:25 IMPRESSION: 1. No evidence of pulmonary emboli. 2. Pulmonary nodules measuring up to 6 mm in size in the right lower - the largest is new when compared to 05/05/2022. VTE: negative. According to the UPDATED 2017 Fleischner Society recommendations, the advised follow-up imaging for multiple solid nodules measuring up to 6-8 mm is follow-up CT at 3 to 6 months. In high-risk patients, subsequent CT follow-up at 18 to 24 months is recommended. In low-risk patients, subsequent CT follow-up at 18 to 24 months is optional. Chest X-Ray 11/19/22 14:16 IMPRESSION: Unremarkable chest exam. Mental Status Exam Mental Status Exam Narrative: Hospital clothing. In chair. He eating lunch. Allowing care to be delivered. Remember engineering writer from yesterday. No evidence of depression, over cognitive impairment, psychosis or agitation. Insight and judgment does appear to be improving. Medications Medications Current Medications Acetaminophen (Acetaminophen 325 Mg Tablet) 650 mg PO Q6H PRN PRN Reason: Pain, Mild (Pain Scale 1-3) Last Admin: 11/22/22 08:02 Dose: 650 mg Carvedilol (Carvedilol 3.125 Mg Tablet) 3.125 mg PO BID [facility]; Protocol Last Admin: 11/22/22 08:02 Dose: 3.125 mg Enoxaparin Sodium (Enoxaparin Sodium 40 Mg/0.4 Ml Syringe) 40 mg SUBCUT Q24H [facility] Last Admin: 11/22/22 08:02 Dose: 40 mg Folic Acid (Folic Acid 1 Mg Tablet) 1 mg PO DAILY [facility] Last Admin: 11/22/22 08:02 Dose: 1 mg Melatonin (Melatonin 3 Mg Tablet) 6 mg PO BEDTIME PRN PRN Reason: Insomnia Last Admin: 11/22/22 00:17 Dose: 6 mg Neomycin/Polymyxin/Dexamethasone (Neomy/Polymyx/Dexameth Oph Tanvi 5 Ml Bottle) 2 drop EYE-BOTH RQ4H WHILE AWAKE [facility] Last Admin: 11/22/22 15:12 Dose: 2 drop Nystatin (Nystatin Ointment 15 Gm Tube) 1 appl TOPICAL BID [facility]; Protocol Last Admin: 11/22/22 08:10 Dose: 1 appl Ondansetron HCl (Ondansetron Hcl 4 Mg/2 Ml Vial) 4 mg IVPUSH Q8H PRN PRN Reason: Nausea and Vomiting Last Admin: 11/18/22 18:07 Dose: 4 mg Risperidone (Risperidone 0.5 Mg Tablet) 0.5 mg PO BID [facility] Last Admin: 11/22/22 08:02 Dose: 0.5 mg Sodium Chloride (0.9 % Sodium Chloride Flush 3 Ml Syringe) 3 ml IVFLUSH QSHIFT [facility] Last Admin: 11/22/22 12:19 Dose: 3 ml Thiamine HCl (Thiamine Hcl 100 Mg Tablet) 100 mg PO DAILY [facility] Last Admin: 11/22/22 08:02 Dose: 100 mg Allergies Allergies Allergy/AdvReac Type Severity Reaction Status Date / Time No Known Allergies Allergy Verified 11/17/22 19:45 [No Known Allergies*] Assessment & Plan Assessment & Plan (1) Agitation: Status: Acute Code(s): R45.1 - Restlessness and agitation Plan Cognition improving. No agitation. Accepting medications. Does appear to have an understanding of circumstances in treatment planning and reports looking forward to physical rehab treatment. Regarding Risperdal, from tomorrow (11/23) would lower that to 0.5mg at bedtime and 0.5mg as needed up to 2 times per day for agitation, then on 11/25 if no issues, stop scheduled bedtime dose and maintain prn dose availability. Overall no further indication for psychiatry at this point will sign off case. Please re-consult if needed. Total time managing care of this patient today ____ minutes. Patient educated on: medication risk/benefits Informed Consent: understands
--- NOTE | 2022-11-23 00:36 | MHC.PIE ---
p; pt in room trying to get out of bed yelling and screaming at staff trying to kick the staff and screaming profanity numerous times i; dr crocker notified; new order zyprexa im now. security notified by concerned vmt e; security in room. will cont to monitor
[2022-11-23] MEDS: OLANZapine 10 MG VIAL IM (00:45)
--- NOTE | 2022-11-23 04:01 | MHC.PIE ---
p; pt once again agitated, restless, verbally abusive and screaming profanity as pt trying to kick staff i; dr crocker notified. new order sandi im now e; nursing full service supervisor and 2 fish smoker in room, will cont to monitor
[2022-11-23] MEDS: Haloperidol Lactate 5 MG/ML VIAL IM (04:07)
[2022-11-23 06:57] VITALS: BP 170/90; PULSE 83; RESP 19; TEMP 36.6
[2022-11-23] MEDS: Enoxaparin Sodium 40 MG/0.4 ML SYRINGE SUBCUT (08:23)
[2022-11-23] MEDS: Thiamine HCL 100 MG TABLET PO (08:23)
[2022-11-23] MEDS: Folic Acid 1 MG TABLET PO (08:23)
[2022-11-23] MEDS: Nystatin Ointment 15 GM TUBE 1 APPL TOPICAL (08:23)
[2022-11-23] MEDS: carvediloL 3.125 MG TABLET PO (08:23)
[2022-11-23] MEDS: risperiDONE 0.5 MG TABLET PO (08:23)
[2022-11-23] MEDS: NeoMY/Polymyx/Dexameth Oph Sus 5 ML BOTTLE 2 DROP EYE-BOTH (08:23)
--- NOTE | 2022-11-23 11:04 | MHC.SL.SWA ---
Speech Pathologist Impression: Risk of aspiration, oral phase dysphagia Risk of Aspiration Due to: Lethargy Dysphasia Diet Status: No change Liquid Consistency and Strategies for Safe Swallow: Liquid Intake Recommendation: Thin Liquid Intake Strategies: Small Sips No Straws Solid Food Consistency: Dietary Recommendations: Grnd/Mech Altered (NDD2) Additional Modifications to Solid Foods: GROUND/MECH ALTERED (NDD2) solids moistened and softened with sauces/gravies, THIN liquids, pills WHOLE or CRUSHED in PUREE depending on pt's tolerance. Pt to have total supervision during PO intake, ensure aspiration precautions. Pt to alternate sips/bites, dry swallow between bites to promote oral clearance. Oral Medication Intake: Crushed with Puree Please contact the pharmacy regarding appropriate crushable or liquid drug formulations that are available whenever modified delivery is recommended. Compensatory Strategies and Precautions to be Taken for Safe Swallow: Sitting Upright (90 deg) Double Swallow No Straw Small Bites and Sips Alternate Liquids/Solids Rate of Ingestion Change Avoid Specific Foods Supervision While Eating and Drinking for Safe Swallow: Total Supervision (1:1) Foods to Avoid: Sticky, dry, or hard to chew solids; mixed textures Swallowing Recommended Treatments: Compens. Strategy Educat. Recommendation for Speech: D/C Quad Stayer Clinican/Clinical Fellow: No Supervisory Statement: I have reviewed and agree with the student/clinical fellow's documentation: N/A Speech Language Pathologist: Mayelin Segura M.A., CCC-WATER PLANT PUMP OPERATOR SUPERVISOR
[2022-11-23 11:28] VITALS: BP 157/82; PULSE 77; RESP 18; TEMP 36.6; O2SAT 95
--- NOTE | 2022-11-23 12:54 | P.DS_ITS ---
DS: Providers Provider Date of Service: 11/23/22 Date of admission: 11/18/22 15:38 Date of discharge: 11/23/22 Primary care physician: Jamar England MD Consults: 11/18/22 01:06 Consult to Cardiology Routine Consulting Provider: [facility] Reason for consultation: Elevated troponin Has provider been notified: Yes 11/19/22 14:19 Consult to Psychiatry Routine Consulting Provider: [facility] Reason for consultation: fluctuating agitation/lethargy; assistance with med management Has provider been notified: No 11/19/22 19:03 Consult to Neurology Routine Consulting Provider: [facility] Reason for consultation: confusion Has provider been notified: No 11/21/22 11:58 Consult to Psychiatry Routine Consulting Provider: Psych Covering Reason for consultation: fluctuating agitation/lethargy; assistance with med management DS: Diagnosis Discharge Diagnosis (1) Hyponatremia: Status: Acute (2) Agitation: Status: Acute DS: Summary Time Spent with Patient Time attestation: Total time managing care of this patient today ____ minutes. Discharge coordination time: Greater than 30 minutes Quality: Safe Use of Opioids Does Pt have an Active Cancer Diagnosis on the Problem List?: No Quality: Stroke Does the patient have a stroke diagnosis?: No Physical Exam Vital Signs: Vital Signs: Last Vital Signs Temp 98 F 11/23/22 11:28 Pulse 77 11/23/22 11:28 Resp 18 11/23/22 11:28 BP 157/82 H 11/23/22 11:28 Pulse Ox 95 11/23/22 11:28 O2 Del Method Room Air 11/23/22 11:28 O2 Flow Rate 2 11/22/22 07:56 BMI result Body Mass Index 26.1 Const: Other: Awake alert confused Resp: Other: Clear to auscultation bilaterally no rales rhonchi or wheezes Cardio: Other: No S4; positive S1-S2; no S3 murmurs rubs or gallops GI: Other: Soft nontender nondistended normoactive bowel sounds Extrem: Other: No edema bilaterally Discharge Plan Discharge Anticipated Discharge Date/Time: 11/23/22 12:50 Patient Disposition: Xfer [facility] Discharge Diagnosis: Hyponatremia Referrals: Jamar England MD [Primary Care Provider] - 1 Week Discharge Medications: New carvedilol 3.125 mg Tablet 3.125 mg PO BID Qty: 60 0RF Protocol: Hold for SBP/HR < HOLD for SBP < : 90 HOLD for HR < : 60 risperidone 0.5 mg Tablet 0.5 mg PO BID Qty: 60 0RF Continued multivitamin [Daily Multi-Vitamin] Tablet 1 tab PO DAILY Discharge Orders: Discharge Order (Routine); Ordered 11/23/22 Ordered By: Cesario Michelle Diet: Advance to usual diet Activity on Discharge: As tolerated Stand Alone Forms: Patient Portal Discharge page Care Plan Goals: Continue meds as ordered Health Concerns: Further plans as per receiving facility Plan of Treatment: Further plans as per receiving facility Assessment: See discharge some
--- NOTE | 2022-11-23 12:57 | P.DS_ITS ---
DS: Providers Provider Date of Service: 11/23/22 Date of admission: 11/18/22 15:38 Date of discharge: 11/23/22 Primary care physician: Jamar England MD Consults: 11/18/22 01:06 Consult to Cardiology Routine Consulting Provider: [facility] Reason for consultation: Elevated troponin Has provider been notified: Yes 11/19/22 14:19 Consult to Psychiatry Routine Consulting Provider: [facility] Reason for consultation: fluctuating agitation/lethargy; assistance with med management Has provider been notified: No 11/19/22 19:03 Consult to Neurology Routine Consulting Provider: [facility] Reason for consultation: confusion Has provider been notified: No 11/21/22 11:58 Consult to Psychiatry Routine Consulting Provider: [facility] Reason for consultation: fluctuating agitation/lethargy; assistance with med management DS: Diagnosis Discharge Diagnosis (1) Hyponatremia: Status: Acute (2) Agitation: Status: Acute DS: Summary Hospital Course Hospital Course: 7-year-old male with pertinent history of essential hypertension, mixed hyperlipidemia, gastroesophageal reflux disease, alcohol use disorder who was brought to the emergency department via EMS for evaluation of fall and lethargy. As per EMS, in a and called 911. Patient is a poor historian, stated that he fell in the shower as he was weak. No loss of consciousness prior to the fall. Patient states he was screaming due to the fall. No rhythmic jerking movement of extremities. Patient denies fever, chills, shortness of breath, abdominal pain, changes in urinary or bowel habits. Hospital Course Admitted to general medical floor and seen in consultation by Neurology. After review of CT scan other studies felt this was related to past history of alcohol nothing else acute. Hyponatremia was significantly improved with volume repletion. At this point in time there are no acute medical issues and patient is stable for transfer to SNF. Seen by Psychiatry who recommended respond all for acute agitation. At this point in time and has been very effective in managing the patient and can be tapered off at the receiving facility Time Spent with Patient Time attestation: Total time managing care of this patient today ____ minutes. Discharge coordination time: Greater than 30 minutes Quality: Safe Use of Opioids Does Pt have an Active Cancer Diagnosis on the Problem List?: No Quality: Stroke Does the patient have a stroke diagnosis?: No Physical Exam Vital Signs: Vital Signs: Last Vital Signs Temp 98 F 11/23/22 11:28 Pulse 77 11/23/22 11:28 Resp 18 11/23/22 11:28 BP 157/82 H 11/23/22 11:28 Pulse Ox 95 11/23/22 11:28 O2 Del Method Room Air 11/23/22 11:28 O2 Flow Rate 2 11/22/22 07:56 BMI result Body Mass Index 26.1 Const: Other: Awake alert confused Resp: Other: Clear to auscultation bilaterally no rales rhonchi or wheezes Cardio: Other: No S4; positive S1-S2; no S3 murmurs rubs or gallops GI: Other: Soft nontender nondistended normoactive bowel sounds Extrem: Other: No edema bilaterally Discharge Plan Discharge Anticipated Discharge Date/Time: 11/23/22 12:50 Patient Disposition: Xfer LTC Discharge Diagnosis: Hyponatremia [facility]errals: [facility] [Other] - 1 Week Jamar England MD [Primary Care Provider] - 1 Week Discharge Medications: New carvedilol 3.125 mg Tablet 3.125 mg PO BID Qty: 60 0RF Protocol: Hold for SBP/HR < HOLD for SBP < : 90 HOLD for HR < : 60 risperidone 0.5 mg Tablet 0.5 mg PO BID Qty: 60 0RF Continued multivitamin [Daily Multi-Vitamin] Tablet 1 tab PO DAILY Discharge Orders: Discharge Order (Routine); Ordered 11/23/22 Ordered By: Cesario Michelle Diet: Advance to usual diet Activity on Discharge: As tolerated Stand Alone Forms: Patient Portal Discharge page Care Plan Goals: Continue meds as ordered Health Concerns: Further plans as per receiving facility Plan of Treatment: Further plans as per receiving facility Assessment: See discharge some
--- NOTE | 2022-11-23 13:00 | MHC.CM.PN ---
Addendum entered by Vashti Bravo 11/23/22 13:11: pts hcp /derrick notified of dc Original Note: pt going to [facility] today at 2;30
== END 2022-11-23 15:39 | DRG 643 ==
LOC: HO.ED 22:13 → HO.EDOVER 11-18 01:09 → HO.IMC 11-18 20:05 → HO.S3 11-22 16:21
PROVIDERS: Nurse Practitioner Acute Care; Physician Assistant Medical; Admitting Provider Student in an Organized Health Care Education/Training Program; Emergency Provider Emergency Medicine; PCP Internal Medicine; Visit Provider Hospitalist
DX: E22.2 Syndrome of inappropriate secretion of antidiuretic hormone (principal); G93.41 Metabolic encephalopathy; E87.21 Acute metabolic acidosis; R79.89 Other specified abnormal findings of blood chemistry; R45.1 Restlessness and agitation; F10.10 Alcohol abuse, uncomplicated; R91.1 Solitary pulmonary nodule; E78.2 Mixed hyperlipidemia; I10 Essential (primary) hypertension; Y90.1 Blood alcohol level of 20-39 mg/100 ml; Z20.822 Contact with and (suspected) exposure to COVID-19; Z79.899 Other long term (current) drug therapy
CPT/HCPCS: 36415; 70450; 71045; 71275; 80048; 80053; 80307; 81003; 82140; 82550; 82607; 82746; 82803; 83605; 83930; 83935; 84295; 84300; 84443; 84484; 85025; 85027; 85379; 87040; 87502; 87635; 92526; 92610; 93005; 93306; 97116; 97162; 97166; 97530; 99285; J1650; J2060; J2359; J2405; Q9957; Q9967

== ENCOUNTER → 2022-11-18 01:06 | Outpatient (BNV) | payer MEDICARE, SELFPAY | PROVIDERS: Admitting Provider Student in an Organized Health Care Education/Training Program; Emergency Provider Emergency Medicine; Visit Provider Student in an Organized Health Care Education/Training Program | DX: E87.1 Hypo-osmolality and hyponatremia (principal); R45.1 Restlessness and agitation | CPT/HCPCS: 99222; 99232; 99233; 99239; 99499 ==

== ENCOUNTER → 2022-11-18 01:06 | Outpatient (BNV) | payer MEDICARE, SELFPAY | PROVIDERS: Admitting Provider Student in an Organized Health Care Education/Training Program; Emergency Provider Emergency Medicine; Visit Provider Internal Medicine Cardiovascular Disease | DX: R79.89 Other specified abnormal findings of blood chemistry (principal); I10 Essential (primary) hypertension | CPT/HCPCS: 99222 ==

== ENCOUNTER 2022-11-18 15:38 | Outpatient (BNV) | payer MEDICARE, SELFPAY | END 2022-11-19 07:00 | PROVIDERS: Admitting Provider Student in an Organized Health Care Education/Training Program; Emergency Provider Emergency Medicine; PCP Internal Medicine; Visit Provider Internal Medicine Cardiovascular Disease | DX: I34.81 Nonrheumatic mitral (valve) annulus calcification (principal) | CPT/HCPCS: 93306 ==

== ENCOUNTER → 2022-11-18 15:38 | Outpatient (BNV) | payer MEDICARE, SELFPAY | PROVIDERS: Admitting Provider Student in an Organized Health Care Education/Training Program; Emergency Provider Emergency Medicine; PCP Internal Medicine; Visit Provider Psychiatry & Neurology Psychiatry | DX: R45.1 Restlessness and agitation (principal) | CPT/HCPCS: 99222; 99232 ==

== ENCOUNTER 2023-01-16 19:28 | Emergency (ER) | payer MEDICARE, SELFPAY ==
--- NOTE | ~2023-01-16 | XR_ITS ---
EXAMINATION: XR CHEST CLINICAL INFORMATION: Fall. Trauma. COMPARISON: Chest x-ray November 19, 2022. CT chest November 18, 2022 TECHNIQUE: Frontal portable view of the chest was obtained. 20 to 35 hours FINDINGS: Lungs are clear. No pulmonary vascular congestion. There is no pleural effusion. The heart size is normal. The cardiac and mediastinal contours are normal. There are calcifications of the thoracic aorta. There are multilevel degenerative changes of dorsal spine. Severe degenerative change of the glenohumeral joint bilaterally. XR/XR chest 1V IMPRESSION: Unremarkable examination.
--- NOTE | ~2023-01-16 | CT_ITS ---
EXAMINATION: CT ABDOMEN AND PELVIS WITHOUT CONTRAST CLINICAL INFORMATION: Abdominal pain. COMPARISON: 05/05/2022 TECHNIQUE: Multidetector volumetric imaging was performed from the superior aspect of the liver through the pubic symphysis. Sagittal and coronal reformatted images were obtained on the technologist's workstation. This CT examination was performed using dose optimization techniques as appropriate, variously including the following: *Automated exposure control *Adjustment of mA and/or kV according to patient size (this includes techniques or standardized protocols for targeted exams where dose is matched to indication/reason for exam; i.e. extremities or head) *Use of iterative reconstruction technique DLP: 913 mGy-cm FINDINGS: LUNG BASES: There are right lung base pulmonary nodules measuring up to 7 mm. There is mild atelectatic change at the left lung base. LIVER, GALLBLADDER, AND BILIARY TREE: Stable scattered hepatic cysts are again seen measuring up to 4.5 cm. The gallbladder is unremarkable with no evidence of radiopaque gallstones, gallbladder wall thickening, or obvious pericholecystic inflammatory changes. PANCREAS: Unremarkable. SPLEEN: Unremarkable. ADRENAL GLANDS: Unremarkable. KIDNEYS AND URETERS: The kidneys are normal in size, shape, and attenuation. No hydronephrosis, hydroureter, or calculi seen. No perinephric stranding. BLADDER: Unremarkable. GASTROINTESTINAL TRACT: There is retained stool. The appendix is not seen. ABDOMINAL WALL: There is a right abdominal wall hernia repair mesh similar to previous. LYMPH NODES: Normal. VASCULAR: Unremarkable. PELVIC VISCERA: Unremarkable. OSSEOUS STRUCTURES: Diffuse moderate thoracolumbar disc degenerative change is again seen. CT/CT abdomen pelvis wo IV con IMPRESSION: No acute intra-abdominal process identified. No significant change compared to prior. Fleischner guidelines were followed.
--- NOTE | ~2023-01-16 | CT_ITS ---
EXAMINATION: CT CERVICAL SPINE WITHOUT CONTRAST; UNENHANCED CT OF THE HEAD. CLINICAL INFORMATION: Neck pain. Fall out of bed. Head trauma. COMPARISON: CT head and cervical spine 05/05/2022. TECHNIQUE: Routine unenhanced CT of the head with multiple coronal and sagittal reformatted images; routine unenhanced CT of the cervical spine with multiple coronal and sagittal reformatted images. This CT examination was performed using dose optimization techniques as appropriate, variously including the following: *Automated exposure control *Adjustment of mA and/or kV according to patient size (this includes techniques or standardized protocols for targeted exams where dose is matched to indication/reason for exam; i.e. extremities or head) *Use of iterative reconstruction technique DLP: 1215 mGy-cm FINDINGS: Moderate diffuse commensurate prominence of ventricles and sulci is noted. No intracranial hemorrhage, tumors or acute infarcts visualized. The orbits and globes are normal in appearance. Subcutaneous density is present in the right supraorbital region similar findings present 05/05/2022 and therefore may represent reinjury to this location or chronic scarring. Ovoid density which may represent a mucosal retention cyst measuring 1.5 cm is noted in the right maxillary sinus posteriorly. Opacification of scattered ethmoid air cells is noted. Partial opacification of the frontal sinuses visualized. CT cervical spine: No fractures or acute appearing subluxations noted. Multilevel intervertebral disc space narrowing and endplate osteophytosis and multilevel facet hypertrophic changes visualized. No prevertebral fluid collections or soft tissue inflammatory changes. Dense bilateral carotid bulb calcific atherosclerosis. The visualized lung apices are clear. CT/CT cervical spine wo IV con IMPRESSION: CT head: *No acute intracranial abnormalities. *Partial opacification of the frontal sinuses, with findings most pronounced on the left and scattered ethmoid air cell opacification. Findings may represent chronic sinusitis. CT cervical spine: *No acute abnormalities. *Advanced multilevel chronic spondylosis.
--- NOTE | 2023-01-16 19:44 | PC.NURSE ---
pt to CT at this time.
[2023-01-16 19:46] VITALS: BP 150/76; PULSE 99; O2SAT 96; BMI 22.6
--- NOTE | 2023-01-16 19:52 | PC.NURSE ---
alert and oriented to self/situation/place. unaware on what year it is - states that it is 2094, vss and up to date at this time. pt comes in d/t unwitnessed fall at home. +headstrike, -loc, -thinners, +c-collar. contusion/laceration noted to forehead/over right eyebrow. bleeding controlled. pt denies pain. no sob/wob noted. respirations even and unlabored. pt seemingly anxious/fearful d/t being in hospital. pt lives home alone/per FD - pt is FTT. pt was recently d/c'd from unknown SNF in [place]. pt returned from CT at this time. resting comfortably in no apparent distress. awaiting results from CT at this time.
[2023-01-16 20:07] VITALS: BP 149/82; PULSE 76; RESP 24; TEMP 37.1; O2SAT 96
[2023-01-16 20:17] LABS: MANUAL DIFF FLAG NO
[2023-01-16 20:19] LABS: Basophils Percent Auto 0.6 % (0-2); Eosinophils Absolute Auto 0.2 X10*3/uL (0.0-0.4); Eosinophils Percent Auto 3.7 % (0-4); Hematocrit 32.3 % (42.0-52.0); Hemoglobin 11.1 g/dl (14.0-18.0); Imm Gran Abs Auto 0.02 X10*3/uL (0.00-0.03); Imm Gran Pct Auto 0.3 % (0.0-0.4); Lymphocytes Absolute Auto 1.5 X10*3/uL (1.2-4.9); Lymphocytes Percent Auto 22.2 % (20-40); Mean Corpuscular HGB Conc 34.4 g/dl (31.0-36.0); Mean Corpuscular Hemoglobin 30.7 pg (27.0-33.0); Mean Corpuscular Volume 89.5 fL (80.0-98.0); Mean Platelet Volume 8.9 fL (9.4-12.4); Monocytes Absolute Auto 0.6 X10*3/uL (0.1-1.2); Monocytes Percent Auto 9.6 % (2-11); Neutrophils Absolute Auto 4.2 x10*3/uL (2.0-8.3); Neutrophils Percent Auto 63.6 % (45-73); Platelet Count 266 X10*3/uL (160-400); Red Blood Count 3.61 X10*6/uL (4.60-5.80); Red Cell Distribution Width 13.2 % (11.0-16.0); White Blood Count 6.5 X10*3/uL (4.8-10.8)
--- NOTE | 2023-01-16 20:20 | PC.NURSE ---
20gIV placed in the right forearm w/o difficulty - labs drawn and sent to lab.
[2023-01-16 20:24] LABS: INTERNATIONAL NORM RATIO 1.1 (0.9-1.1); Prothrombin Time 13.7 SEC (11.1-13.3)
[2023-01-16 20:32] LABS: Alanine Aminotransferase 8 U/L (0-40); Albumin Level 3.8 g/dL (3.5-5.0); Alkaline Phosphatase 97 U/L (39-117); Anion Gap 15 (12-20); Aspartate Amino Transferase 14 U/L (5-37); Bilirubin Total 0.9 mg/dL (0.0-1.0); Blood Urea Nitrogen 14 mg/dL (9-16); Calcium 8.8 mg/dL (8.4-10.2); Carbon Dioxide 21 mmol/L (22-29); Chloride 100 mmol/L (96-108); Creatinine Clr Calc Pharmacy 106.3; Estimated Glomerular Filt Rate > 60; Glucose Random 99 mg/dL (60-115); Magnesium 2.3 mg/dL (1.6-2.6); Potassium 3.8 mmol/L (3.3-5.1); Sodium 132 mmol/L (135-145); Total Protein 6.7 g/dL (6.5-8.0)
--- NOTE | 2023-01-16 20:34 | ED.GENADULT ---
HPI - General Adult General Chief complaint: Fall Stated complaint: pt fell off bed that broken, contus on forehead Time Seen by Provider: 01/16/23 19:36 Source: patient Mode of arrival: EMS Limitations: other (poor historian) History of Present Illness HPI narrative: 77-year-old male history of GERD, hypertension, hypercholesterolemia presents for evaluation after a fall at home. He states when he got into bed, his bed broke and he fell out of bed. He lives alone but was able to get himself up off of the ground right after he fell. He reports hitting his head. He did not lose consciousness. He is not on blood thinners. He denies palpitations, lightheadedness, and dizziness prior to the fall. He denies chest pain and shortness of breath. He denies pain. No abdominal pain, nausea, vomiting. No fevers. No dysuria. No headaches or vision changes. No paresthesias or loss of sensation. No urinary or bowel incontinence. Related Data Home Medications Medication Instructions Recorded Confirmed multivitamin (Daily Multi-Vitamin 1 tab PO DAILY 11/18/22 11/18/22 tablet) Previous Rx's Medication Instructions Recorded carvedilol 3.125 mg tablet 3.125 mg PO BID #60 tabs 11/23/22 risperidone 0.5 mg tablet 0.5 mg PO BID #60 tabs 11/23/22 Allergies Allergy/AdvReac Type Severity Reaction Status Date / Time No Known Allergies Allergy Verified 01/16/23 19:45 [No Known Allergies*] Review of Systems Review of Systems: Constitutional : No Weight loss, No Fever, No Chills, No Fatigue, No Malaise ENT/Mouth : No sore throat, No Rhinorrhea Eyes: No Eye Pain, No Swelling, No Redness Cardiovascular : No Chest Pain, No SOB, No Dyspnea on Exertion, No Orthopnea, No Edema, No Palpitations Respiratory : No Cough, No Sputum, No Wheezing Gastrointestinal : No Nausea, No Vomiting, No Diarrhea, No Constipation, No abdominal Pain, No Hematochezia, No Melena Genitourinary : No Dysuria, No Urinary Frequency, No Hematuria, Musculoskeletal : No joint pain, No Myalgias, No Joint Swelling Skin : No Skin Lesions, No rash Neuro : No Weakness, No Numbness, No Dizziness, No Headache Psych : No Anxiety/Panic, No Depression All other systems reviewed and are negative Yes all other systems are reviewed and are negative [facility] Past Medical History Attestation statement: The following information was validated with the patient. Source: old records reviewed and nursing notes reviewed Medical History Cognitive impairment COVID-19 virus infection Diverticular disease Colon cancer Overweight (BMI 25.0-29.9) Hypertension Knee osteoarthritis GERD (gastroesophageal reflux disease) Hypercholesterolemia Alcohol abuse Prostate cancer Arthritis of knee Surgical History History of surgery H/O umbilical hernia repair H/O right hemicolectomy History of total right hip arthroplasty History of total right knee replacement History of total left knee replacement Family History Family History Mother No problems noted. Father No problems noted. Social History Social History Household Members: Unknown / Unable to assess Housing: Unknown / Unable to assess Do you presently have visiting nurse or other home services: No Alcohol intake: never Comment: 1:1 sitter Patient Tobacco Use Status: Tobacco use Unknown Smoked in Last 30 Days: No Use of substances other than those prescribed or required for medical reasons: No Advance Directives: Yes Advance Directives on File: Yes Advance Directives Date on File: 11/10/21 Current occupational status: retired Current occupation: Right Handed Physical Exam ED Vital Signs: Vital Signs - 24 hr 01/16/23 20:07 01/16/23 21:54 Temperature 98.7 F 98.1 F Pulse Rate 76 75 Respiratory Rate 24 H 15 Blood Pressure 149/82 H 166/76 H Pulse Oximetry 96 96 Oxygen Delivery Method Room Air Room Air BMI result Body Mass Index 22.6 Appearance: Alert.? Oriented X3.? No acute distress.? Head: Contusion noted on forehead above right eyebrow no laceration. Head normocephalic, atraumatic. Eyes: Pupils equal, round and reactive to light.?EOOMI pain free Neck: Normal inspection.? Neck supple.? CVS: Normal heart rate and rhythm.? Pulses normal.? Respiratory: No respiratory distress.? Breath sounds normal.? Abdomen: Soft and nontender. Skin: Skin warm and dry.? Normal skin color.? Normal skin turgor.?5 cm linear superficial abrasion to the abdomen. Extremities: No lower extremity edema.? No calf ttp. 5/5 strength to bilateral upper and lower extremities. Normal handgrip. Back: No midline tenderness, no C-spine tenderness, full range of motion, no CVA tenderness bilaterally. 5/5 strength of bilateral upper and lower extremities. 2+ DP, PT, brachial, radial, and ulnar pulses bilaterally. Neuro: Oriented X 3.? No motor deficit.? No sensory deficit. CN 2-12 intact Course Reevaluation(s) Reevaluation #1: CBC appears to be around patient's baseline within normocytic anemia. Unchanged. Chemistry low sodium however patient tolerating p.o. fluids no need for IV repletion at this time. Coags unremarkable. CT of head and cervical spine no acute intracranial abnormalities. Past are shell opacifications frontal sinuses. No acute findings in the cervical spine. Chest x-ray unremarkable. CT abdomen pelvis pending. Patient is requesting evaluation by physical therapy and case management he does live at home by himself and he thinks he is requiring increased resources at home and he is having a hard time caring for himself. Will put in orders for PT and case management. Time: 00:08 Reevaluation #2: CT abdomen pelvis no acute intra-abdominal process identified. Observation will be initiated at this time. Time: 00:22 Medical Decision Making Medical Decision Making [facility] Narrative: 77-year-old male presents after a fall at home. +Headstrike. -LOC. Not on thinners. PE: Contusion above right eyebrow. Likely mechanical fall, unlikely stroke, posterior stroke, hemorrhagic stroke, arrhythmia, [place]. unlikely traumatic injury to head, neck, chest, abdomen or pelvis. I do not suspect seizure, syncope, PE, ACS or dissection Plan: labs, imaging Differential Diagnosis Differential Diagnoses: The differential diagnosis associated with the presentation includes Likely mechanical fall, unlikely stroke, posterior stroke, hemorrhagic stroke, a-fib, [place]. unlikely traumatic injury to head, neck, chest, abdomen or pelvis. I do not suspect seizure, syncope, PE, ACS or dissection Admission/Observation Consideration of admission/observation: Escalation of care including admission/observation considered Lab Data [facility] Lab Attestation statement: I reviewed the patient's lab results. 01/16/23 20:14 01/16/23 20:14 Labs: Lab Results 01/16/23 Range/Units 20:14 WBC 6.5 (4.8-10.8) X10*3/uL RBC 3.61 L (4.60-5.80) X10*6/uL Hgb 11.1 L (14.0-18.0) g/dl Hct 32.3 L (42.0-52.0) % MCV 89.5 (80.0-98.0) fL MCH 30.7 (27.0-33.0) pg MCHC 34.4 (31.0-36.0) g/dl RDW 13.2 (11.0-16.0) % Plt Count 266 (160-400) X10*3/uL MPV 8.9 L (9.4-12.4) fL Immature Gran % (Auto) 0.3 (0.0-0.4) % Neut % (Auto) 63.6 (45-73) % Lymph % (Auto) 22.2 (20-40) % Meade % (Auto) 9.6 (2-11) % Eos % (Auto) 3.7 (0-4) % Baso % (Auto) 0.6 (0-2) % Lymph # (Auto) 1.5 (1.2-4.9) X10*3/uL Meade # (Auto) 0.6 (0.1-1.2) X10*3/uL Eos # (Auto) 0.2 (0.0-0.4) X10*3/uL Baso # (Auto) 0.0 (0.0-0.2) X10*3/uL Abs Immat Gran (auto) 0.02 (0.00-0.03) X10*3/uL Absolute Neuts (auto) 4.2 (2.0-8.3) x10*3/uL Absolute Nucleated RBC 0.000 (0.0-0.012) X10*3/uL Nucleated RBC % (auto) 0.0 (0.0-0.2) /100WBC PT 13.7 H (11.1-13.3) SEC INR 1.1 (0.9-1.1) Sodium 132 L (135-145) mmol/L Potassium 3.8 (3.3-5.1) mmol/L Chloride 100 (96-108) mmol/L Carbon Dioxide 21 L (22-29) mmol/L Anion Gap 15 (12-20) BUN 14 (9-16) mg/dL Creatinine 0.58 (0.5-1.4) mg/dL Estim Creat Clear Calc 106.3 Estimated GFR > 60 Random Glucose 99 (60-115) mg/dL Calcium 8.8 (8.4-10.2) mg/dL Magnesium 2.3 (1.6-2.6) mg/dL Total Bilirubin 0.9 (0.0-1.0) mg/dL AST 14 (5-37) U/L ALT 8 (0-40) U/L Alkaline Phosphatase 97 (39-117) U/L Total Protein 6.7 (6.5-8.0) g/dL Albumin 3.8 (3.5-5.0) g/dL Independent Interpretation I performed an independent interpretation of an: Plain X-Ray (XR/XR chest 1V IMPRESSION: Unremarkable examination. ) and CT Scan ( CT/CT head/brain wo IV con IMPRESSION: CT head: *No acute intracranial abnormalities. *Partial opacification of the frontal sinuses, with findings most pronounced on the left and scattered ethmoid air cell opacification. Findings may represent chronic sinusitis. CT cervical spine: *No acute abno) Interpretation: CT/CT abdomen pelvis wo IV con IMPRESSION: No acute intra-abdominal process identified. No significant change compared to prior. Fleischner guidelines were followed. Radiology Impression Discussion of test interpretation with radiology: I have reviewed the radiologist's reading. Chronic Conditions Patient?s care impacted by: Hypertension and Other (GERD, hypercholesterolemia) Discharge Plan Discharge Clinical Impression: Concussion without loss of consciousness, Fall, Contusion Patient Disposition: Still a Patient Prescriptions: No Action multivitamin [Daily Multi-Vitamin] Tablet 1 tab PO DAILY carvedilol 3.125 mg Tablet 3.125 mg PO BID Qty: 60 0RF Protocol: Hold for SBP/HR < HOLD for SBP < : 90 HOLD for HR < : 60 risperidone 0.5 mg Tablet 0.5 mg PO BID Qty: 60 0RF
--- NOTE | 2023-01-16 21:14 | PC.NURSE ---
Pt in c-collar. Failed attempt to urinate in the urinal. Condom cath placed. Pt tolerated well. Reports no pain at this time.
[2023-01-16 21:54] VITALS: BP 166/76; PULSE 75; RESP 15; TEMP 36.7; O2SAT 96
[2023-01-17 05:15] VITALS: BP 152/74; PULSE 78; RESP 14; TEMP 36.6; O2SAT 93
[2023-01-17 07:57] VITALS: BP 145/58; PULSE 66; RESP 18; TEMP 36.7; O2SAT 97
--- NOTE | 2023-01-17 08:30 | PC.NURSE ---
PT IS A/O X 2 NO SOB/JORGE NOTED SPEAKS IN FULL SENTENCES. AMB WITH 1 ASSIST TO THE BATHROOM AND BTB. PT DENIES ANY PAIN/DISC. NO EDEMA NOTED. BED ALARM ACTIVATED WHEN IN BED. PT AWARE OF PLAN OF CARE.
--- NOTE | 2023-01-17 08:41 | MHC.EDTECH ---
patient ambulated to the bathroom, tolerated well. patient had a BM and stated that he was very proud of it. he ate all his breakfast.
[2023-01-17 10:03] LABS: COVID-19 Test Negative (Negative); IDNOW Serial# 58CA691E
[2023-01-17 10:06] LABS: Appearance Urine Turbid; Color Urine Yellow; Glucose Urine UA Negative (Negative); Leukocyte Esterase Urine Large (3+) (Negative); Nitrite Urine Positive (Negative); PH 6.5 (5.0-9.0); UMIC TRIGGER UACC YES; Urine Blood Small (1+) (Negative); Urine Ketones Negative (Negative); Urine Protein Trace mg/dL (Neg-Trace)
[2023-01-17 10:23] LABS: Bacteria Urine 4+ (None Seen); Hyaline Casts Urine 0-2 /LPF (0-2); RBC Urine 0-2 /HPF (0-2); Squamous Epithelial Cell Urine 0-2 /HPF (0-2); UACC Culture Trigger YES; WBC Urine >50 /HPF (0-5)
--- NOTE | 2023-01-17 13:21 | MHC.EDTECH ---
patient ambulated to the bathroom, had BM X2. patient getting more of an unsteady gait as the day went on. he uses the walker.
[2023-01-17 13:33] VITALS: BP 141/61; PULSE 92; RESP 17; TEMP 36.4; O2SAT 98
--- NOTE | 2023-01-17 13:35 | PC.NURSE ---
PT IS VERY RESTLESS/AGITATED PACING THE HALLWAY AND IS REQUESTING TO CALL MY ROSALIND WHO OWNS [employer] IN [place] . AMB WITH WALKER WITH ONE ASSIST. PT AT THIS TIME CONTINUES TO HAVE IS RED SOCKS ON AND IS BEING CLOSELY AN OBSERVATION. PT IS REDIRECTABLE.
--- NOTE | 2023-01-17 15:04 | MHC.CM.ED ---
Received case management consult overnight. Patient came to the ER after a fall from his bed. Attempted to meet with patient in regards to discharge planning. Attempted to meet with patient in regards to discharge planning. Patient is currently confused. Spoke with patient's friend/HCP, Raul via telephone at [phone]. Patient lives alone. Patient is typically alert and oriented. He will get confused at time. Patient's bed is very old and the frame did break. Raul was at patient's home today and fixed it. Physical therapy is not available until tomorrow. Raul agreeable to patient staying in the ER to see what physical therapy recommends. Continue to monitor for d/c needs.
[2023-01-17] MEDS: OLANZapine 2.5 MG TABLET PO ×2 (15:21→18:30)
--- NOTE | 2023-01-17 15:47 | PC.NURSE ---
Patient was anxious pacing wouldn't sit down. He told me he was anxious then stated, I'm peeing myself ! I told him I would change him to please sit down. Changed him patient had a small soft bowel movement and urine filled brief. Medicated with Zyprexa started to calm down shortly after I cleaned him. Patient states he's afraid of the dark.
[2023-01-17] MEDS: cephALEXin 500 MG CAPSULE PO (18:30)
--- NOTE | 2023-01-17 18:48 | PC.NURSE ---
Post void residual bladder scan- 395's Tian ROE notified. Does not want a elder yet.
--- NOTE | 2023-01-17 18:53 | MHC.EDTECH ---
rn asked for a bladder scan to see if pt is retaining urine. pt has 395 both RN and provider notified
[2023-01-17 20:19] VITALS: BP 139/71; PULSE 98; RESP 18; TEMP 36.3; O2SAT 98
[2023-01-17] MEDS: Phenazopyridine HCL 200 MG TABLET PO (20:26)
--- NOTE | 2023-01-17 22:20 | MHC.EDTECH ---
pt was encouraged to drink fluids while pt eats a sandwich
--- NOTE | 2023-01-17 22:36 | PC.NURSE ---
Patient was straight cathed at 2130 urine output was 400cc's right after voiding.
--- NOTE | 2023-01-17 23:31 | MHC.EDTECH ---
This tech resumed care for the patient @ 2300. Patient is a little disoriented, He sat up and tried going to the chair, I was able to redirect him, get him back in bed and give him a warm blanket. Unable to shut off the light for him I put towels on the top of his exam curtain to help block some of the light. Patient is resting in bed and all set.
--- NOTE | 2023-01-18 00:06 | MHC.EDTECH ---
Patient confused. Telephone rang and he sat up and started yelling Answer it , and then stated I'm going to fall When this tech reached the patient, easily redirected back to bed without any incident.
[2023-01-18] MEDS: OLANZapine 2.5 MG TABLET PO ×2 (01:46→20:29)
--- NOTE | 2023-01-18 04:08 | PC.NURSE ---
This information writer assumed care of this Pt at 0300. Pt yelling Im wet and moving around in bed, Pt incontinent of urine, incontinent care provided x 2 assist. Buttock and upper inner left thigh red, barrier cream applied, Pt repositioned. Warm blanket given.
[2023-01-18 06:00] VITALS: BP 109/73; PULSE 71; RESP 16; TEMP 36.6; O2SAT 96
[2023-01-18] MEDS: cephALEXin 500 MG CAPSULE PO ×4 (08:29→20:29)
[2023-01-18] MEDS: Multivitamin TABLET 1 TAB PO (08:29)
--- NOTE | 2023-01-18 08:46 | MHC.EDTECH ---
PT asked to use bathroom. Assisted patient to bathroom with walker. PT unsteady. Up in recliner eating breakfast.
--- NOTE | 2023-01-18 08:54 | MHC.EDTECH ---
PT requesting to go back to bed. Resting comfortable at this time.
--- NOTE | 2023-01-18 10:02 | PC.NURSE ---
assumed care of pt at 0700. pt a&ox4, pleasant, calm, and cooperative. pt oob with walker and 1 assist to the bathroom. pt back to recliner and ate all of breakfast with assistance. pt medicated per apr. tolerated well. pt requested to go back to bed after breakfast because he was tired. pt assisted back to bed and is currently sleeping. rr even/unlabored. call marinelli within reach. plan of care ongoing.
[2023-01-18 11:11] VITALS: BP 109/73; PULSE 71; O2SAT 96
[2023-01-18 13:36] VITALS: TEMP 37.3
--- NOTE | 2023-01-18 13:36 | PC.NURSE ---
woke pt up and medicated per apr. pt very lethargic but able to finally wake up to eat lunch. pt felt warm to touch. rectal temp taken. 99.2.
--- NOTE | 2023-01-18 15:22 | MHC.CM.PN ---
Addendum entered by Carmen Colunga 01/18/23 15:35: PT NOW SAYING HE DOES NOT FEEL READY TO GO HOME HE SAYS HE WANTS TO GO TO [facility] WHERE [place] WENT [place] CM EXPLAINED AGAIN STR WOULD NOT BE COVERED BY INSURANCE A REFERRAL WAS MADE TO ACUTE REHABS TO SEE IF PT COULD QUALIFY Original Note: PT HAD A PT EVAL WHICH RECOMMENDED STR CM CALLED PTS HCP, AMMON [phone] HE REPORTS THE PT WILL LIKELY NOT AGREE TO GO TO A SNF HE SAYS THE PT DOES BETTER AT HOME AND FELL BECAUSE HIS BED BROKE, NOT DUE TO BEING UNSTEADY HE REPORTS HE WOULD BE AGREEABLE TO PT GOING HOME WITH SERVICES ALTHOUGH HE SAYS HE IS UNSURE IF THE PT WOULD ACCEPT SERVICES AMMON SAYS HE WOULD NOT BE ABLE TO TRANSPORT PT BUT PTS FRIEND PIC WOULD AND PT HAS THE NUMBER CM MET WITH PT WHO CONFIRMS HE IS NOT INTERESTED IN GOING TO A SNF HE SAYS HE IS AGREEABLE TO VNA A REFERRAL TO [facility] HE REPORTS 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
--- NOTE | 2023-01-18 15:48 | MHC.EDTECH ---
Brought patient a cup of ice water.
--- NOTE | 2023-01-18 16:16 | MHC.CM.ED ---
ACUTE REHAB FACILITIES STATE THAT PATIENT DOPES NOT QUALIFY FOR THAT LEVEL OF CARE.
--- NOTE | 2023-01-18 17:57 | MHC.CM.ED ---
CM met with patient with regards to discharge planning. Patient again asked to go to [facility] for STR. CM explained to patient 3 times in course of conversation that his insurance will not pay for STR, as he does not have a qualifying stay. Pt does not have funds to private pay. Pt does not have a PCP, so VNA services cannot be arranged. Acute rehab has denied admission. Pt lives alone and has no one to care for him. Pt is quite concerned about if his bed has been repaired. Unable to arrange a safe discharge tonight. Pt to remain in ED overnight.
--- NOTE | 2023-01-18 19:07 | PC.NURSE ---
Assumed patient care at 1500- Patient alert and oriented x3, forgetful. Patient fixated on discharge plan, calling staff multiple times to review plan. Case management spoke with patient to clarify plan. Patient denies pain. Ate 100% of dinner. Ambualted to bathroom 1 assist with walker, voided. IV flushed, PO antibiotic given per EMAR. All needs met.
[2023-01-18 20:15] VITALS: BP 160/75; PULSE 74; RESP 16; TEMP 36.2; O2SAT 95
[2023-01-19 05:31] VITALS: BP 154/60; PULSE 72; RESP 16; TEMP 36.5; O2SAT 96
--- NOTE | 2023-01-19 06:42 | PC.NURSE ---
Patient intermittently restless throughout night. Compliant with meds. Resting at present.
[2023-01-19] MEDS: Multivitamin TABLET 1 TAB PO (07:59)
[2023-01-19] MEDS: cephALEXin 500 MG CAPSULE PO ×2 (07:59→13:33)
[2023-01-19 09:09] VITALS: BP 138/91; PULSE 90; RESP 16; TEMP 36; O2SAT 95
--- NOTE | 2023-01-19 11:04 | PC.NURSE ---
pt given breakfast. a.m. care done by ASSISTANT DIRECTOR OF PUBLIC WORKS, pt sitting up in recliner at this time.
--- NOTE | 2023-01-19 11:16 | MHC.CM.ED ---
Addendum entered by Heather Bolton 01/19/23 12:06: [facility] is able to accept patient. Patient agreeable. Original Note: Patient remains in ER overflow. T/W spoke with Dr Jamar England's office. Patient is active with their office. Met with patient. Patient feels he can safely go home. Agreeable to VNA. Spoke with patient's friend/HCP, Daquan, via telephone at [phone]. Daquan agreeable to patient returning home. But patient will not be able to get into his vehicle. T/W spoke with friend, Pic, via telephone at [phone]. Pic or his son [place] [facility] [place] 2[place] to transport patient home. Pic is on his way to patient's home right now to replace patient's bed. Patient, Natali DAVILA and Juli ROE aware. Continue to monitor for d/c needs.
--- NOTE | 2023-01-19 14:24 | PC.NURSE ---
Pt d/c home with family- rx given for abx
== END 2023-01-19 14:24 | disposition still patient (30) ==
PROVIDERS: Physician Assistant; Emergency Provider Internal Medicine; PCP Internal Medicine
DX: S00.11XA Contusion of right eyelid and periocular area, initial encounter (principal); S06.0X0A Concussion without loss of consciousness, initial encounter; W06.XXXA Fall from bed, initial encounter; Y93.89 Activity, other specified; Y92.9 Unspecified place or not applicable; Y99.9 Unspecified external cause status; R10.9 Unspecified abdominal pain; M54.2 Cervicalgia; I10 Essential (primary) hypertension; E78.00 Pure hypercholesterolemia, unspecified; Z11.52 Encounter for screening for COVID-19; Z85.038 Personal history of other malignant neoplasm of large intestine; Z85.46 Personal history of malignant neoplasm of prostate
CPT/HCPCS: 36415; 70450; 71045; 72125; 74176; 80053; 81001; 83735; 85025; 85610; 87086; 87088; 87186; 87635; 97161; 99285

== ENCOUNTER 2023-03-22 12:21 | Outpatient (REF) | payer MEDICARE, SELFPAY ==
[2023-03-22 13:20] LABS: MANUAL DIFF FLAG NO
[2023-03-22 13:31] LABS: Basophils Percent Auto 0.5 % (0-2); Eosinophils Absolute Auto 0.3 X10*3/uL (0.0-0.4); Eosinophils Percent Auto 3.9 % (0-4); Hematocrit 37.7 % (42.0-52.0); Hemoglobin 12.4 g/dl (14.0-18.0); Imm Gran Abs Auto 0.01 X10*3/uL (0.00-0.03); Imm Gran Pct Auto 0.2 % (0.0-0.4); Lymphocytes Absolute Auto 1.4 X10*3/uL (1.2-4.9); Lymphocytes Percent Auto 21.4 % (20-40); Mean Corpuscular HGB Conc 32.9 g/dl (31.0-36.0); Mean Corpuscular Hemoglobin 29.8 pg (27.0-33.0); Mean Corpuscular Volume 90.6 fL (80.0-98.0); Monocytes Absolute Auto 0.7 X10*3/uL (0.1-1.2); Monocytes Percent Auto 10.9 % (2-11); Neutrophils Percent Auto 63.1 % (45-73); Platelet Count 293 X10*3/uL (160-400); Red Blood Count 4.16 X10*6/uL (4.60-5.80); Red Cell Distribution Width 12.9 % (11.0-16.0); White Blood Count 6.4 X10*3/uL (4.8-10.8)
[2023-03-22 13:48] LABS: Alanine Aminotransferase 8 U/L (0-40); Alkaline Phosphatase 111 U/L (39-117); Anion Gap 12 (12-20); Aspartate Amino Transferase 13 U/L (5-37); Bilirubin Total 0.9 mg/dL (0.0-1.0); Blood Urea Nitrogen 15 mg/dL (9-16); Carbon Dioxide 25 mmol/L (22-29); Chloride 103 mmol/L (96-108); Estimated Glomerular Filt Rate > 60; Glucose Random 112 mg/dL (60-115); Potassium 4.3 mmol/L (3.3-5.1); Sodium 136 mmol/L (135-145)
[2023-03-22 13:55] LABS: Thyroid Stimulating Hormone 0.92 uIU/mL (0.32-4.0)
[2023-03-22 17:07] LABS: Folate 8.1 ng/mL (> or = 4.0)
[2023-03-23 02:59] LABS: Vitamin B12 278 pg/mL (200-900)
== END 2023-03-22 12:22 | disposition home or self-care (01) ==
LOC: HO.10HDL 12:21
PROVIDERS: Visit Provider Internal Medicine
DX: R53.83 Other fatigue (principal); R06.02 Shortness of breath; M19.90 Unspecified osteoarthritis, unspecified site; Z91.81 History of falling; D64.9 Anemia, unspecified
CPT/HCPCS: 36415; 80053; 82607; 82746; 84443; 85025

== ENCOUNTER 2023-05-04 15:02 | Outpatient (REF) | payer MEDICARE, SELFPAY ==
[2023-05-04 15:25] LABS: MANUAL DIFF FLAG NO
[2023-05-04 16:06] LABS: Basophils Percent Auto 0.6 % (0-2); Eosinophils Absolute Auto 0.3 X10*3/uL (0.0-0.4); Eosinophils Percent Auto 4.6 % (0-4); Hematocrit 34.4 % (42.0-52.0); Hemoglobin 11.7 g/dl (14.0-18.0); Imm Gran Abs Auto 0.01 X10*3/uL (0.00-0.03); Imm Gran Pct Auto 0.1 % (0.0-0.4); Lymphocytes Absolute Auto 1.5 X10*3/uL (1.2-4.9); Lymphocytes Percent Auto 22.3 % (20-40); Mean Corpuscular Hemoglobin 30.5 pg (27.0-33.0); Mean Corpuscular Volume 89.6 fL (80.0-98.0); Mean Platelet Volume 9.6 fL (9.4-12.4); Monocytes Absolute Auto 0.7 X10*3/uL (0.1-1.2); Monocytes Percent Auto 9.8 % (2-11); Neutrophils Absolute Auto 4.2 x10*3/uL (2.0-8.3); Neutrophils Percent Auto 62.6 % (45-73); Platelet Count 256 X10*3/uL (160-400); Red Blood Count 3.84 X10*6/uL (4.60-5.80); Red Cell Distribution Width 13.2 % (11.0-16.0); White Blood Count 6.7 X10*3/uL (4.8-10.8)
[2023-05-04 16:37] LABS: Iron 139 mcg/dL (45-160); Percent Iron Saturation 54 % (15-50); Total Iron Binding Capacity 258 mcg/dL (228-428); Unsaturated Iron Binding 119 ug/dL
== END 2023-05-04 15:03 | disposition home or self-care (01) ==
LOC: HO.LAB 15:02
PROVIDERS: PCP Internal Medicine; Visit Provider Internal Medicine
DX: D64.9 Anemia, unspecified (principal); Z85.038 Personal history of other malignant neoplasm of large intestine
CPT/HCPCS: 36415; 82378; 83540; 85025

== ENCOUNTER 2023-05-07 12:25 | Emergency (ER) | payer MEDICARE, SELFPAY ==
--- NOTE | ~2023-05-07 | CT_ITS ---
EXAMINATION: CT HEAD WITHOUT CONTRAST CLINICAL INFORMATION: Fall COMPARISON: Previous head CT January 2023 TECHNIQUE: Contiguous axial imaging was performed from the skull base to vertex without intravenous administration of contrast. This CT examination was performed using dose optimization techniques as appropriate, variously including the following: *Automated exposure control *Adjustment of mA and/or kV according to patient size (this includes techniques or standardized protocols for targeted exams where dose is matched to indication/reason for exam; i.e. extremities or head) *Use of iterative reconstruction technique DLP: 735 mGy-cm FINDINGS: There is no evidence of an extra-axial collection. There is no evidence of intra or extra-axial hemorrhage. The ventricles and extra-axial CSF spaces are prominent suggestive of generalized atrophy. There is nonspecific periventricular white matter disease. There is an old left basal ganglia lacunar infarct that appears unchanged. No mass, mass effect or acute infarct is seen. No skull fracture. Bilateral frontal ethmoid and maxillary sinus disease. Degenerative changes at the temporomandibular joints. CT/CT head/brain wo IV con IMPRESSION: No acute findings. Generalized atrophy, nonspecific periventricular white matter disease and old left basal ganglia lacunar infarct.
--- NOTE | ~2023-05-07 | CT_ITS ---
EXAMINATION: CT CERVICAL SPINE WITHOUT CONTRAST CLINICAL INFORMATION: Fall COMPARISON: Previous cervical spine CT most recent January 2023 TECHNIQUE: Axial images through the cervical spine without IV contrast. Sagittal and coronal reconstructions on the technologist workstation were performed. This CT examination was performed using dose optimization techniques as appropriate, variously including the following: *Automated exposure control *Adjustment of mA and/or kV according to patient size (this includes techniques or standardized protocols for targeted exams where dose is matched to indication/reason for exam; i.e. extremities or head) *Use of iterative reconstruction technique DLP: 439 mGy-cm FINDINGS: Mild anterior subluxation of C7 with respect to T1 measuring 3 mm similar to previous exam. Bone alignment is otherwise normal. No fracture or dislocation. Multilevel degenerative spondylosis and degenerative disc disease greatest at C3-4 C5-6 and C6-7. Bilateral multilevel facet arthritis. Degenerative changes at the C1 dens articulation. Prevertebral soft tissues are normal. Bilateral carotid calcification. Visualized lung apices are clear. CT/CT cervical spine wo IV con IMPRESSION: Severe degenerative changes. No fracture or dislocation. Fleischner guidelines were followed.
--- NOTE | ~2023-05-07 | XR_ITS ---
EXAMINATION: XR SHOULDER, LEFT CLINICAL INFORMATION: Fall, unable to move shoulder. COMPARISON: Chest radiograph 01/16/2023. TECHNIQUE: Two views of the left shoulder. FINDINGS: Advanced degenerative changes of the left shoulder with severe joint space narrowing leading to [id number] contact of the humeral head with respect to the glenoid, subcortical sclerosis, subchondral cystic changes and bony productive changes, all of which limits evaluation of underlying fractures. An irregularity projecting over the greater tuberosity appears to be stable compared to 01/16/2023. Decreased acromiohumeral interval suggesting rotator cuff disease. Mild degenerative arthrosis of the acromioclavicular joint. Age indeterminate mildly displaced deformity of the left anterior fourth rib. XR/XR shoulder LT min 2V IMPRESSION: 1. 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 This could limit visualization of subtle fractures, further evaluation with a CT of the left shoulder without IV contrast could be obtained as clinically indicated. 2. Age-indeterminate mildly displaced fracture of the left anterior fourth rib. Correlate for point tenderness. 3. Chronic irregularity of the greater tuberosity. 4. Decreased acromiohumeral interval suggesting rotator cuff disease.
[2023-05-07 12:58] VITALS: BP 122/66; PULSE 90; RESP 17; TEMP 36.7; O2SAT 96; BMI 24.2
--- NOTE | 2023-05-07 13:00 | ECG_ITS ---
Test Reason : FALL Blood Pressure : / mmHG Vent. Rate : 078 BPM Atrial Rate : 078 BPM P-R Int : 156 ms QRS Dur : 088 ms QT Int : 374 ms P-R-T Axes : 037 065 056 degrees QTc Int : 426 ms Normal sinus rhythm Septal infarct (cited on or before 08-FEB-2019) Abnormal ECG When compared with ECG of 17-NOV-2022 19:37, No significant change was found Referred By: Nohemy Rodrigues Electronically Signed By:Brad Streeter
--- NOTE | 2023-05-07 13:03 | ED_ITS ---
HPI - Fall General Chief Complaint: Fall Stated Complaint: fall, bleeding ear Time Seen by Provider: 05/07/23 13:04 Source: patient and other (Friend) Mode of arrival: EMS Limitations: no limitations History of Present Illness HPI Narrative: 77-year-old male with a history of cognitive impairment, colon cancer, hypertension, GERD, high cholesterol, alcohol use disorder, prostate cancer, who lives at home alone, was found by his friend/a this morning with a significant laceration to his left ear from an unknown fall that occurred sometime overnight. The patient can not recall when he fell and has no complaints. Related Data Home Medications Medication Instructions Recorded Confirmed multivitamin (Daily Multi-Vitamin 1 tab PO DAILY 11/18/22 01/17/23 tablet) Previous Rx's Medication Instructions Recorded cephalexin 500 mg capsule 500 mg PO QID 5 days #20 caps 01/19/23 cephalexin 500 mg capsule 500 mg PO TID 7 days #21 caps 05/07/23 Allergies Allergy/AdvReac Type Severity Reaction Status Date / Time No Known Allergies Allergy Verified 05/07/23 12:57 [No Known Allergies*] Review of Systems 2 Review of Systems: Yes Other (Unreliable informant) [facility] Past Medical History Attestation statement: The following information was validated with the patient. [facility] Narrative: Social history: The patient does live alone but does have a friend/who checks in on him daily. Medical History Cognitive impairment COVID-19 virus infection Diverticular disease Colon cancer Overweight (BMI 25.0-29.9) Hypertension Knee osteoarthritis GERD (gastroesophageal reflux disease) Hypercholesterolemia Alcohol abuse Prostate cancer Arthritis of knee Surgical History History of surgery H/O umbilical hernia repair H/O right hemicolectomy History of total right hip arthroplasty History of total right knee replacement History of total left knee replacement Family History Family History Mother No problems noted. Father No problems noted. Social History Social History Household Members: Unknown / Unable to assess Housing: Unknown / Unable to assess Do you presently have visiting nurse or other home services: No Alcohol intake: former Comment: 1:1 sitter Patient Tobacco Use Status: Tobacco use Unknown Smoked in Last 30 Days: No Use of substances other than those prescribed or required for medical reasons: No Advance Directives: Yes Advance Directives on File: Yes Advance Directives Date on File: 11/10/21 Current occupational status: retired Current occupation: Right Handed Physical Exam 2 Vital Signs: Vital Signs: Last Vital Signs Temp 98.0 F 05/07/23 12:58 Pulse 90 05/07/23 14:22 Resp 18 05/07/23 14:22 BP 127/62 05/07/23 14:22 Pulse Ox 96 05/07/23 12:58 O2 Del Method Room Air 05/07/23 12:58 BMI result Body Mass Index 24.2 Vital signs were normal Exam: General: Awake, alert in no distress Head: Normocephalic, atraumatic EENT: PERRL, Lids normal, sclera normal, conjunctiva normal, nose normal , ears: 5 cm laceration to the left ear, dry crusted blood, throat without erythema or exudates Neck: Supple, no adenopathy Lung: breath sounds symmetric, no wheezing, rales or rhonchi Chest: symmetric movement, nontender Heart: regular rate and rhythm, normal S1, S2 no murmurs or rubs Abdomen: soft, non-tender, nondistended, normal bowel sounds Back: no vertebral tenderness, no CVAT Extremities: no deformities, moves all extremities symmetrically Neuro: Awake, alert, oriented, normal speech, cranial nerves intact, moves all extremities symmetrically, patient was able to walk to the bathroom with the minimal assistance Psych: Pleasant, cooperative Course Course Course Narrative: This is an RME: Additional HPI, ROS, PE not included below will be deferred to primary provider. Patient is a 77-year-old male presents emergency department with a friend for evaluation. Reportedly had a fall ? This morning. He lives alone. He has a poor historian surrounding these events. Does not know why he fell or where he fell. Has a significant laceration to the left ear. His friend assists him with ADLs, and presented to his home today and noticed the injury this prompting bringing him to the emergency department. Plan: Labs, EKG, CT, orthostatic vital signs Medications Administered Discontinued Medications Generic Name Dose Route Start Last Admin Trade Name Emily PRN Reason Stop Dose Admin Bacitracin 1 appl 05/07/23 16:43 05/07/23 16:50 Bacitracin Oint 0.9 Gm Packet TOPICAL 05/07/23 16:44 1 appl ONCE ONE Administration Protocol Cephalexin HCl 500 mg 05/07/23 16:31 05/07/23 16:49 Cephalexin 500 Mg Capsule PO 05/07/23 16:32 500 mg ONCE ONE Administration Lidocaine HCl 5 ml 05/07/23 13:26 05/07/23 13:48 Lidocaine Hcl 1 % Mpf 5 Ml Vial INFILTRATI 05/07/23 13:27 5 ml ONCE STA Administration Lidocaine HCl 5 ml 05/07/23 13:26 05/07/23 13:48 Lidocaine Hcl 1 % Mpf 5 Ml Vial INFILTRATI 05/07/23 13:27 5 ml ONCE STA Administration Procedures Laceration Laceration 1: Site: other (ear) Side (If applicable): left Size (cm): 5 Description: flap and irregular Depth: simple, single layer Local Anesthetic: lidocaine 1% Amount of anesthesia used (mL): 10 Pre-repair: wound explored, irrigated extensively and deep structures intact Skin layer closed with: nylon Size (cm): 5-0 Number of sutures: 14 Technique: simple, interrupted Medical Decision Making Medical Decision Making MDM Narrative: 77-year-old male with a history of cognitive impairment, colon cancer, hypertension, GERD, high cholesterol, alcohol use disorder, prostate cancer, who lives at home alone, was found by his friend/a this morning with a significant laceration to his left ear from an unknown fall that occurred sometime overnight. The patient can not recall when he fell and has no complaints. Vital signs were normal. The patient did have a significant left ear laceration which required repair. Please see the procedure note. Differential diagnosis: ?Includes but is not limited to skull fracture, intracranial bleed, electrolyte abnormalities, anemia Following evaluation was ordered: CBC, CMP, PT/INR, troponin, CT scan of the head and cervical spine without IV contrast, EKG Course: 16:56 My interpretation patient's laboratory evaluation as follows: Mild anemia with an H&H of 11.6 and 34. Low sodium 130. Elevated glucose 125. Elevated bilirubin 1.6-laboratory evaluation is noncontributory and does not explain his fall. CT scan of the patient's head and cervical spine revealed no acute fractures or bleeding in the brain. This time I suspect the patient mechanical fall at home and did injure his ear. The your laceration was repaired by the ED physician transport assistant, Melodie Rivera, please see her note Bacitracin was applied to the wound the patient was started on Keflex 500 mg 3 times a day prophylactically to try to prevent infection of his ear. The wound was covered with bacitracin Patient was given printed and verbal instructions in the sutures should be removed in 10-14 days. Admission/Observation Consideration of admission/observation: Escalation of care including admission/observation considered Lab Data MDM Lab Attestation statement: I reviewed the patient's lab results. 05/07/23 13:34 05/07/23 13:34 Labs: Lab Results 05/07/23 Range/Units 13:34 WBC 7.5 (4.8-10.8) X10*3/uL RBC 3.77 L (4.60-5.80) X10*6/uL Hgb 11.6 L (14.0-18.0) g/dl Hct 34.1 L (42.0-52.0) % MCV 90.5 (80.0-98.0) fL MCH 30.8 (27.0-33.0) pg MCHC 34.0 (31.0-36.0) g/dl RDW 13.1 (11.0-16.0) % Plt Count 218 (160-400) X10*3/uL MPV 8.9 L (9.4-12.4) fL Immature Gran % (Auto) 0.3 (0.0-0.4) % Neut % (Auto) 72.9 (45-73) % Lymph % (Auto) 15.4 L (20-40) % Ward % (Auto) 8.4 (2-11) % Eos % (Auto) 2.5 (0-4) % Baso % (Auto) 0.5 (0-2) % Lymph # (Auto) 1.2 (1.2-4.9) X10*3/uL Ward # (Auto) 0.6 (0.1-1.2) X10*3/uL Eos # (Auto) 0.2 (0.0-0.4) X10*3/uL Baso # (Auto) 0.0 (0.0-0.2) X10*3/uL Abs Immat Gran (auto) 0.02 (0.00-0.03) X10*3/uL Absolute Neuts (auto) 5.4 (2.0-8.3) x10*3/uL Absolute Nucleated RBC 0.000 (0.0-0.012) X10*3/uL Nucleated RBC % (auto) 0.0 (0.0-0.2) /100WBC PT 13.7 H (11.1-13.3) SEC INR 1.1 (0.9-1.1) Sodium 130 L (135-145) mmol/L Potassium 4.1 (3.3-5.1) mmol/L Chloride 100 (96-108) mmol/L Carbon Dioxide 24 (22-29) mmol/L Anion Gap 10 L (12-20) BUN 11 (9-16) mg/dL Creatinine 0.75 (0.5-1.4) mg/dL Estim Creat Clear Calc 73.2 Estimated GFR > 60 Random Glucose 125 H (60-115) mg/dL Calcium 8.9 (8.4-10.2) mg/dL Total Bilirubin 1.6 H (0.0-1.0) mg/dL AST 18 (5-37) U/L ALT 11 (0-40) U/L Alkaline Phosphatase 105 (39-117) U/L Troponin I High Sens 6.5 D (<3.5-35.0) ng/L Total Protein 6.7 (6.5-8.0) g/dL Albumin 3.9 (3.5-5.0) g/dL Independent Interpretation I performed an independent interpretation of an: EKG Interpretation: My interpretation of the patient's 12 EKG done at 13:44 hours is as follows: Baseline is erratic secondary to tremor and is difficult to interpret however patient is a sinus rhythm with a rate of 78 with normal SD, QRS and QTC intervals, there has no ST segment elevation, no ST segment depression, T-waves are peaked to V3 through V 5, no PACs, no PVCs. When compared to EKG dated 11/17/2022 there are no acute changes. Radiology Impression Discussion of test interpretation with radiology: I have reviewed the radiologist's reading. Radiologist Impression: CT head/brain wo IV con IMPRESSION: No acute findings. Generalized atrophy, nonspecific periventricular white matter disease and old left basal ganglia lacunar infarct. Dictated By: Scarlett Caldwell MD CT cervical spine wo IV con IMPRESSION: Severe degenerative changes. No fracture or dislocation. Fleischner guidelines were followed. Dictated By: Scarlett Caldwell MD Discharge Plan Discharge Clinical Impression: Fall Qualifiers: Encounter type: initial encounter Qualified Code(s): W19.XXXA - Unspecified fall, initial encounter Closed head injury Qualifiers: Encounter type: initial encounter Qualified Code(s): S09.90XA - Unspecified injury of head, initial encounter Laceration of ear Qualifiers: Encounter type: initial encounter Laterality: left Qualified Code(s): S01.312A - Laceration without foreign body of left ear, initial encounter Patient Disposition: Home, Self-Care Instructions: Laceration (ED) Additional Instructions: The CT scan of your head and neck did not reveal any skull fracture, bleeding in the brain or neck fracture which is reassuring. Your blood work was unremarkable Your left ear laceration was repaired with 14 stitches. The stitches need to stay in for 10-14 days and can be removed by your primary care doctor, in urgent care center or the emergency department. In order to try to prevent infection of your ear I am starting you on Keflex (cephalexin) 500 mg pills, take 1 pill 3 times a day for 7 days. You were given your 1st dose here in the emergency department. This was sent to your [facility] pharmacy beats treat Apply bacitracin to your twice a day until the stitches are removed. Follow the laceration instructions Follow-up with your doctor in 2 days. Please return to the emergency department if your symptoms get worse or if you develop any symptoms that are concerning to you. Prescriptions: New cephalexin 500 mg capsule 500 mg PO TID 7 Days Qty: 21 0RF No Action multivitamin [Daily Multi-Vitamin] Tablet 1 tab PO DAILY cephalexin 500 mg capsule 500 mg PO QID 5 Days Qty: 20 0RF
[2023-05-07 13:39] LABS: MANUAL DIFF FLAG NO
[2023-05-07 13:40] LABS: Basophils Percent Auto 0.5 % (0-2); Eosinophils Absolute Auto 0.2 X10*3/uL (0.0-0.4); Eosinophils Percent Auto 2.5 % (0-4); Hematocrit 34.1 % (42.0-52.0); Hemoglobin 11.6 g/dl (14.0-18.0); Imm Gran Abs Auto 0.02 X10*3/uL (0.00-0.03); Imm Gran Pct Auto 0.3 % (0.0-0.4); Lymphocytes Absolute Auto 1.2 X10*3/uL (1.2-4.9); Lymphocytes Percent Auto 15.4 % (20-40); Mean Corpuscular Hemoglobin 30.8 pg (27.0-33.0); Mean Corpuscular Volume 90.5 fL (80.0-98.0); Mean Platelet Volume 8.9 fL (9.4-12.4); Monocytes Absolute Auto 0.6 X10*3/uL (0.1-1.2); Monocytes Percent Auto 8.4 % (2-11); Neutrophils Absolute Auto 5.4 x10*3/uL (2.0-8.3); Neutrophils Percent Auto 72.9 % (45-73); Platelet Count 218 X10*3/uL (160-400); Red Blood Count 3.77 X10*6/uL (4.60-5.80); Red Cell Distribution Width 13.1 % (11.0-16.0); White Blood Count 7.5 X10*3/uL (4.8-10.8)
[2023-05-07] MEDS: Lidocaine HCl 1 % MPF 5 ML VIAL INFILTRATI ×2 (13:48)
[2023-05-07 13:50] LABS: INTERNATIONAL NORM RATIO 1.1 (0.9-1.1); Prothrombin Time 13.7 SEC (11.1-13.3)
[2023-05-07 14:03] LABS: Alanine Aminotransferase 11 U/L (0-40); Albumin Level 3.9 g/dL (3.5-5.0); Alkaline Phosphatase 105 U/L (39-117); Anion Gap 10 (12-20); Aspartate Amino Transferase 18 U/L (5-37); Bilirubin Total 1.6 mg/dL (0.0-1.0); Blood Urea Nitrogen 11 mg/dL (9-16); Calcium 8.9 mg/dL (8.4-10.2); Carbon Dioxide 24 mmol/L (22-29); Chloride 100 mmol/L (96-108); Creatinine Clr Calc Pharmacy 73.2; Estimated Glomerular Filt Rate > 60; Glucose Random 125 mg/dL (60-115); Potassium 4.1 mmol/L (3.3-5.1); Sodium 130 mmol/L (135-145); Total Protein 6.7 g/dL (6.5-8.0)
[2023-05-07 14:10] LABS: Troponin-I High Sensitivity 6.5 ng/L (<3.5-35.0)
[2023-05-07 14:17] VITALS: BP 173/80; PULSE 75
[2023-05-07 14:19] VITALS: BP 167/79; PULSE 74
[2023-05-07 14:20] VITALS: BP 127/62; PULSE 90
[2023-05-07 14:22] VITALS: BP 127/62; PULSE 90; RESP 18
[2023-05-07] MEDS: cephALEXin 500 MG CAPSULE PO (16:49)
[2023-05-07] MEDS: Bacitracin Oint 0.9 GM PACKET 1 APPL TOPICAL (16:50)
[2023-05-07 17:22] VITALS: BP 128/70; PULSE 97; RESP 18; TEMP 36.4; O2SAT 96
== END 2023-05-07 17:23 | disposition home or self-care (01) ==
PROVIDERS: Nurse Practitioner Family; Emergency Provider Emergency Medicine Emergency Medical Services; PCP Internal Medicine
DX: S01.312A Laceration without foreign body of left ear, initial encounter (principal); S09.90XA Unspecified injury of head, initial encounter; M54.2 Cervicalgia; R51.9 Headache, unspecified; M25.512 Pain in left shoulder; W18.30XA Fall on same level, unspecified, initial encounter; Y93.9 Activity, unspecified; Y92.9 Unspecified place or not applicable; Y99.8 Other external cause status; Z79.899 Other long term (current) drug therapy
CPT/HCPCS: 12052; 36415; 70450; 72125; 73030; 80053; 84484; 85025; 85610; 93005; 99284

== ENCOUNTER → 2023-05-07 13:00 | Outpatient (BNV) | payer MEDICARE, SELFPAY | PROVIDERS: Emergency Provider Emergency Medicine Emergency Medical Services; PCP Internal Medicine; Visit Provider Internal Medicine Cardiovascular Disease | DX: R94.31 Abnormal electrocardiogram [ECG] [EKG] (principal) | CPT/HCPCS: 93010 ==

== ENCOUNTER 2023-05-09 11:25 | Inpatient (IN) | payer MEDICARE, SELFPAY ==
--- NOTE | ~2023-05-09 | CT_ITS ---
EXAMINATION: CT HEAD WITHOUT CONTRAST CLINICAL INFORMATION: Altered mental status COMPARISON: CT head from 05/07/2023 TECHNIQUE: Contiguous axial imaging was performed from the skull base to vertex without intravenous administration of contrast. This CT examination was performed using dose optimization techniques as appropriate, variously including the following: *Automated exposure control *Adjustment of mA and/or kV according to patient size (this includes techniques or standardized protocols for targeted exams where dose is matched to indication/reason for exam; i.e. extremities or head) *Use of iterative reconstruction technique DLP: 730 mGy-cm FINDINGS: There is no evidence of acute intracranial hemorrhage or territorial infarction. Chronic white matter small vessel ischemic changes. Cerebral atrophy with commensurate ventricular changes. Chronic lacunar infarct left basal ganglia. No abnormal mass effect or midline shift is seen. [place] to white matter differentiation is well preserved. No extra-axial fluid collections are identified. There is no abnormal attenuation within the brain parenchyma. The osseous structures and soft tissues are normal. Mucoperiosteal thickening of the bilateral maxillary, ethmoid, sphenoid, and frontal sinuses. The mastoid air cells are well aerated. CT/CT head/brain wo IV con IMPRESSION: 1. No acute intracranial pathology. 2. Chronic white matter small vessel ischemic changes. 3. Cerebral atrophy with commensurate ventricular changes. 4. Chronic lacunar infarct left basal ganglia. 5. Mucoperiosteal thickening of the bilateral maxillary, ethmoid, sphenoid, and frontal sinuses.
[2023-05-09 11:43] VITALS: BP 104/68; PULSE 83; RESP 16; TEMP 36.9; O2SAT 94; BMI 26.4
--- NOTE | 2023-05-09 12:18 | ED_ITS ---
HPI - General Adult General Chief complaint: General Medical Stated complaint: FAILURE TO THRIVE Time Seen by Provider: 05/09/23 12:18 Source: patient, EMS and old records reviewed Limitations: no limitations History of Present Illness HPI narrative: 77 yo male with history of GERD, OA, HLD, recent fall w/ large left ear lac s/p repair here on 05/06 presents back to the ER from home via EMS for evaluation after he was found to be confused at home. Friend had been calling him and he was not answering the phone. His friend calls 911 for a wellness check. EMS states the patient was anxious and confused at home. Friend reported his mental status seemed to be at his baseline but EMS was not comfortable leaving him home alone so he was brought into the ER for evaluation Patient reports he is mad at his friend for calling 911. He states he is constipated and has not had a BM in 2 days. No N/V or abdominal pain. He has no physical complaints. He arrives with dried blood and swelling on the left ear that he says is not painful. MD complaint: wellness check, possible confusion Onset (ago): unknown Associated symptoms: denies other symptoms Treatments prior to arrival: none Related Data Home Medications Medication Instructions Recorded Confirmed multivitamin (Daily Multi-Vitamin 1 tab PO DAILY 11/18/22 01/17/23 tablet) Previous Rx's Medication Instructions Recorded cephalexin 500 mg capsule 500 mg PO QID 5 days #20 caps 01/19/23 cephalexin 500 mg capsule 500 mg PO TID 7 days #21 caps 05/07/23 Allergies Allergy/AdvReac Type Severity Reaction Status Date / Time No Known Allergies Allergy Verified 05/07/23 12:57 [No Known Allergies*] Review of Systems 2 Review of Systems: Yes all other systems are reviewed and are negative [facility] Past Medical History Medical History Cognitive impairment COVID-19 virus infection Diverticular disease Colon cancer Overweight (BMI 25.0-29.9) Hypertension Knee osteoarthritis GERD (gastroesophageal reflux disease) Hypercholesterolemia Alcohol abuse Prostate cancer Arthritis of knee Surgical History History of surgery H/O umbilical hernia repair H/O right hemicolectomy History of total right hip arthroplasty History of total right knee replacement History of total left knee replacement Family History Family History Mother No problems noted. Father No problems noted. Social History Social History Household Members: Unknown / Unable to assess Housing: Unknown / Unable to assess Do you presently have visiting nurse or other home services: No Alcohol intake: former Comment: 1:1 sitter Patient Tobacco Use Status: Tobacco use Unknown Advance Directives: Yes Advance Directives on File: Yes Advance Directives Date on File: 11/10/21 Current occupational status: retired Current occupation: Right Handed Physical Exam ED Vital Signs: Vital Signs - 24 hr 05/09/23 11:43 05/09/23 17:09 05/09/23 17:33 Temperature 98.4 F Pulse Rate 83 95 Respiratory Rate 16 20 16 Blood Pressure 104/68 Pulse Oximetry 94 97 Oxygen Delivery Method Room Air Room Air 05/09/23 19:04 05/10/23 06:45 Temperature 98.2 F Pulse Rate 97 96 Respiratory Rate 18 18 Blood Pressure 156/70 H 179/83 H Pulse Oximetry 97 96 Oxygen Delivery Method Room Air Room Air BMI result Body Mass Index 26.4 Appearance: Alert elderly male. Oriented X3. No acute distress. Head: normocephalic, atraumatic. Eyes: Pupils equal, round and reactive to light. ENT: Left ear with a large hematoma of the pinna, dried blood and multiple sutures in place. Pharynx normal. No tonsillar swelling or exudate. Neck: Normal inspection. Neck supple. CVS: Normal heart rate and rhythm. Pulses normal. Respiratory: No respiratory distress. Breath sounds normal. Abdomen: Soft and nontender. +BS x4 Skin: Skin warm and dry. Normal skin color. Normal skin turgor. No rashes. Extremities: No lower extremity edema. No joint swelling. Superficial abrasions to the left upper extremity. Neuro/psych: Oriented X 3. No motor deficit. No sensory deficit. CN II-XII intact. intermittent agitation and yelling out Course Course Course Narrative: 0706 05/10/23: Vital signs have remained stable overnight. Per nursing notes, patient agitated and restless overnight however improved after being medicated. Med reconciliation not yet completed however will continue to monitor. Physician observation continued pending CM/ disposition. Medications Administered Discontinued Medications Generic Name Dose Route Start Last Admin Trade Name Emily PRN Reason Stop Dose Admin Diphenhydramine HCl 50 mg 05/09/23 21:55 05/09/23 22:35 Diphenhydramine Hcl 25 Mg Capsule PO 05/09/23 21:56 50 mg ONCE ONE Administration Lidocaine HCl 1 appl 05/09/23 13:06 05/09/23 14:17 Lidocaine 4 % Cream Kit TOPICAL 05/09/23 13:07 1 appl ONCE ONE Administration Protocol Lorazepam 1 mg 05/09/23 21:55 05/09/23 22:40 Lorazepam 1 Mg Tablet PO 05/09/23 21:56 1 mg ONCE ONE Administration Olanzapine 5 mg 05/09/23 15:16 05/09/23 15:23 Olanzapine Odt 10 Mg Tab.Rapdis TRANSLINGU 05/09/23 15:17 5 mg ONCE ONE Administration Olanzapine 5 mg 05/09/23 16:05 05/09/23 16:40 Olanzapine Odt 10 Mg Tab.Rapdis TRANSLINGU 05/09/23 16:06 5 mg ONCE ONE Administration Olanzapine 10 mg 05/09/23 22:54 05/09/23 23:00 Olanzapine Odt 10 Mg Tab.Rapdis TRANSLINGU 05/09/23 22:55 10 mg ONCE ONE Administration Procedures Procedure Narrative Procedure Narrative: Left auricular hematoma was drained with an 18 gauge needle, yielding 2.5 cc of dark red blood. Area was prepped in a usual sterile fashion with Betadine. Dry sterile dressing with compression was applied to the head after the procedure. Patient tolerated well. Medical Decision Making Medical Decision Making MDM Narrative: 77-year-old male presenting to the ER for evaluation of anxiety and possible confusion. Patient's appeals representative teja reports his mental status seems to be at baseline however the fact that he was not answering his phone is not baseline behavior for him. The patient does not feel he is safe to be at home alone. He feels like he needs increased care at home. He feels weak and has been having difficulty ambulating. He is supposed to use a walker but has not been compliant. Medical workup was unremarkable. No evidence of UTI or acute metabolic derangement. His hematoma of the left ear was drained successfully. Compression dressing applied. Developed acute agitation and was treated with olanzapine with good effect. Will monitor for alcohol withdrawal. Patient would like to be seen by Physical therapy and have case management consult for additional services at home verses placement to acute rehab. Will place patient physician observation. Will continue to monitor. Differential Diagnosis Differential Diagnoses: The differential diagnosis associated with the presentation includes delirium, dementia, UTI, cognitive disorder, viral illness, anxiety, psych illness, acute on chronic hyponatremia, dehydration Admission/Observation Consideration of admission/observation: Escalation of care including admission/observation considered Lab Data MDM Lab Attestation statement: I reviewed the patient's lab results. 05/09/23 12:25 05/09/23 12:25 Labs: Lab Results 05/09/23 05/09/23 Range/Units 12:25 15:03 WBC 8.2 (4.8-10.8) X10*3/uL RBC 3.90 L (4.60-5.80) X10*6/uL Hgb 12.1 L (14.0-18.0) g/dl Hct 35.0 L (42.0-52.0) % MCV 89.7 (80.0-98.0) fL MCH 31.0 (27.0-33.0) pg MCHC 34.6 (31.0-36.0) g/dl RDW 13.1 (11.0-16.0) % Plt Count 216 (160-400) X10*3/uL MPV 9.1 L (9.4-12.4) fL Immature Gran % (Auto) 0.1 (0.0-0.4) % Neut % (Auto) 78.2 H (45-73) % Lymph % (Auto) 12.5 L (20-40) % [place] % (Auto) 6.6 (2-11) % Eos % (Auto) 2.1 (0-4) % Baso % (Auto) 0.5 (0-2) % Lymph # (Auto) 1.0 L (1.2-4.9) X10*3/uL [place] # (Auto) 0.5 (0.1-1.2) X10*3/uL Eos # (Auto) 0.2 (0.0-0.4) X10*3/uL Baso # (Auto) 0.0 (0.0-0.2) X10*3/uL Abs Immat Gran (auto) 0.01 (0.00-0.03) X10*3/uL Absolute Neuts (auto) 6.4 (2.0-8.3) x10*3/uL Absolute Nucleated RBC 0.000 (0.0-0.012) X10*3/uL Nucleated RBC % (auto) 0.0 (0.0-0.2) /100WBC Sodium 131 L (135-145) mmol/L Potassium 3.8 (3.3-5.1) mmol/L Chloride 100 (96-108) mmol/L Carbon Dioxide 22 (22-29) mmol/L Anion Gap 13 (12-20) BUN 15 (9-16) mg/dL Creatinine 0.63 (0.5-1.4) mg/dL Estim Creat Clear Calc 109.2 Estimated GFR > 60 Random Glucose 149 H (60-115) mg/dL Calcium 8.8 (8.4-10.2) mg/dL Magnesium 2.4 (1.6-2.6) mg/dL Total Bilirubin 1.7 H (0.0-1.0) mg/dL Direct Bilirubin 0.6 H (0.0-0.5) mg/dL AST 16 (5-37) U/L ALT 11 (0-40) U/L Alkaline Phosphatase 104 (39-117) U/L Total Protein 7.0 (6.5-8.0) g/dL Albumin 4.1 (3.5-5.0) g/dL Urine Color Yellow Urine Appearance Clear Urine pH 5.5 (5.0-9.0) Ur Specific [place] 1.020 (1.005-1.025) Urine Protein Negative (Neg-Trace) mg/dL Urine Glucose (UA) Negative (Negative) mg/dL Urine Ketones Negative (Negative) mg/dL Urine Blood Negative (Negative) Urine Nitrite Negative (Negative) Ur Leukocyte Esterase Negative (Negative) Urine Opiates Screen Not Detected (Not Detect) Urine Fentanyl Screen Not Detected (Not Detect) Ur Barbiturates Screen Not Detected (Not Detect) Ur Phencyclidine Scrn Not Detected (Not Detect) Ur Amphetamines Screen Not Detected (Not Detect) U Benzodiazepines Scrn Not Detected (Not Detect) Urine Cocaine Screen Not Detected (Not Detect) U Marijuana (THC) Screen Not Detected (Not Detect) Ethyl Alcohol < 10 mg/dL Independent Historian Clinical information obtained from an independent historian. History obtained from or confirmed by: Friend and EMS External Record Review External record reviewed: Outpatient record, Prior outpatient labs and Prior outpatient radiology Tests considered The following testing was considered but not selected: CT head considered however there was no new falls and he had a CT scan done 2 days ago. No new focal abnormality on neurologic exam Prescription Management I considered prescription management with: Pain Medication Chronic Conditions Patient?s care impacted by: Other (Alcohol abuse) Social Determinants Patient?s care significantly limited by Social Determinants of Health including: Problems related to primary support group and Other Social Determinant of Health Discharge Plan Discharge Clinical Impression: Hematoma of left auricular region, Agitation Patient Disposition: Still a Patient Prescriptions: No Action cephalexin 500 mg capsule 500 mg PO TID 7 Days Qty: 21 0RF multivitamin [Daily Multi-Vitamin] Tablet 1 tab PO DAILY cephalexin 500 mg capsule 500 mg PO QID 5 Days Qty: 20 0RF
[2023-05-09 12:30] LABS: MANUAL DIFF FLAG NO
[2023-05-09 12:31] LABS: Basophils Percent Auto 0.5 % (0-2); Eosinophils Absolute Auto 0.2 X10*3/uL (0.0-0.4); Eosinophils Percent Auto 2.1 % (0-4); Hemoglobin 12.1 g/dl (14.0-18.0); Imm Gran Abs Auto 0.01 X10*3/uL (0.00-0.03); Imm Gran Pct Auto 0.1 % (0.0-0.4); Lymphocytes Percent Auto 12.5 % (20-40); Mean Corpuscular HGB Conc 34.6 g/dl (31.0-36.0); Mean Corpuscular Volume 89.7 fL (80.0-98.0); Mean Platelet Volume 9.1 fL (9.4-12.4); Monocytes Absolute Auto 0.5 X10*3/uL (0.1-1.2); Monocytes Percent Auto 6.6 % (2-11); Neutrophils Absolute Auto 6.4 x10*3/uL (2.0-8.3); Neutrophils Percent Auto 78.2 % (45-73); Platelet Count 216 X10*3/uL (160-400); Red Cell Distribution Width 13.1 % (11.0-16.0); White Blood Count 8.2 X10*3/uL (4.8-10.8)
[2023-05-09 12:49] LABS: Alanine Aminotransferase 11 U/L (0-40); Albumin Level 4.1 g/dL (3.5-5.0); Alkaline Phosphatase 104 U/L (39-117); Anion Gap 13 (12-20); Aspartate Amino Transferase 16 U/L (5-37); Bilirubin Direct 0.6 mg/dL (0.0-0.5); Bilirubin Total 1.7 mg/dL (0.0-1.0); Blood Urea Nitrogen 15 mg/dL (9-16); Calcium 8.8 mg/dL (8.4-10.2); Carbon Dioxide 22 mmol/L (22-29); Chloride 100 mmol/L (96-108); Creatinine Clr Calc Pharmacy 109.2; Estimated Glomerular Filt Rate > 60; Ethanol < 10 mg/dL; Glucose Random 149 mg/dL (60-115); Magnesium 2.4 mg/dL (1.6-2.6); Potassium 3.8 mmol/L (3.3-5.1); Sodium 131 mmol/L (135-145)
[2023-05-09] MEDS: Lidocaine 4 % Cream KIT 1 APPL TOPICAL (14:17)
--- NOTE | 2023-05-09 14:18 | PC.NURSE ---
patient left ear is swollen, red and tender to touch, appears to be missing two stitches, patient ear is draining yellow drainage. This RN and tech cleaned patients ear per providers request, lmx applied to ear for procedure.
[2023-05-09] MEDS: OLANZapine ODT 10 MG TAB.RAPDIS 5 MG TRANSLINGU ×2 (15:23→16:40)
--- NOTE | 2023-05-09 15:26 | PC.NURSE ---
patient became agitated, crawling out of bed, asking for his friend Frank. Morales and this RN tried to redirect patient, patient friend showed up at bedside and assisted with helping calm patient down. patient given 5mg oral zyprexa medicated per MAR, patient repositioned in bed, warm blankets and reassurance given. patient friend is at bedside, patient is calm and watching tv
[2023-05-09 15:52] LABS: Appearance Urine Clear; Color Urine Yellow; Glucose Urine UA Negative (Negative); Leukocyte Esterase Urine Negative (Negative); Nitrite Urine Negative (Negative); PH 5.5 (5.0-9.0); Urine Blood Negative (Negative); Urine Ketones Negative (Negative); Urine Protein Negative (Neg-Trace)
--- NOTE | 2023-05-09 15:56 | MHC.CM.PN ---
CM rec'd consult from ED provider for patient who presented w/ recent fall and confusion. CM attempted to meet with patient at bedside. However, patient yelling get away from me and attempting to get out of bed. Patient's friend Jmaie is at the bedside attempting to calm patient. CM unable to interview patient at this time. Per chart review patient is from home alone. Ambulates w/ cane/walker. Previously active w/ [facility]. Return referral sent, but patient not active at this time, willing to accept patient. PCP Jamar England HCP on file DP: Pending PT eval tomorrow. CM will continue to follow.
[2023-05-09 15:59] LABS: Amphetamine Screen Urine Not Detected (Not Detect); Barbiturates, Urine Not Detected (Not Detect); Benzodiazepines Screen Urine Not Detected (Not Detect); Cannabinoid Screen Urine Not Detected (Not Detect); Cocaine Screen Urine Not Detected (Not Detect); Fentanyl, urine Not Detected (Not Detect); Opiate Screen Urine Not Detected (Not Detect); Phencyclidine Screen Urine Not Detected (Not Detect)
--- NOTE | 2023-05-09 16:49 | PC.NURSE ---
patient increasingly agitated, given another 5mg po Zyprexa per APR. patient redirections with wheelchair rides around the unit and walkiing with a walker with staff.
--- NOTE | 2023-05-09 17:08 | PC.NURSE ---
patient laying in bed, respirations equal and unlabored, patient appears to be asleep. friend at bedside
[2023-05-09 17:09] VITALS: RESP 20
[2023-05-09 17:33] VITALS: PULSE 95; RESP 16; O2SAT 97
[2023-05-09 19:04] VITALS: BP 156/70; PULSE 97; RESP 18; O2SAT 97
--- NOTE | 2023-05-09 20:27 | PC.NURSE ---
This leader writer assumed care of this Pt at 1900. Pt A&O to self, bandage to head and right ear dry and intact. Pt agitated, yelling out, reaching out, and attempting to get OOB. Pt unsteady on feet, needs two staff assist with walker and a lot of redirection. 1:1 staff placed for safety. Pt changed over to hospital bed.
[2023-05-09] MEDS: diphenhydrAMINE HCL 25 MG CAPSULE 50 MG PO (22:35)
[2023-05-09] MEDS: LORazepam 1 MG TABLET PO (22:40)
[2023-05-09] MEDS: OLANZapine ODT 10 MG TAB.RAPDIS TRANSLINGU (23:00)
--- NOTE | 2023-05-09 23:05 | PC.NURSE ---
Pt continues to be agitated, restless, yelling out, swearing, Pt not redirectable. Pt medicated per MAR.
[2023-05-10] VITALS (7 sets, daily range): BP systolic 102–179; BP diastolic 56–83; PULSE 85–98; RESP 14–20; TEMP 36.8–38.1; O2SAT 95–97
--- NOTE | 2023-05-10 07:50 | PC.NURSE ---
PT IS A/O X 2, NO SOB/JORGE NOTED SPEAKS IN FULL SENTENCES. DRESSING TO L EAR NOTED, CLEAN/DRY AND INTACT. [place] CATH IN PLACE DRAINING CLEAR YELLOW URINE. PT IS LYING ON HIS L OUTER ELBOW/SIDE UNABLE TO VIEW SKIN TEAR TO L OUTER ELBOW AT THIS TIME. PT HAS A CAMERA IN EFFECT. WILL CONTINUE TO MONITOR.
[2023-05-10 08:44] LABS: COVID-19 Test Negative (Negative); IDNOW Serial# 9DB6401D
--- NOTE | 2023-05-10 10:04 | PC.NURSE ---
boosted, repositioned w pillows, turned. condom cath on- voiding well yellow urine. PT at bedside with pt attempting to get oob. camera on. VS stable. valdo lerma made aware ear pain, ordering tylenol.
--- NOTE | 2023-05-10 11:27 | MHC.CM.ED ---
Patient remains in ER. Physical therapy eval was attempted but patient was unable to participate due to receiving medication overnight. Abena ROE aware. Continue to monitor for d/c needs.
--- NOTE | 2023-05-10 14:06 | PC.NURSE ---
called camera monitoring room, reconfirmed pt is in their visual. pt attempting to get oob. hospital bed bed alarm on and in place, red socks on, call marinelli in reach. boosted, repositioned, more pillows placed, new pad under left ear for drainage- pulled off dressings attempted to place prior. gerry intact, clear yellow urine in bag
--- NOTE | 2023-05-10 15:03 | PC.NURSE ---
redressed ear as pt taking dressings off.
--- NOTE | 2023-05-10 15:35 | MHC.SL.SWA ---
Speech Pathologist Impression: Risk of Aspiration Oralpharyngeal Dysphagia Risk of Aspiration Due to: Reduced Cognition Dysphasia Diet Status: DOWNGRADE from NDD3 to NDD2 Liquid Consistency and Strategies for Safe Swallow: Liquid Intake Recommendation: Thin Liquid Intake Strategies: Small Sips No Straws Solid Food Consistency: Dietary Recommendations: Grnd/Mech Altered (NDD2) Additional Modifications to Solid Foods: Recommend START on GROUND/MECH ALTERED (NDD2) diet for ease of mastication with THIN liquids, pills WHOLE or CRUSHED in PUREE. Patient will require direct supervision at minimum to ensure aspiration precautions and cues for strategies to promote oral clearance (i.e. small bites, chew well, alternate bites of food with sips of liquid). Oral Medication Intake: Whole with Puree Please contact the pharmacy regarding appropriate crushable or liquid drug formulations that are available whenever modified delivery is recommended. Compensatory Strategies and Precautions to be Taken for Safe Swallow: Sitting Upright (90 deg) Double Swallow No Straw Small Bites and Sips Alternate Liquids/Solids Rate of Ingestion Change Oral Check Avoid Specific Foods Supervision While Eating and Drinking for Safe Swallow: Total Assistance (1:1) Foods to Avoid: Hard, dry, or sticky foods; mixed textures Swallowing Recommended Treatments: Compens. Strategy Educat. Recommendation for Speech: Inpatient Speech Therapy Comment: SHOW [employer]G TRAINER will continue to follow to monitor tolerance. Frequency/Duration: M-F PRN Date Range for Service Req: Timeline to reassess: Support Representative Clinican/Clinical Fellow: No Supervisory Statement: I have reviewed and agree with the student/clinical fellow's documentation: N/A Speech Language Pathologist: Mayelin Segura M.A., [facility] TRA[facility]
[2023-05-10] MEDS: levoFLOXacin 750 MG TABLET PO (16:52)
[2023-05-10] MEDS: Ibuprofen 600 MG TABLET PO (16:57)
--- NOTE | 2023-05-10 17:01 | PC.NURSE ---
tolerated apple sauce snack well. given ibuprofen for faces scale 5/10 to left ear pain. tosha lyle and zackery velez opened up ear to check swelling- draining serous/serosanguinoues drainage. boosted, repositioned.
[2023-05-10] MEDS: Acetaminophen 325 MG TABLET 650 MG PO (20:38)
--- NOTE | 2023-05-10 20:44 | PC.NURSE ---
valdo hogan made aware pt somnolent/too drowsy to give tylenol po for 100.5 rectal temp. edison aware hr 90, 100/58(72), sat wnl.
--- NOTE | 2023-05-10 21:00 | PC.NURSE ---
valdo hogan aware po tylenol held due to somnolence. next shift notified.
--- NOTE | 2023-05-10 22:28 | MHC.CM.ED ---
Pt sleeping most of shift. Awaiting PT consult
[2023-05-10] MEDS: Acetaminophen Supp 325 MG SUPP.RECT PR (23:07)
[2023-05-11 02:23] VITALS: TEMP 36.6
[2023-05-11 04:43] VITALS: BP 115/76; PULSE 60; RESP 16; O2SAT 97
--- NOTE | 2023-05-11 08:11 | PC.NURSE ---
Calm and cooperative, ate well for breakfast with staff assist. Tolerated mechanical soft diet well.
--- NOTE | 2023-05-11 08:17 | MHC.CM.ED ---
Addendum entered by Heather Bolton 05/11/23 10:45: Received notification from Yareli ROE that patient will be admitted to the hospital. Original Note: Patient remains in ER. Appears to be lethargic. Yareli ROE aware. Continue to monitor for d/c needs.
[2023-05-11 08:35] VITALS: BP 127/75; PULSE 85; RESP 18; O2SAT 96
--- NOTE | 2023-05-11 08:36 | PC.NURSE ---
left ear draining small amount of ss drainage. Area with swelling, seen by provider
[2023-05-11] MEDS: Thiamine HCL 100 MG in 0.9 % Sodium Chloride 100 ML 202 MG IV ×2 (09:40→13:05)
[2023-05-11] MEDS: levoFLOXacin 500 MG TABLET PO (09:42)
[2023-05-11 09:44] LABS: MANUAL DIFF FLAG NO
[2023-05-11 09:45] LABS: Basophils Percent Auto 0.3 % (0-2); Eosinophils Absolute Auto 0.6 X10*3/uL (0.0-0.4); Hematocrit 38.3 % (42.0-52.0); Hemoglobin 12.8 g/dl (14.0-18.0); Imm Gran Abs Auto 0.02 X10*3/uL (0.00-0.03); Imm Gran Pct Auto 0.3 % (0.0-0.4); Lymphocytes Absolute Auto 1.2 X10*3/uL (1.2-4.9); Mean Corpuscular HGB Conc 33.4 g/dl (31.0-36.0); Mean Corpuscular Hemoglobin 30.7 pg (27.0-33.0); Mean Corpuscular Volume 91.8 fL (80.0-98.0); Monocytes Absolute Auto 0.8 X10*3/uL (0.1-1.2); Monocytes Percent Auto 10.1 % (2-11); Neutrophils Absolute Auto 5.2 x10*3/uL (2.0-8.3); Neutrophils Percent Auto 66.3 % (45-73); Platelet Count 255 X10*3/uL (160-400); Red Blood Count 4.17 X10*6/uL (4.60-5.80); Red Cell Distribution Width 13.2 % (11.0-16.0); White Blood Count 7.8 X10*3/uL (4.8-10.8)
[2023-05-11 09:47] LABS: VBG HCO3 28 mmol/L (22-26); VBG pCO2 43 mmHg; VBG pH 7.42 (7.32-7.43); VBG pO2 45 mmHg
[2023-05-11 09:48] LABS: Venous Blood Gas Refer to POC result
[2023-05-11 09:52] LABS: Ammonia 21 umol/L (13-55)
[2023-05-11 09:59] LABS: Alanine Aminotransferase 12 U/L (0-40); Albumin Level 3.8 g/dL (3.5-5.0); Alkaline Phosphatase 90 U/L (39-117); Anion Gap 11 (12-20); Aspartate Amino Transferase 17 U/L (5-37); Bilirubin Total 1.5 mg/dL (0.0-1.0); Blood Urea Nitrogen 20 mg/dL (9-16); Calcium 9.4 mg/dL (8.4-10.2); Carbon Dioxide 26 mmol/L (22-29); Chloride 103 mmol/L (96-108); Creatinine Clr Calc Pharmacy 88.2; Estimated Glomerular Filt Rate > 60; Glucose Random 106 mg/dL (60-115); Potassium 4.2 mmol/L (3.3-5.1); Sodium 136 mmol/L (135-145); Total Protein 7.2 g/dL (6.5-8.0)
[2023-05-11] MEDS: Doxycycline Monohydrate 100 MG CAPSULE PO (10:56)
[2023-05-11] MEDS: cefuroxime axetiL 250 MG TABLET PO (10:56)
--- NOTE | 2023-05-11 11:48 | PC.NURSE ---
Patient friend teja in to visit patient, stating that he doesn't think patient has had a BM in x 1 week. Patient with positive bowel sounds x 4. Provider to start bowel regimen
--- NOTE | 2023-05-11 11:52 | PM.IMHP ---
History of Present Illness Date of Service: 05/11/23 Attending physician on admission: Shar Larios Chief Complaint: confusion 77 year old male with history of alcohol use disorder, history of prostate cancer, history of colon cancer, htn, gerd, hld, unspecified cognitive impairment. Pt initially presented to ED on 05/06 due to a fall and had sustained a laceration to the left ear. Sutures applied and patient was discharged home. The patient is an every day daily drinker and reports last drink was 2 days ago. Apparently the bar which he regularly frequents had not seen him in 3 days and called police for a wellness check. Apparently his customer care manager/GLOBAL PROGRAM DIRECTOR who is supposed to visit him daily had also not heard from him. on arrival, police found patient pacing back and forth in the same place, disheveled, and confused and called EMS. Per his friend/customer care manager patients mentation is baseline, but ems/police were not comfortable leaving him home so brought him in. The patient has no complaints but states he needs to have a bowel movement. Per his customer care manager, feels he has not moved his bowels in 7 days. He denies fevers, chills , pain in the ear. Patient is oriented to self and place, disoriented to time but overall appears confused and foggy. Upon return to the ED, left ear appeared swollen with hematoma. Several sutures were released with purulent/brown drainage and patient was started on started on po levaquin and placed on observation. He was evaluated by ASSISTANT PRESS OPERATOR due to oral dysphagia noted by staff who recommended NDD2 diet with thin liquids, pills crushed whole or in puree and recommended aspiration precautions and strategies to promote oral clearance. Pt continued to exhibit confusion. Ciwa score 5, not on phenobarb/benzos. Head CT repeated showing chronic microvascular changes but no acute intracranial abnormality. Concern for WE, started on IV thiamine. Wound culture ultimately grew staph aureus on preliminary culture with change in abx to doxy and recommended for admission. While in ED, pt was noted to be febrile to 100.5 last night, vitals otherwise stable. There has been no leukocytosis. Stable normocytic anemia with h/h 12.8/38.3%. Renal function baseline, lytes normal. VBG reasuring. Total bili 1.5, AST/ALT wnl. Ammonia 21. UA unmarkable. Utox negative. Ethyl etoh level undetectable. Negative for COVID 19.Pt will be admitted for further management of cellulitis of the left ear with acute vs chronic encephalopathy. Review of Systems Review of Systems: Yes Unobtainable due to mental status [facility] Medical History Cognitive impairment COVID-19 virus infection Diverticular disease Colon cancer Overweight (BMI 25.0-29.9) Hypertension Knee osteoarthritis GERD (gastroesophageal reflux disease) Hypercholesterolemia Alcohol abuse Prostate cancer Arthritis of knee Family History Mother No problems noted. Father No problems noted. Surgical History History of surgery H/O umbilical hernia repair H/O right hemicolectomy History of total right hip arthroplasty History of total right knee replacement History of total left knee replacement Social History Household Members: Unknown / Unable to assess Housing: Unknown / Unable to assess Do you presently have visiting nurse or other home services: No Alcohol intake: former Comment: 1:1 sitter Patient Tobacco Use Status: Tobacco use Unknown Smoked in Last 30 Days: No Advance Directives: Yes Advance Directives on File: Yes Advance Directives Date on File: 11/10/21 Current occupational status: retired Current occupation: Right Handed Meds Allergies Allergy/AdvReac Type Severity Reaction Status Date / Time No Known Allergies Allergy Verified 05/07/23 12:57 [No Known Allergies*] Active Medications: Current Medications Acetaminophen (Acetaminophen 325 Mg Tablet) 650 mg PO Q6H PRN PRN Reason: Pain, Mild (Pain Scale 1-3) Enoxaparin Sodium (Enoxaparin Sodium 40 Mg/0.4 Ml Syringe) 40 mg SUBCUT Q24H [facility] Thiamine HCl 100 mg/ Sodium (Chloride) 101 mls @ 202 mls/hr IV ONCE ONE Stop: 05/11/23 12:14 Thiamine HCl 100 mg/ Sodium (Chloride) 101 mls @ 202 mls/hr IV DAILY [facility] Sodium Chloride (Ns) 1,000 mls @ 999 mls/hr IV .Q1H1M [facility] Stop: 05/11/23 13:00 Ondansetron HCl (Ondansetron Hcl 4 Mg/2 Ml Vial) 4 mg IVPUSH Q8H PRN PRN Reason: Nausea and Vomiting Pharmacy Consult (Consult Rx Vancomycin Dosing) 1 each MISCELLANE DAILY PRN PRN Reason: Consult order Pharmacy Consult (Consult Rx Etoh Phenob Im/Po) 1 each MISCELLANE ONCE PRN; Protocol PRN Reason: Consult order Senna (Sennosides 8.6 Mg Tablet) 17.2 mg PO BEDTIME PRN PRN Reason: Constipation Sodium Chloride (0.9 % Sodium Chloride Flush 3 Ml Syringe) 3 ml IVFLUSH [facility] Medications Medication Instructions Recorded Confirmed Last Taken Type cephalexin 500 mg capsule 500 mg PO TID 05/11/23 05/11/23 05/08/23 History ferrous sulfate 325 mg (65 mg 325 mg PO DAILY 05/11/23 05/11/23 05/08/23 History iron) tablet multivitamin 1 tab PO DAILY 05/11/23 05/11/23 05/08/23 History sennosides 8.6 mg tablet (senna) 8.6 mg PO BID 05/11/23 05/11/23 05/08/23 History Physical Exam Vital Signs and Narrative: Vital Signs: Last Vital Signs Temp 97.8 F 05/11/23 02:23 Pulse 85 05/11/23 08:35 Resp 18 05/11/23 08:35 BP 127/75 05/11/23 08:35 Pulse Ox 96 05/11/23 08:35 O2 Del Method Room Air 05/11/23 08:35 BMI result Body Mass Index 26.4 Constitutional - Awake and Alert, No apparent distress Eyes - PERRLA, EOMI Ear - left ear with hematoma of cartilage with laceration along the pinna with [address] Cardiovascular - S1S2, RRR, No edema Respiratory - Normal lung expansion, Normal respiratory effort, No respiratory distress, CTA bilaterally Gastrointestinal - NT / ND; +BS; No rebound or guarding - condom catheter in place draining orange urine Extremities - no calf tenderness bilaterally, no swelling Skin - Warm/Dry Neurological - Alert & oriented to self and place, aloof/confused, CN II-XII in tact, 5/5 strength BUE and BLE Results Labs 05/11/23 09:36 05/11/23 09:36 Labs: Laboratory Results - last 24 hr 05/11/23 05/11/23 09:36 09:40 MCV 91.8 MCH 30.7 MCHC 33.4 RDW 13.2 Plt Count 255 MPV 9.0 L Immature Gran % (Auto) 0.3 Neut % (Auto) 66.3 Lymph % (Auto) 15.0 L [place] % (Auto) 10.1 Eos % (Auto) 8.0 H Baso % (Auto) 0.3 Lymph # (Auto) 1.2 [place] # (Auto) 0.8 Eos # (Auto) 0.6 H Baso # (Auto) 0.0 Abs Immat Gran (auto) 0.02 Absolute Neuts (auto) 5.2 Absolute Nucleated RBC 0.000 Nucleated RBC % (auto) 0.0 VBG pH 7.42 VBG pCO2 43 VBG pO2 45 VBG HCO3 28 H VBG O2 Saturation 75.0 VBG Base Excess 4.0 Anion Gap 11 L Estim Creat Clear Calc 88.2 Estimated GFR > 60 Random Glucose 106 Calcium 9.4 D Total Bilirubin 1.5 H AST 17 ALT 12 Alkaline Phosphatase 90 Ammonia 21 Total Creatine Kinase 150 Total Protein 7.2 Albumin 3.8 Imaging Radiologist's Impressions: Impressions Head CT 05/11/23 09:34 IMPRESSION: 1. No acute intracranial pathology. 2. Chronic white matter small vessel ischemic changes. 3. Cerebral atrophy with commensurate ventricular changes. 4. Chronic lacunar infarct left basal ganglia. 5. Mucoperiosteal thickening of the bilateral maxillary, ethmoid, sphenoid, and frontal sinuses. Assessment and Plan (1) Hematoma of left auricular region: Status: Acute (2) Cellulitis of left ear: Status: Acute (3) Encephalopathy: Status: Resolved Plan 77 year old male with history of alcohol use disorder, history of prostate cancer, history of colon cancer, htn, gerd, hld, unspecified cognitive impairment admitted for further management of cellulitis left ear with acute vs chronic metabolic encephalopathy. #Acute hematoma with cellulitis Left ear -Febrile to 100.5 last night. No leukocytosis. No sepsis -Wound culture prelim report growing staph aureus -IV vanco (initiated 05/10) -cold packs -follow cbc, cultures #Acute vs chronic metabolic encephalopathy -question wernicke's encephalopathy -head ct negative for acute intracranial abn, but shows chronic microvascular changes -ammonia, lytes, renal function, vbg all reassuring -200mg IV thiamine today, continue 100mg iv thiamine daily -psychiatry consult -monitor mentation #Laceration pinna left ear -10 simple interupted sutures remaining, placed 05/08. Consider removal 05/11- #HTN -bp reasonably controlled. not on antihypertensives dvt prophylaxis- lovenox full code pt requires inpt stay at least 2 midnights for management of cellulitis left ear with wound culture growing staph aureus awaiting final cultures on iv vanco and also requires close monitoring of mentation due to encephalopathy, chronicity unclear, with concern for wernickes encephalopathy on iv thiamine and requiring expert consultation Quality Stroke Does the patient have a stroke diagnosis?: No VTE Prior VTE?: No VTE Risk Level:: Medical - moderate - high VTE Device Contraindication: Treatment Not Indicated VTE Drug Contraindication: N/A - Med Ordered
[2023-05-11 12:30] LABS: Folate 12.1 ng/mL (> or = 4.0); Vitamin B12 410 pg/mL (200-900)
[2023-05-11] MEDS: polyethylene glycoL 3350 17 GM POWD.PACK PO (13:04)
[2023-05-11] MEDS: Enoxaparin Sodium 40 MG/0.4 ML SYRINGE SUBCUT (13:04)
[2023-05-11] MEDS: PHENobarbitaL sodium 130 MG/ML IM ONCE 320 MG IM (13:05)
[2023-05-11] MEDS: 0.9 % Sodium Chloride 1,000 ML 999 ML IV (13:12)
--- NOTE | 2023-05-11 13:17 | PHA.MEDREC ---
Pharmacy Consult ? Medication Reconciliation Pharmacy has completed the medication reconciliation. Confirmed medications with family friend. Friend reports that patient was prescribed Sertraline but it has not been filled nor picked up. (insurance issues)
[2023-05-11] MEDS: vancomycin/NS 2,000 MG/500 ML PLAST..BAG 250 MG IV (14:11)
[2023-05-11] MEDS: Bacitracin Oint 0.9 GM PACKET 2 APPL TOPICAL (14:45)
--- NOTE | 2023-05-11 14:46 | PC.NURSE ---
left ear appearing more red and swollen , Dr. Stephenson came to bed side to assess / treat area. Bacatracin applied to area
--- NOTE | 2023-05-11 15:20 | P.CNPS_ITS ---
History of Present Illness Date of Service: 05/11/2023 Chief Complaint: Cellulitis L ear, possible WE Requesting physician: Radha Barbosa Discussed with referring provider: Yes Sources of Information: patient interviewed, chart reviewed and crisis/core team assessment reviewed HPI Narrative: Mr. Gomez is a 77 year-old mal with hx of alcohol use disorder who was recently seen in the ED after a fall, injury to his left ear which required sutures. Pt was brought via EMS as he was found in the home lethargic, confused. Psychiatry consult for assessment of Wernicke's encephalopathy. Pt seen in bed. He is somewhat somnolent. But opens his eyes. He tells this telegraphic typewriter operator, they are taking good care of me. Pt reports he is here because of his ear. When asked about the year, he is somewhat confused about it and tells this telegraphic typewriter operator, it may be 2010. He is able to tell me that it is May. He does know this is [facility]. This telegraphic typewriter operator attempted to assess for nystagmus, he had some difficulty moving his eyes, but repeatedly kept telling this telegraphic typewriter operator that he who see my finger but would not follow it with his sight. He did turn his head to look at each side of the wall, then able to turn his eyes to left and then right. No appreciable nystagmus. This telegraphic typewriter operator did not observe pt walking as he is somnolent. He was started on thiamine given Past Psychiatric History: Denied [facility] Medical History Cognitive impairment COVID-19 virus infection Diverticular disease Colon cancer Overweight (BMI 25.0-29.9) Hypertension Knee osteoarthritis GERD (gastroesophageal reflux disease) Hypercholesterolemia Alcohol abuse Prostate cancer Arthritis of knee Surgical History History of surgery H/O umbilical hernia repair H/O right hemicolectomy History of total right hip arthroplasty History of total right knee replacement History of total left knee replacement Social History: reports living alone in [place]. Reports not having family or support as they . Diagnostics Vital Signs (24Hr): Vital Signs - 24 hr 05/10/23 16:13 05/10/23 19:35 05/10/23 23:13 Temperature 99.8 F 100.5 F H 100.0 F Pulse Rate 85 98 94 Respiratory Rate 15 20 18 Blood Pressure 123/69 102/64 140/79 H Pulse Oximetry 96 97 96 Oxygen Delivery Method Room Air Room Air Room Air 05/11/23 02:23 05/11/23 04:43 05/11/23 08:35 Temperature 97.8 F Pulse Rate 60 85 Respiratory Rate 16 18 Blood Pressure 115/76 127/75 Pulse Oximetry 97 96 Oxygen Delivery Method Room Air Room Air BMI result Body Mass Index 26.4 Labs 05/11/23 09:36 05/11/23 09:36 Labs: Laboratory Results - last 48 hr 05/09/23 05/10/23 05/11/23 15:03 07:54 09:36 WBC 7.8 RBC 4.17 L Hgb 12.8 L Hct 38.3 L MCV 91.8 MCH 30.7 MCHC 33.4 RDW 13.2 Plt Count 255 MPV 9.0 L Immature Gran % (Auto) 0.3 Neut % (Auto) 66.3 Lymph % (Auto) 15.0 L [place] % (Auto) 10.1 Eos % (Auto) 8.0 H Baso % (Auto) 0.3 Lymph # (Auto) 1.2 [place] # (Auto) 0.8 Eos # (Auto) 0.6 H Baso # (Auto) 0.0 Abs Immat Gran (auto) 0.02 Absolute Neuts (auto) 5.2 Absolute Nucleated RBC 0.000 Nucleated RBC % (auto) 0.0 VBG pH VBG pCO2 VBG pO2 VBG HCO3 VBG O2 Saturation VBG Base Excess Sodium 136 Potassium 4.2 Chloride 103 Carbon Dioxide 26 Anion Gap 11 L BUN 20 H Creatinine 0.78 Estim Creat Clear Calc 88.2 Estimated GFR > 60 Random Glucose 106 Calcium 9.4 D Total Bilirubin 1.5 H AST 17 ALT 12 Alkaline Phosphatase 90 Ammonia 21 Total Creatine Kinase 150 Total Protein 7.2 Albumin 3.8 Vitamin B12 410 Folate 12.1 Urine Color Yellow Urine Appearance Clear Urine pH 5.5 Ur Specific [place] 1.020 Urine Protein Negative Urine Glucose (UA) Negative Urine Ketones Negative Urine Blood Negative Urine Nitrite Negative Ur Leukocyte Esterase Negative Urine Opiates Screen Not Detected Urine Fentanyl Screen Not Detected Ur Barbiturates Screen Not Detected Ur Phencyclidine Scrn Not Detected Ur Amphetamines Screen Not Detected U Benzodiazepines Scrn Not Detected Urine Cocaine Screen Not Detected U Marijuana (THC) Screen Not Detected COVID-19 (HERNANDEZ) Negative COVID-19 Clin Com See Note 05/11/23 09:40 WBC RBC Hgb Hct MCV MCH MCHC RDW Plt Count MPV Immature Gran % (Auto) Neut % (Auto) Lymph % (Auto) [place] % (Auto) Eos % (Auto) Baso % (Auto) Lymph # (Auto) [place] # (Auto) Eos # (Auto) Baso # (Auto) Abs Immat Gran (auto) Absolute Neuts (auto) Absolute Nucleated RBC Nucleated RBC % (auto) VBG pH 7.42 VBG pCO2 43 VBG pO2 45 VBG HCO3 28 H VBG O2 Saturation 75.0 VBG Base Excess 4.0 Sodium Potassium Chloride Carbon Dioxide Anion Gap BUN Creatinine Estim Creat Clear Calc Estimated GFR Random Glucose Calcium Total Bilirubin AST ALT Alkaline Phosphatase Ammonia Total Creatine Kinase Total Protein Albumin Vitamin B12 Folate Urine Color Urine Appearance Urine pH Ur Specific [place] Urine Protein Urine Glucose (UA) Urine Ketones Urine Blood Urine Nitrite Ur Leukocyte Esterase Urine Opiates Screen Urine Fentanyl Screen Ur Barbiturates Screen Ur Phencyclidine Scrn Ur Amphetamines Screen U Benzodiazepines Scrn Urine Cocaine Screen U Marijuana (THC) Screen COVID-19 (HERNANDEZ) COVID-19 Clin Com Imaging Radiology Impressions: ITS Impressions Head CT 05/11/23 09:34 IMPRESSION: 1. No acute intracranial pathology. 2. Chronic white matter small vessel ischemic changes. 3. Cerebral atrophy with commensurate ventricular changes. 4. Chronic lacunar infarct left basal ganglia. 5. Mucoperiosteal thickening of the bilateral maxillary, ethmoid, sphenoid, and frontal sinuses. Mental Status Exam Mental Status Exam Narrative: appearance: wearing hospital gown, fair hygiene, in NAD behavior: somewhat guarded, confused Speech: mostly clear, mumbles at times, spontaneous TP: repetitive-- they are taking care of me TC: feeling well taken care Mood: okay Affect: perplexed at times SI: none HI: none VH/AH: none Delusions: none Insight/judgment: impaired x 2 memory/cog: alert, oriented to place, month not year, confused as to situation, poor attention Medications Medications Current Medications Acetaminophen (Acetaminophen 325 Mg Tablet) 650 mg PO Q6H PRN PRN Reason: Pain, Mild (Pain Scale 1-3) Docusate Sodium (Docusate Sodium 100 Mg Capsule) 100 mg PO BID [facility] Enoxaparin Sodium (Enoxaparin Sodium 40 Mg/0.4 Ml Syringe) 40 mg SUBCUT Q24H [facility] Last Admin: 05/11/23 13:04 Dose: 40 mg Ferrous Sulfate (Ferrous Sulfate 324 Mg Tablet.Dr) 324 mg PO DAILY [facility] Thiamine HCl 100 mg/ Sodium (Chloride) 101 mls @ 202 mls/hr IV DAILY [facility] Folic Acid 1 mg/ Sodium (Chloride) 50.2 mls @ 100.4 mls/hr IV DAILY [facility] Stop: 05/14/23 09:29 Multivitamins/Vitamin C (Multivitamin Tablet) 1 tab PO DAILY [facility] Ondansetron HCl (Ondansetron Hcl 4 Mg/2 Ml Vial) 4 mg IVPUSH Q8H PRN PRN Reason: Nausea and Vomiting Pharmacy Consult (Consult Rx Vancomycin Dosing) 1 each MISCELLANE DAILY PRN PRN Reason: Consult order Pharmacy Consult (Consult Rx Etoh Phenob Im/Po) 1 each MISCELLANE ONCE PRN; Protocol PRN Reason: Consult order Phenobarbital (Phenobarbital 30 Mg Tablet) 60 mg PO BID [facility] Stop: 05/13/23 21:01 Phenobarbital (Phenobarbital 30 Mg Tablet) 30 mg PO BID [facility] Stop: 05/15/23 21:01 Phenobarbital (Phenobarbital 30 Mg Tablet) 30 mg PO DAILY [facility] Stop: 05/17/23 09:01 Phenobarbital Sodium (Phenobarbital Sodium 130 Mg/Ml Vial Im Q3hx2) 240 mg IM Q3H [facility] Stop: 05/11/23 19:01 Polyethylene Glycol (Polyethylene Glycol 3350 17 Gm Powd.Pack) 17 gm PO DAILY [facility] Last Admin: 05/11/23 13:04 Dose: 17 gm Senna (Sennosides 8.6 Mg Tablet) 17.2 mg PO BEDTIME PRN PRN Reason: Constipation Sodium Biphosphate/Sodium Phosphate (Sodium Phosphate,[place]-Dibasic 133 Ml Enema) 133 ml [place] ONCE PRN PRN Reason: Constipation Sodium Chloride (0.9 % Sodium Chloride Flush 3 Ml Syringe) 3 ml IVFLUSH QSHIFT [facility] Allergies Allergies Allergy/AdvReac Type Severity Reaction Status Date / Time No Known Allergies Allergy Verified 05/07/23 12:57 [No Known Allergies*] Assessment & Plan Assessment & Plan (1) Delirium: Status: Acute Code(s): R41.0 - Disorientation, unspecified Plan Mr. Gomez is a 77 year-old male with hx of alcohol use. Brought via EMS due to increase lethargy and confusions. Psychiatry consulted re: wernicke's encephalopathy. Pt presents with flunctuation in orientation and confusion despite knowing where he is. His gaze with no significant nystagmus but some opthalmoplegia. May want to consult neurology for definite dx. In the meantime can continue high doses of thiamine- recommended tx is thiamine 500mg IV TID x 2 days, follow by 250mg IV x 5 days. He does have extensive chronic microvascular changes and atrophy, so would expect at baseline he probably has major neurocognitive disorder but extend of it needs to be assessed with at least a MOCA and ACL once he is more oriented. Total time managing care of this patient today ____ minutes.
--- NOTE | 2023-05-11 15:34 | PHA.PROG ---
Admission Date/Time: May 11, 2023 11:44 Indication: skiN Weight in k.718 kg Adjusted body weight in K.2 Serum Creatinine - Last 168 Hours 05/09/23 05/11/23 12:25 09:36 Creatinine 0.63 0.78 Estimated CrCl and GFR - Last 168 Hours 05/09/23 05/11/23 12:25 09:36 Estim Creat Clear Calc 109.2 88.2 Estimated GFR > 60 > 60 Vancomycin Loading Dose: 2000 MG X1 Current Vancomycin Dosing Regimen: 1000 MG Q12H Vancomycin Monitoring using AUC goal of 400 - 600 range with trough as surrogate marker: 509 Date and Time for next Vancomycin Level to be drawn: 05/12 @12HR Pharmacist Comments on Vancomycin Plan: Vancomycin dosing will take advantage of [employer] as a clinical decision support tool that uses Bayesian modeling to calculate individual patient's pharmacokinetic parameters and forecast the patient's drug concentration time course with the target goal AUC 24 range of 400 - 600 mg/L/hr.
--- NOTE | 2023-05-11 16:24 | MHC.CM.ED ---
[facility] following. Please update as needed.
--- NOTE | 2023-05-11 16:52 | PC.NURSE ---
Report given to overflow
--- NOTE | 2023-05-11 16:58 | MHC.SL.DTX ---
Dysphagia Diet modifications: Last documented Solid diet consistencies: NDD2 Last documented Liquid consistency: Thin Changes made to current diet?: No Liquid Consistency and Strategies: Liquid Intake Recommendation: Thin Compensatory Strategies for Safe Swallow: Small Sips No Straws Compensatory Strategies for Safe Swallow(b): Sitting Upright (90 deg) Double Swallow No Straw Small Bites and Sips Alternate Liquids/Solids Rate of Ingestion Change Oral Check Avoid Specific Foods Solid Food Consistency: Dietary Recommendations: Grnd/Mech Altered (NDD2) Oral Medication Intake: Whole with Puree Strategies and Precautions to be Taken for Safe Swallow: Sitting Upright (90 deg) Double Swallow No Straw Small Bites and Sips Alternate Liquids/Solids Rate of Ingestion Change Oral Check Avoid Specific Foods Supervision While Eating and/Drinking: Total Assistance (1:1) Foods to Avoid: Hard, dry, or sticky foods; mixed textures Swallowing Recommended Treatments: Compens. Strategy Educat. Recommendation for Speech: Inpatient Speech Therapy Comment: MATERIAL HANDLER will continue to follow to monitor tolerance. Frequency/Duration: M-F PRN Additional Comments: Treatment: Pt ( Ha ) seen in the ED. His ear is still inflamed with stitching present. He awakens easily to voice. He is confused at first asking, was I being mean? . It is unclear if this is related to a previous incident. He remains without dentures. States that he does not have any. He reports that he gets meals on wheels and one of his favorite meals is meatloaf. He tolerates Thin Liquids via Ice Chip, self administered cup and straw sips with no overt s/s of aspiration. He tolerates progressive bites of Puree Solids and Ground/Mech Solids. He is able to prepare both in a timely manner with no overt s/s steve aspiration and complete oral clearance. No further trials attempted at this time d/t Pt mentation and edentulous status. Assessment: Hat Binder Clinican/Clinical Fellow: No Supervisory Statement: I have reviewed and agree with the student/clinical fellow's documentation: N/A Speech Language Pathologist: Giovanni Cuevas M.A., [facility]-MATERIAL HANDLER
--- NOTE | 2023-05-11 17:20 | PC.NURSE ---
assumed care of patient at this time.
[2023-05-11] MEDS: PHENobarbitaL sodium 130 MG/ML VIAL IM Q3Hx2 240 MG IM ×2 (18:02→22:12)
[2023-05-11] MEDS: Thiamine HCL 500 MG in 0.9 % Sodium Chloride 100 ML 202 MG IV (18:19)
[2023-05-11] MEDS: Dextrose 5 % and Lactated Ring 1,000 ML 80 ML IVCONT (18:52)
--- NOTE | 2023-05-11 20:17 | PC.NURSE ---
Assumed care of pt at 19:15, pt laying in bed, offered a wave and smile to this magazine writer but did not engage further. Denies any complaints. D5LR running @ 80mls/hr per order. Plan of care ongoing.
--- NOTE | 2023-05-11 20:19 | PC.NURSE ---
Second dose of Phenobarbital delayed due to first dose given two hours late.
[2023-05-11 21:40] VITALS: BP 133/72; PULSE 100; RESP 12; TEMP 37.1; O2SAT 93
--- NOTE | 2023-05-11 21:54 | PC.NURSE ---
Pharmacy contacted at 21:30 re: need for Phenobarb to be loaded into pyxis.
[2023-05-11] MEDS: Docusate Sodium 100 MG CAPSULE PO (22:26)
[2023-05-12] MEDS: vancomycin HCL 1,000 MG in 0.9 % Sodium Chloride 250 ML 270 MG IV ×2 (02:17→16:52)
--- NOTE | 2023-05-12 02:57 | PC.NURSE ---
Pt became agitated, attempting to get out of bed, pulled off condom catheter. Verbal reassurance given, pt cleaned up and kathleen care provided. Linens changed. PT currently resting. Plan of care ongoing.
--- NOTE | 2023-05-12 05:12 | PC.NURSE ---
PT continues to remove [place] catheter, refuses to cooperative with reapplying.
[2023-05-12 06:13] LABS: MANUAL DIFF FLAG NO
[2023-05-12 06:37] LABS: Anion Gap 11 (12-20); Basophils Percent Auto 0.4 % (0-2); Blood Urea Nitrogen 16 mg/dL (9-16); Calcium 8.4 mg/dL (8.4-10.2); Carbon Dioxide 24 mmol/L (22-29); Chloride 104 mmol/L (96-108); Creatinine Clr Calc Pharmacy 91.7; Eosinophils Absolute Auto 0.7 X10*3/uL (0.0-0.4); Eosinophils Percent Auto 9.7 % (0-4); Estimated Glomerular Filt Rate > 60; Glucose Random 118 mg/dL (60-115); Hematocrit 31.6 % (42.0-52.0); Hemoglobin 10.6 g/dl (14.0-18.0); Imm Gran Abs Auto 0.02 X10*3/uL (0.00-0.03); Imm Gran Pct Auto 0.3 % (0.0-0.4); Lymphocytes Absolute Auto 1.5 X10*3/uL (1.2-4.9); Lymphocytes Percent Auto 21.8 % (20-40); Mean Corpuscular HGB Conc 33.5 g/dl (31.0-36.0); Mean Corpuscular Hemoglobin 31.2 pg (27.0-33.0); Mean Corpuscular Volume 92.9 fL (80.0-98.0); Mean Platelet Volume 9.4 fL (9.4-12.4); Monocytes Absolute Auto 0.7 X10*3/uL (0.1-1.2); Monocytes Percent Auto 10.2 % (2-11); Neutrophils Absolute Auto 4.1 x10*3/uL (2.0-8.3); Neutrophils Percent Auto 57.6 % (45-73); Platelet Count 226 X10*3/uL (160-400); Potassium 3.6 mmol/L (3.3-5.1); Red Cell Distribution Width 13.2 % (11.0-16.0); Sodium 135 mmol/L (135-145); White Blood Count 7.1 X10*3/uL (4.8-10.8)
--- NOTE | 2023-05-12 06:55 | HE.PHANOTE ---
Re: Ester Continue current dose of 1,000mg q12h. Next trough 4/4 at 1200.
[2023-05-12] MEDS: Thiamine HCL 500 MG in 0.9 % Sodium Chloride 100 ML 202 MG IV (07:43)
[2023-05-12] MEDS: Dextrose 5 % and Lactated Ring 1,000 ML 80 ML IVCONT (07:45)
[2023-05-12] MEDS: PHENobarbitaL 30 MG TABLET 60 MG PO ×2 (08:17→21:18)
[2023-05-12] MEDS: Multivitamin TABLET 1 TAB PO (08:17)
[2023-05-12] MEDS: Ferrous Sulfate 324 MG TABLET.DR PO (08:17)
[2023-05-12] MEDS: Docusate Sodium 100 MG CAPSULE PO ×2 (08:17→21:17)
--- NOTE | 2023-05-12 10:10 | MHC.SL.SWA ---
Speech Pathologist Impression: Risk of Aspiration Oralpharyngeal Dysphagia Risk of Aspiration Due to: Reduced Cognition Dysphasia Diet Status: NO change Liquid Consistency and Strategies for Safe Swallow: Liquid Intake Recommendation: Thin Liquid Intake Strategies: No Straws Solid Food Consistency: Dietary Recommendations: Grnd/Mech Altered (NDD2) Additional Modifications to Solid Foods: Patient will require direct supervision at minimum to ensure aspiration precautions and cues for strategies to promote oral clearance (i.e. small bites, chew well, alternate bites of food with sips of liquid). Oral Medication Intake: Whole with Puree Please contact the pharmacy regarding appropriate crushable or liquid drug formulations that are available whenever modified delivery is recommended. Compensatory Strategies and Precautions to be Taken for Safe Swallow: Sitting Upright (90 deg) No Straw Small Bites and Sips Alternate Liquids/Solids Rate of Ingestion Change Oral Check Avoid Specific Foods Supervision While Eating and Drinking for Safe Swallow: Total Supervision (1:1) Foods to Avoid: Hard, dry, or sticky foods; mixed textures Swallowing Recommended Treatments: Compens. Strategy Educat. Recommendation for Speech: Inpatient Speech Therapy Comment: Continue to recommend GROUND/MECH ALTERED SOLIDS with THIN LIQUIDS. MEDS WHOLE with LIQUIDS/PUREE. ASSIST w/ TRAY SET-UP. TOTAL SUPERVISION recommended. HEATING REPAIR TECHNICIAN will continue to follow. Fish Drier Clinican/Clinical Fellow: No Supervisory Statement: I have reviewed and agree with the student/clinical fellow's documentation: N/A Speech Language Pathologist: Mariel Salguero M.A., [facility]-HEATING REPAIR TECHNICIAN
[2023-05-12] MEDS: Folic Acid 1 MG in 0.9 % Sodium Chloride 50 ML 100.4 MG IV (11:35)
--- NOTE | 2023-05-12 11:43 | HO.PM.IMPN ---
Subjective Subjective Date of Service: 05/12/23 Interval History: Seen and evaluated this morning Altered and unable to provide any history Review of Systems Review of Systems: Yes Unobtainable due to mental condition Physical Exam Vital Signs: Vital Signs: Last Vital Signs Temp 98.8 F 05/11/23 21:40 Pulse 100 05/11/23 21:40 Resp 12 05/11/23 21:40 BP 133/72 05/11/23 21:40 Pulse Ox 93 05/11/23 21:40 O2 Del Method Room Air 05/11/23 21:40 BMI result Body Mass Index 26.4 Const: Other: Constitutional : altered, not in distress Neck : Normal inspection, Supple Cardiovascular : RRR, no JVP, no lower extremity edema Respiratory : good bilateral air entry, no crackles, wheezes or rhonchi Gastrointestinal: soft, lax, Normal bowel sounds, Non tender Skin : Warm, Dry Neurological : not responsive, GCS 9, No focal deficit Objective Data Active Medications Acetaminophen (Acetaminophen 325 Mg Tablet) 650 mg PO Q6H PRN PRN Reason: Pain, Mild (Pain Scale 1-3) Docusate Sodium (Docusate Sodium 100 Mg Capsule) 100 mg PO BID [facility] Last Admin: 05/12/23 08:17 Dose: 100 mg Documented By: LESIA Enoxaparin Sodium (Enoxaparin Sodium 40 Mg/0.4 Ml Syringe) 40 mg SUBCUT Q24H [facility] Last Admin: 05/11/23 13:04 Dose: 40 mg Documented By: BARBARA Ferrous Sulfate (Ferrous Sulfate 324 Mg Tablet.) 324 mg PO DAILY [facility] Last Admin: 05/12/23 08:17 Dose: 324 mg Documented By: LESIA Folic Acid 1 mg/ Sodium (Chloride) 50.2 mls @ 100.4 mls/hr IV DAILY [facility] Stop: 05/14/23 09:29 Thiamine HCl 500 mg/ Sodium (Chloride) 105 mls @ 202 mls/hr IV BIDWM [facility] Last Infusion: 05/12/23 08:38 Dose: Infused Documented By: LESIA Dextrose/Lactated Ringer's (D5lr) 1,000 mls @ 80 mls/hr IVCONT .[id number] [facility] Last Admin: 05/12/23 07:45 Dose: 80 mls/hr Documented By: LESIA Vancomycin HCl 1,000 mg/ (Sodium Chloride) 270 mls @ 270 mls/hr IV Q12H [facility] Last Infusion: 05/12/23 03:20 Dose: Infused Documented By: LALA Multivitamins/Vitamin C (Multivitamin Tablet) 1 tab PO DAILY [facility] Last Admin: 05/12/23 08:17 Dose: 1 tab Documented By: LESIA Ondansetron HCl (Ondansetron Hcl 4 Mg/2 Ml Vial) 4 mg IVPUSH Q8H PRN PRN Reason: Nausea and Vomiting Pharmacy Consult (Consult Rx Vancomycin Dosing) 1 each MISCELLANE DAILY PRN PRN Reason: Consult order Pharmacy Consult (Consult Rx Etoh Phenob Im/Po) 1 each MISCELLANE ONCE PRN; Protocol PRN Reason: Consult order Phenobarbital (Phenobarbital 30 Mg Tablet) 60 mg PO BID [facility] Stop: 05/13/23 21:01 Last Admin: 05/12/23 08:17 Dose: 60 mg Documented By: LESIA Phenobarbital (Phenobarbital 30 Mg Tablet) 30 mg PO BID [facility] Stop: 05/15/23 21:01 Phenobarbital (Phenobarbital 30 Mg Tablet) 30 mg PO DAILY [facility] Stop: 05/17/23 09:01 Polyethylene Glycol (Polyethylene Glycol 3350 17 Gm Powd.Pack) 17 gm PO DAILY [facility] Last Admin: 05/12/23 08:17 Dose: Not Given Documented By: LESIA Non-Admin Reason: Patient Refused Senna (Sennosides 8.6 Mg Tablet) 17.2 mg PO BEDTIME PRN PRN Reason: Constipation Sodium Biphosphate/Sodium Phosphate (Sodium Phosphate,[place]-Dibasic 133 Ml Enema) 133 ml [place] ONCE PRN PRN Reason: Constipation Sodium Chloride (0.9 % Sodium Chloride Flush 3 Ml Syringe) 3 ml IVFLUSH QSHIFT [facility] Last Admin: 05/12/23 08:17 Dose: Not Given Documented By: LESIA Non-Admin Reason: IV Running Labs 05/12/23 06:03 05/12/23 06:03 Labs: Laboratory Results - last 24 hr 05/11/23 05/12/23 09:36 06:03 MCV 92.9 MCH 31.2 MCHC 33.5 RDW 13.2 Plt Count 226 MPV 9.4 Immature Gran % (Auto) 0.3 Neut % (Auto) 57.6 Lymph % (Auto) 21.8 [place] % (Auto) 10.2 Eos % (Auto) 9.7 H Baso % (Auto) 0.4 Lymph # (Auto) 1.5 [place]iken # (Auto) 0.7 Eos # (Auto) 0.7 H Baso # (Auto) 0.0 Abs Immat Gran (auto) 0.02 Absolute Neuts (auto) 4.1 Absolute Nucleated RBC 0.000 Nucleated RBC % (auto) 0.0 Anion Gap 11 L Estim Creat Clear Calc 91.7 Estimated GFR > 60 Random Glucose 118 H Calcium 8.4 D Vitamin B12 410 Folate 12.1 Microbiology Microbiology Results: Microbiology 05/10/23 16:17 Gram Stain - Final Ear - Left Routine Culture - Final Staphylococcus aureus Assessment and Plan (1) Delirium: Status: Acute (2) Cellulitis of left ear: Status: Acute (3) Cognitive impairment: Status: Acute Plan 77 year old male with history of alcohol use disorder, history of prostate cancer, history of colon cancer, htn, gerd, hld, unspecified cognitive impairment admitted for further management of cellulitis left ear with acute vs chronic metabolic encephalopathy. #Acute hematoma with cellulitis Left ear covered with dressing Wound culture growing MSSA Continue IV vanco (initiated 05/10) cold packs remove sutures today\tomorrow #Acute on chronic metabolic encephalopathy head ct negative for acute intracranial abnormalities, but shows chronic microvascular changes concern for wernicke's encephalopathy Continue 500mg Thiamine TID today then 250 tid tomorrow for 5 days psychiatry input appreciated recurrent reorientation Was able to participate with PT who recommended STR #Laceration pinna left ear 10 simple interrupted sutures remaining, placed 05/08. Consider removal 05/12 #HTN controlled. not on antihypertensives dvt prophylaxis lovenox full code pt requires inpt stay overnight for management of cellulitis left ear on iv vanco and requires close monitoring of altered mentation due to encephalopathy, chronicity unclear, with concern for wernickes encephalopathy on iv thiamine and requiring expert consultation Quality Stroke Does the patient have a stroke diagnosis?: No VTE Prior VTE?: No VTE Risk Level:: Medical - moderate - high VTE Device Contraindication: Treatment Not Indicated VTE Drug Contraindication: N/A - Med Ordered
--- NOTE | 2023-05-12 12:30 | MHC.CM.PN ---
PER EMR, PT CONFUSED, CM CALLED PTS FRIEND/HCP, AMMON JANETT [phone] HE REPORTS THE PT LIVES ALONE AND IS INDEPENDENT AT BASELINE HE SAYS THE PT DOES NOT HAVE A URANIUM PROCESSING SUPERVISOR INDICATED IN OTHER NOTES HE ALSO STATES THE PT DOES NOT USE DME HCP ON FILE PCP: BUCKY JAMES [facility] DELIVERED DCP TBD: [facility]IA PRIVATE TRANSPORT
[2023-05-12 15:01] VITALS: BP 143/69; PULSE 88; RESP 17; TEMP 36.8; O2SAT 94
[2023-05-12] MEDS: Thiamine HCL 500 MG in 0.9 % Sodium Chloride 100 ML 202.03 MG IV ×2 (15:35→21:18)
[2023-05-12] MEDS: 0.9 % Sodium Chloride Flush 3 ML SYRINGE IVFLUSH (15:40)
[2023-05-12 18:51] VITALS: BP 152/69; PULSE 94; RESP 18; TEMP 36.6; O2SAT 96
[2023-05-13] MEDS: vancomycin HCL 1,000 MG in 0.9 % Sodium Chloride 250 ML 270 MG IV ×3 (01:45→22:32)
[2023-05-13] MEDS: Dextrose 5 % and Lactated Ring 1,000 ML 80 ML IVCONT (01:48)
[2023-05-13 02:43] VITALS: BP 138/85; PULSE 92; RESP 18; TEMP 36.8; O2SAT 92
[2023-05-13 06:19] LABS: Hematocrit 30.7 % (42.0-52.0); Hemoglobin 10.4 g/dl (14.0-18.0); Mean Corpuscular HGB Conc 33.9 g/dl (31.0-36.0); Mean Corpuscular Hemoglobin 31.2 pg (27.0-33.0); Mean Corpuscular Volume 92.2 fL (80.0-98.0); Mean Platelet Volume 9.6 fL (9.4-12.4); Platelet Count 200 X10*3/uL (160-400); Red Blood Count 3.33 X10*6/uL (4.60-5.80); Red Cell Distribution Width 12.9 % (11.0-16.0); White Blood Count 6.1 X10*3/uL (4.8-10.8)
[2023-05-13 06:36] LABS: Anion Gap 9 (12-20); Blood Urea Nitrogen 9 mg/dL (9-16); Calcium 8.3 mg/dL (8.4-10.2); Carbon Dioxide 24 mmol/L (22-29); Chloride 105 mmol/L (96-108); Creatinine Clr Calc Pharmacy 116.6; Estimated Glomerular Filt Rate > 60; Glucose Random 112 mg/dL (60-115); Potassium 3.5 mmol/L (3.3-5.1); Sodium 134 mmol/L (135-145)
[2023-05-13 07:04] VITALS: BP 170/77; PULSE 86; RESP 18; TEMP 36.8; O2SAT 95
[2023-05-13] MEDS: Thiamine HCL 500 MG in 0.9 % Sodium Chloride 100 ML 202.03 MG IV (09:32)
[2023-05-13] MEDS: Folic Acid 1 MG in 0.9 % Sodium Chloride 50 ML 100.4 MG IV (10:43)
[2023-05-13] MEDS: Docusate Sodium 100 MG CAPSULE PO ×2 (10:44→21:05)
[2023-05-13] MEDS: Multivitamin TABLET 1 TAB PO (10:44)
[2023-05-13] MEDS: Ferrous Sulfate 324 MG TABLET.DR PO (10:44)
[2023-05-13] MEDS: PHENobarbitaL 30 MG TABLET 60 MG PO ×2 (10:45→21:04)
[2023-05-13] MEDS: polyethylene glycoL 3350 17 GM POWD.PACK PO (10:45)
--- NOTE | 2023-05-13 12:22 | HO.PM.IMPN ---
Subjective Subjective Date of Service: 05/13/23 Interval History: Seen and evaluated this morning more alert and interactive today ate 100% of last 3 meals still oozing from ear wound no other events reported Review of Systems Review of Systems: Yes all other systems are reviewed and are negative Physical Exam Vital Signs: Vital Signs: Last Vital Signs Temp 98.3 F 05/13/23 07:04 Pulse 86 05/13/23 07:04 Resp 18 05/13/23 07:04 BP 170/77 H 05/13/23 07:04 Pulse Ox 95 05/13/23 07:04 O2 Del Method Room Air 05/13/23 07:04 BMI result Body Mass Index 26.4 Const: Other: Constitutional : alert, does not open his eyes, not in distress Neck : Normal inspection, Supple Cardiovascular : RRR, no JVP, no lower extremity edema Respiratory : good bilateral air entry, no crackles, wheezes or rhonchi Gastrointestinal: soft, lax, Normal bowel sounds, Non tender Skin : Warm, Dry, left ear erythema and warmth going down, oozing from sutured area Neurological : alert, confused, No focal deficit Objective Data Active Medications Acetaminophen (Acetaminophen 325 Mg Tablet) 650 mg PO Q6H PRN PRN Reason: Pain, Mild (Pain Scale 1-3) Docusate Sodium (Docusate Sodium 100 Mg Capsule) 100 mg PO BID [facility] Last Admin: 05/13/23 10:44 Dose: 100 mg Documented By: LESIA Enoxaparin Sodium (Enoxaparin Sodium 40 Mg/0.4 Ml Syringe) 40 mg SUBCUT Q24H [facility] Last Admin: 05/12/23 11:48 Dose: Not Given Documented By: LESIA Non-Admin Reason: Patient Refused Ferrous Sulfate (Ferrous Sulfate 324 Mg Tablet.) 324 mg PO DAILY [facility] Last Admin: 05/13/23 10:44 Dose: 324 mg Documented By: LESIA Folic Acid 1 mg/ Sodium (Chloride) 50.2 mls @ 100.4 mls/hr IV DAILY [facility] Stop: 05/14/23 09:29 Last Infusion: 05/13/23 11:39 Dose: Infused Documented By: LESIA Dextrose/Lactated Ringer's (D5lr) 1,000 mls @ 80 mls/hr IVCONT .[id number] [facility] Last Admin: 05/13/23 01:48 Dose: 80 mls/hr Documented By: TON Vancomycin HCl 1,000 mg/ (Sodium Chloride) 270 mls @ 270 mls/hr IV Q12H [facility] Last Infusion: 05/13/23 02:45 Dose: Infused Documented By: TON Thiamine HCl 500 mg/ Sodium (Chloride) 105 mls @ 202.031 mls/hr IV TID [facility] Last Infusion: 05/13/23 11:03 Dose: Infused Documented By: LESIA Multivitamins/Vitamin C (Multivitamin Tablet) 1 tab PO DAILY [facility] Last Admin: 05/13/23 10:44 Dose: 1 tab Documented By: LESIA Ondansetron HCl (Ondansetron Hcl 4 Mg/2 Ml Vial) 4 mg IVPUSH Q8H PRN PRN Reason: Nausea and Vomiting Pharmacy Consult (Consult Rx Vancomycin Dosing) 1 each MISCELLANE DAILY PRN PRN Reason: Consult order Pharmacy Consult (Consult Rx Etoh Phenob Im/Po) 1 each MISCELLANE ONCE PRN; Protocol PRN Reason: Consult order Phenobarbital (Phenobarbital 30 Mg Tablet) 60 mg PO BID [facility] Stop: 05/13/23 21:01 Last Admin: 05/13/23 10:45 Dose: 60 mg Documented By: LESIA Phenobarbital (Phenobarbital 30 Mg Tablet) 30 mg PO BID [facility] Stop: 05/15/23 21:01 Phenobarbital (Phenobarbital 30 Mg Tablet) 30 mg PO DAILY [facility] Stop: 05/17/23 09:01 Polyethylene Glycol (Polyethylene Glycol 3350 17 Gm Powd.Pack) 17 gm PO DAILY [facility] Last Admin: 05/13/23 10:45 Dose: 17 gm Documented By: LESIA Senna (Sennosides 8.6 Mg Tablet) 17.2 mg PO BEDTIME PRN PRN Reason: Constipation Sodium Biphosphate/Sodium Phosphate (Sodium Phosphate,[place]-Dibasic 133 Ml Enema) 133 ml [place] ONCE PRN PRN Reason: Constipation Sodium Chloride (0.9 % Sodium Chloride Flush 3 Ml Syringe) 3 ml IVFLUSH QSHIFT [facility] Last Admin: 05/13/23 09:34 Dose: Not Given Documented By: LESIA Non-Admin Reason: IV Running Labs 05/13/23 05:28 05/13/23 05:28 Labs: Laboratory Results - last 24 hr 05/13/23 05:28 MCV 92.2 MCH 31.2 MCHC 33.9 RDW 12.9 Plt Count 200 MPV 9.6 Absolute Nucleated RBC 0.000 Nucleated RBC % (auto) 0.0 Anion Gap 9 L Estim Creat Clear Calc 116.6 Estimated GFR > 60 Random Glucose 112 Calcium 8.3 L Microbiology Microbiology Results: Microbiology 05/11/23 13:58 Blood Culture - Preliminary Blood - Venous No growth after 24 hours. 05/11/23 13:50 Blood Culture - Preliminary Blood - Venous No growth after 24 hours. Assessment and Plan (1) Cognitive impairment: Status: Acute (2) Delirium: Status: Acute (3) Cellulitis of left ear: Status: Acute Plan 77 year old male with history of alcohol use disorder, history of prostate cancer, history of colon cancer, htn, gerd, hld, unspecified cognitive impairment admitted for further management of cellulitis left ear with acute vs chronic metabolic encephalopathy. #Acute hematoma with cellulitis Left ear improving, still oozing Wound culture growing MSSA Pending final blood culture Continue IV vanco (initiated 05/10) cold packs remove sutures when oozing stops follow Vanco trough #Acute on chronic metabolic encephalopathy head ct negative for acute intracranial abnormalities, but shows chronic microvascular changes concern for wernicke's encephalopathy Continue Thiamine 250 tid psychiatry input appreciated recurrent reorientation Was able to participate with PT who recommended STR #Laceration pinna left ear 10 simple interrupted sutures remaining, placed 05/08. Consider removal once oozing stops #HTN controlled. not on antihypertensives dvt prophylaxis lovenox full code pt requires inpt stay overnight for management of cellulitis left ear on iv vanco and requires close monitoring of altered mentation due to encephalopathy, chronicity unclear, with concern for wernickes encephalopathy on iv thiamine and requiring expert consultation Quality Stroke Does the patient have a stroke diagnosis?: No VTE Prior VTE?: No VTE Risk Level:: Medical - moderate - high VTE Device Contraindication: Treatment Not Indicated VTE Drug Contraindication: N/A - Med Ordered
[2023-05-13 12:23] LABS: Vancomycin Random 9.9 mcg/mL (15-20)
--- NOTE | 2023-05-13 12:39 | HE.PHANOTE ---
RE: Vanco Trough on 05/12 = 9.9. Dose adjusted to 1000mg Q8H, predicted trough 14.6, predicted AUC 484. Next trough to be drawn on 05/13 @1200.
--- NOTE | 2023-05-13 12:53 | MHC.CM.PN ---
STR BEING RECOMMENDED [facility] [place] OFFERING A BED FOR TOMORROW
[2023-05-13] MEDS: Enoxaparin Sodium 40 MG/0.4 ML SYRINGE SUBCUT (13:05)
[2023-05-13 15:08] VITALS: BP 122/58; PULSE 85; RESP 18; TEMP 36.8; O2SAT 93
[2023-05-13 15:31] VITALS: O2SAT 95
[2023-05-13] MEDS: 0.9 % Sodium Chloride Flush 3 ML SYRINGE IVFLUSH ×2 (15:45→21:05)
[2023-05-13] MEDS: Thiamine HCL 250 MG in 0.9 % Sodium Chloride 100 ML 202.03 MG IV (15:45)
[2023-05-13 19:35] VITALS: BP 130/60; PULSE 72; RESP 18; TEMP 36.8; O2SAT 90
[2023-05-13] MEDS: Thiamine HCL 250 MG in 0.9 % Sodium Chloride 100 ML 202 MG IV (21:04)
[2023-05-13 21:16] VITALS: O2SAT 93
[2023-05-14 03:15] VITALS: BP 153/71; PULSE 73; RESP 19; TEMP 36.3; O2SAT 94
[2023-05-14 05:05] VITALS: O2SAT 93
[2023-05-14 05:51] LABS: Creatinine Clr Calc Pharmacy 109.2; Estimated Glomerular Filt Rate > 60
[2023-05-14] MEDS: vancomycin HCL 1,000 MG in 0.9 % Sodium Chloride 250 ML 270 MG IV (06:13)
[2023-05-14 07:23] VITALS: BP 159/69; PULSE 83; RESP 18; TEMP 36.6; O2SAT 92
[2023-05-14] MEDS: Multivitamin TABLET 1 TAB PO (08:20)
[2023-05-14] MEDS: Docusate Sodium 100 MG CAPSULE PO (08:20)
[2023-05-14] MEDS: Ferrous Sulfate 324 MG TABLET.DR PO (08:20)
[2023-05-14] MEDS: Folic Acid 1 MG in 0.9 % Sodium Chloride 50 ML 100.4 MG IV (08:20)
[2023-05-14] MEDS: PHENobarbitaL 30 MG TABLET PO (08:20)
[2023-05-14] MEDS: polyethylene glycoL 3350 17 GM POWD.PACK PO (08:21)
[2023-05-14] MEDS: 0.9 % Sodium Chloride Flush 3 ML SYRINGE IVFLUSH (08:21)
[2023-05-14] MEDS: levoFLOXacin 500 MG TABLET PO (08:35)
[2023-05-14] MEDS: Thiamine HCL 250 MG in 0.9 % Sodium Chloride 100 ML 202 MG IV (09:16)
[2023-05-14 09:59] VITALS: BP 159/69; PULSE 83; O2SAT 92
--- NOTE | 2023-05-14 10:16 | HO.PM.IMPN ---
Subjective Subjective Date of Service: 05/14/23 Interval History: Seen and evaluated this morning alert and interactive Having breakfast still oozing from ear wound no other events reported Review of Systems Review of Systems: Yes all other systems are reviewed and are negative Physical Exam Vital Signs: Vital Signs: Last Vital Signs Temp 97.8 F 05/14/23 07:23 Pulse 83 05/14/23 09:59 Resp 18 05/14/23 07:23 BP 159/69 H 05/14/23 09:59 Pulse Ox 92 05/14/23 09:59 O2 Del Method Room Air 05/14/23 07:23 O2 Flow Rate 2 05/14/23 03:15 BMI result Body Mass Index 26.4 Const: Other: Constitutional : alert, does not open his eyes, not in distress Neck : Normal inspection, Supple Cardiovascular : RRR, no JVP, no lower extremity edema Respiratory : good bilateral air entry, no crackles, wheezes or rhonchi Gastrointestinal: soft, lax, Normal bowel sounds, Non tender Skin : Warm, Dry, left ear erythema and warmth going down, oozing from sutured area Neurological : alert, confused, No focal deficit Objective Data Active Medications Acetaminophen (Acetaminophen 325 Mg Tablet) 650 mg PO Q6H PRN PRN Reason: Pain, Mild (Pain Scale 1-3) Docusate Sodium (Docusate Sodium 100 Mg Capsule) 100 mg PO BID [facility] Last Admin: 05/14/23 08:20 Dose: 100 mg Documented By: ROSSY Enoxaparin Sodium (Enoxaparin Sodium 40 Mg/0.4 Ml Syringe) 40 mg SUBCUT Q24H [facility] Last Admin: 05/13/23 13:05 Dose: 40 mg Documented By: LESIA Ferrous Sulfate (Ferrous Sulfate 324 Mg Tablet.) 324 mg PO DAILY [facility] Last Admin: 05/14/23 08:20 Dose: 324 mg Documented By: ROSSY Thiamine HCl 250 mg/ Sodium (Chloride) 102.5 mls @ 205 mls/hr IV TID [facility] Last Infusion: 05/14/23 09:53 Dose: Infused Documented By: ROSSY Levofloxacin (Levofloxacin 500 Mg Tablet) 500 mg PO Q24H [facility] Last Admin: 05/14/23 08:35 Dose: 500 mg Documented By: ROSSY Multivitamins/Vitamin C (Multivitamin Tablet) 1 tab PO DAILY [facility] Last Admin: 05/14/23 08:20 Dose: 1 tab Documented By: ROSSY Ondansetron HCl (Ondansetron Hcl 4 Mg/2 Ml Vial) 4 mg IVPUSH Q8H PRN PRN Reason: Nausea and Vomiting Pharmacy Consult (Consult Rx Vancomycin Dosing) 1 each MISCELLANE DAILY PRN PRN Reason: Consult order Pharmacy Consult (Consult Rx Etoh Phenob Im/Po) 1 each MISCELLANE ONCE PRN; Protocol PRN Reason: Consult order Phenobarbital (Phenobarbital 30 Mg Tablet) 30 mg PO BID [facility] Stop: 05/15/23 21:01 Last Admin: 05/14/23 08:20 Dose: 30 mg Documented By: ROSSY Phenobarbital (Phenobarbital 30 Mg Tablet) 30 mg PO DAILY [facility] Stop: 05/17/23 09:01 Polyethylene Glycol (Polyethylene Glycol 3350 17 Gm Powd.Pack) 17 gm PO DAILY [facility] Last Admin: 05/14/23 08:21 Dose: 17 gm Documented By: ROSSY Senna (Sennosides 8.6 Mg Tablet) 17.2 mg PO BEDTIME PRN PRN Reason: Constipation Sodium Biphosphate/Sodium Phosphate (Sodium Phosphate,[place]-Dibasic 133 Ml Enema) 133 ml [place] ONCE PRN PRN Reason: Constipation Sodium Chloride (0.9 % Sodium Chloride Flush 3 Ml Syringe) 3 ml IVFLUSH QSHIFT [facility] Last Admin: 05/14/23 08:21 Dose: 3 ml Documented By: ROSSY Labs 05/13/23 05:28 05/14/23 05:00 Labs: Laboratory Results - last 24 hr 05/13/23 05/14/23 12:06 05:00 Hold Purple Top SEE NOTE Estim Creat Clear Calc 109.2 Estimated GFR > 60 Random Vancomycin 9.9 L Microbiology Microbiology Results: Microbiology 05/11/23 13:58 Blood Culture - Preliminary Blood - Venous No growth after 48 hours. 05/11/23 13:50 Blood Culture - Preliminary Blood - Venous No growth after 48 hours. Assessment and Plan (1) Cognitive impairment: Status: Acute (2) Cellulitis of left ear: Status: Acute Plan 77 year old male with history of alcohol use disorder, history of prostate cancer, history of colon cancer, htn, gerd, hld, unspecified cognitive impairment admitted for further management of cellulitis left ear with acute vs chronic metabolic encephalopathy. #Acute hematoma with cellulitis Left ear improving, still oozing Wound culture growing MSSA Pending final blood culture DC IV vanco (initiated 05/10) start PO Levaquin cold packs remove sutures when oozing stops follow Vanco trough #Acute on chronic metabolic encephalopathy More alert and interactive head ct negative for acute intracranial abnormalities, but shows chronic microvascular changes Continue Thiamine 250 tid psychiatry input appreciated recurrent reorientation PT recommended STR #Laceration pinna left ear 10 simple interrupted sutures remaining, placed 05/08. Consider removal once oozing stops after 7-10 days #HTN controlled. not on antihypertensives dvt prophylaxis lovenox full code pt requires inpt stay overnight for management of cellulitis left ear requires close monitoring of altered mentation due to encephalopathy on iv thiamine pending safe discharge plan Quality Stroke Does the patient have a stroke diagnosis?: No VTE Prior VTE?: No VTE Risk Level:: Medical - moderate - high VTE Device Contraindication: Treatment Not Indicated VTE Drug Contraindication: N/A - Med Ordered
--- NOTE | 2023-05-14 11:04 | MHC.CM.PN ---
[facility] going [facility] pt contact notified pt leaving at 3
--- NOTE | 2023-05-14 11:05 | MHC.SL.SWA ---
Speech Pathologist Impression: Risk of Aspiration, Oralpharyngeal Dysphagia Risk of Aspiration Due to: Reduced Cognition Dysphasia Diet Status: No change Liquid Consistency and Strategies for Safe Swallow: Liquid Intake Recommendation: Thin Liquid Intake Strategies: Small Sips Solid Food Consistency: Dietary Recommendations: Grnd/Mech Altered (NDD2) Additional Modifications to Solid Foods: Patient appears to be on safest, least restrictive diet textures given his oral phase dysphagia and edentulous state. Further PAINTER SHIPYARD intervention no longer warranted at this level of care. Please re-refer with any changes or if PAINTER SHIPYARD can be of further assistance. Oral Medication Intake: Whole with Puree Please contact the pharmacy regarding appropriate crushable or liquid drug formulations that are available whenever modified delivery is recommended. Compensatory Strategies and Precautions to be Taken for Safe Swallow: Sitting Upright (90 deg) Small Bites and Sips Alternate Liquids/Solids Rate of Ingestion Change Oral Check Avoid Specific Foods Supervision While Eating and Drinking for Safe Swallow: Total Supervision (1:1) Foods to Avoid: Hard, dry, or sticky foods; mixed textures Swallowing Recommended Treatments: Compens. Strategy Educat. Recommendation for Speech: D/C Hose Seamer Clinican/Clinical Fellow: No Supervisory Statement: I have reviewed and agree with the student/clinical fellow's documentation: N/A Speech Language Pathologist: Mayelin Segura M.A., [facility]-PAINTER SHIPYARD
--- NOTE | 2023-05-14 11:08 | MHC.CM.PN ---
pt leaving [facility] to [facility] derrick lopez notified of dc [phone]
[2023-05-14] MEDS: Enoxaparin Sodium 40 MG/0.4 ML SYRINGE SUBCUT (11:28)
--- NOTE | 2023-05-14 14:07 | PM.DS ---
DS: Providers Provider Date of Service: 05/14/23 Date of admission: 05/11/23 11:44 Primary care physician: Jamar England MD Consults: 05/11/23 11:46 Consult to Psychiatry Routine Consulting Provider: Psych Covering Reason for consultation: ?mallika 05/11/23 15:24 Consult to Neurology Routine Consulting Provider: [facility] Reason for consultation: ? wernickes DS: Diagnosis Discharge Diagnosis (1) Cognitive impairment: Status: Acute (2) Cellulitis of left ear: Status: Acute (3) Delirium: Status: Acute (4) Hematoma of left auricular region: Status: Acute DS: Summary Hospital Course Hospital Course: Admission note 77 year old male with history of alcohol use disorder, history of prostate cancer, history of colon cancer, htn, gerd, hld, unspecified cognitive impairment. Pt initially presented to ED on 05/06 due to a fall and had sustained a laceration to the left ear. Sutures applied and patient was discharged home. The patient is an every day daily drinker and reports last drink was 2 days ago. Apparently the bar which he regularly frequents had not seen him in 3 days and called police for a wellness check. Apparently his nurse behavioral health care/CLEANER OPERATOR who is supposed to visit him daily had also not heard from him. on arrival, police found patient pacing back and forth in the same place, disheveled, and confused and called EMS. Per his friend/nurse behavioral health care patients mentation is baseline, but ems/police were not comfortable leaving him home so brought him in. The patient has no complaints but states he needs to have a bowel movement. Per his nurse behavioral health care, feels he has not moved his bowels in 7 days. He denies fevers, chills , pain in the ear. Patient is oriented to self and place, disoriented to time but overall appears confused and foggy. Upon return to the ED, left ear appeared swollen with hematoma. Several sutures were released with purulent/brown drainage and patient was started on started on po levaquin and placed on observation. He was evaluated by INTELLIGENT SYSTEMS ENGINEER due to oral dysphagia noted by staff who recommended NDD2 diet with thin liquids, pills crushed whole or in puree and recommended aspiration precautions and strategies to promote oral clearance. Pt continued to exhibit confusion. Ciwa score 5, not on phenobarb/benzos. Head CT repeated showing chronic microvascular changes but no acute intracranial abnormality. Concern for WE, started on IV thiamine. Wound culture ultimately grew staph aureus on preliminary culture with change in abx to doxy and recommended for admission. While in ED, pt was noted to be febrile to 100.5 last night, vitals otherwise stable. There has been no leukocytosis. Stable normocytic anemia with h/h 12.8/38.3%. Renal function baseline, lytes normal. VBG reasuring. Total bili 1.5, AST/ALT wnl. Ammonia 21. UA unmarkable. Utox negative. Ethyl etoh level undetectable. Negative for COVID 19.Pt will be admitted for further management of cellulitis of the left ear with acute vs chronic encephalopathy. Hospital course #Acute hematoma with cellulitis Left ear Improved significantly during hospital stay as he was treated with IV Vancomycin. Wound culture grew MSSA along with negative blood culture. Switched to Levaquin based on sensitivity. to finish total of 10 days of antibiotics. #Acute on chronic metabolic encephalopathy More alert and interactive at time of discharge as head ct negative for acute intracranial abnormalities, but shows chronic microvascular changes. He was evaluated by psychiatry given agitation. treated with Thiamin IV for risk of Wernicke disease. Was able to participate with PT who recommended STR. To continue Thiamine on discharge. #Laceration pinna left ear 10 simple interrupted sutures remaining, placed 05/08. Consider removal once oozing stops after 7-10 days (May 15) Discharge Plan Continue Levaquin for 6 more days To remove Sutures in 3-5 days Thiamine 100 mg daily Time Attestation Discharge Coordination Time (in mins): 38 Quality: Safe Use of Opioids Does Pt have an Active Cancer Diagnosis on the Problem List?: No Quality: Stroke Does the patient have a stroke diagnosis?: No Physical Exam Vital Signs: Vital Signs: Last Vital Signs Temp 97.8 F 05/14/23 07:23 Pulse 83 05/14/23 09:59 Resp 18 05/14/23 07:23 BP 159/69 H 05/14/23 09:59 Pulse Ox 92 05/14/23 09:59 O2 Del Method Room Air 05/14/23 07:23 O2 Flow Rate 2 05/14/23 03:15 BMI result Body Mass Index 26.4 Const: Other: Constitutional : alert, interactive, not in distress Neck : Normal inspection, Supple Cardiovascular : RRR, no JVP, no lower extremity edema Respiratory : good bilateral air entry, no crackles, wheezes or rhonchi Gastrointestinal: soft, lax, Normal bowel sounds, Non tender Skin : Warm, Dry, left ear erythema and warmth going down , oozing from sutured area Neurological : alert, confused, No focal deficit DS: Data Data Completed and Pending Labs on day of discharge: Laboratory Results - last 24 hr 05/14/23 05:00 Hold Purple Top SEE NOTE Creatinine 0.63 Estim Creat Clear Calc 109.2 Estimated GFR > 60 Preliminary micro results at discharge 05/11/23 13:58 Blood Culture - Preliminary Blood - Venous No growth after 48 hours. 05/11/23 13:50 Blood Culture - Preliminary Blood - Venous No growth after 48 hours. Imaging Chest x-ray: Radiologist's impression: ITS Impressions Head CT 05/11/23 09:34 IMPRESSION: 1. No acute intracranial pathology. 2. Chronic white matter small vessel ischemic changes. 3. Cerebral atrophy with commensurate ventricular changes. 4. Chronic lacunar infarct left basal ganglia. 5. Mucoperiosteal thickening of the bilateral maxillary, ethmoid, sphenoid, and frontal sinuses. Discharge Plan Discharge Anticipated Discharge Date/Time: 05/14/23 14:03 Patient Disposition: Xfer SNF Discharge Diagnosis: Left ear Cellulitis Cognitive impairment [facility]] - 1 Week Jamar England MD [Primary Care Provider] - 1 Week Discharge Medications: New levofloxacin 500 mg Tablet 500 mg PO Q24H Qty: 6 0RF thiamine HCl (vitamin B1) 100 mg tablet 100 mg PO DAILY Qty: 90 0RF Continued multivitamin Tablet 1 tab PO DAILY sennosides [senna] 8.6 mg Tablet 8.6 mg PO BID ferrous sulfate 325 mg (65 mg iron) Tablet 325 mg PO DAILY Discontinued cephalexin 500 mg capsule 500 mg PO TID Discharge Orders: Discharge Order (Routine); Ordered 05/14/23 Ordered By: Christine Mack Diet: Advance to usual diet Activity on Discharge: As tolerated Stand Alone Forms: Patient Portal Discharge page Print Language: Swazi Care Plan Goals: Read below Health Concerns: Read below Plan of Treatment: Read below Assessment: Continue Levaquin for 6 more days To remove Sutures in 3-5 days Thiamine 100 mg daily
== END 2023-05-14 15:24 | disposition skilled nursing facility (03) | DRG 862 ==
LOC: HO.ED 13:43 → HO.EDOVER 05-11 11:48 → HO.S3 05-12 09:55
PROVIDERS: Physician Assistant; Physician Assistant Medical; Admitting Provider Physician Assistant; Emergency Provider Student in an Organized Health Care Education/Training Program; PCP Internal Medicine; Visit Provider Student in an Organized Health Care Education/Training Program
DX: T81.41XA Infection following a procedure, superficial incisional surgical site, initial encounter (principal); G93.41 Metabolic encephalopathy; H95.5 Postprocedural hematoma and seroma of ear and mastoid process following a procedure; E51.2 Wernicke's encephalopathy; G31.84 Mild cognitive impairment of uncertain or unknown etiology; R41.0 Disorientation, unspecified; B95.61 Methicillin susceptible Staphylococcus aureus infection as the cause of diseases classified elsewhere; F10.10 Alcohol abuse, uncomplicated; Y84.8 Other medical procedures as the cause of abnormal reaction of the patient, or of later complication, without mention of misadventure at the time of the procedure; H60.12 Cellulitis of left external ear; Z20.822 Contact with and (suspected) exposure to COVID-19; Z79.899 Other long term (current) drug therapy
CPT/HCPCS: 36415; 70450; 80048; 80053; 80076; 80202; 80307; 81003; 82140; 82550; 82565; 82607; 82746; 82803; 83735; 85025; 85027; 87040; 87070; 87077; 87186; 87205; 87635; 92526; 97116; 97162; 99285; J1650; J2560; J3370; J3411

== ENCOUNTER → 2023-05-11 11:44 | Outpatient (BNV) | payer MEDICARE, SELFPAY | PROVIDERS: Admitting Provider Physician Assistant; Emergency Provider Student in an Organized Health Care Education/Training Program; PCP Internal Medicine; Visit Provider Physician Assistant | DX: R41.89 Other symptoms and signs involving cognitive functions and awareness (principal); H60.12 Cellulitis of left external ear; R41.0 Disorientation, unspecified; S00.432A Contusion of left ear, initial encounter | CPT/HCPCS: 99223; 99232; 99239 ==

== ENCOUNTER → 2023-05-11 11:44 | Outpatient (BNV) | payer MEDICARE, SELFPAY | PROVIDERS: Admitting Provider Physician Assistant; Emergency Provider Student in an Organized Health Care Education/Training Program; PCP Internal Medicine; Visit Provider Social Worker | DX: F10.90 Alcohol use, unspecified, uncomplicated (principal); R41.0 Disorientation, unspecified | CPT/HCPCS: 99232 ==

== ENCOUNTER 2023-06-24 22:18 | Emergency (ER) | payer MEDICARE, SELFPAY ==
--- NOTE | 2023-06-24 | ECG_ITS ---
Test Reason : FALL Blood Pressure : / mmHG Vent. Rate : 087 BPM Atrial Rate : 087 BPM P-R Int : 156 ms QRS Dur : 098 ms QT Int : 372 ms P-R-T Axes : 023 050 050 degrees QTc Int : 447 ms Normal sinus rhythm Septal infarct (cited on or before 08-FEB-2019) Abnormal ECG When compared with ECG of 07-MAY-2023 13:44, No significant change was found Referred By: Generic ED Physician Electronically Signed By:CHRISTOPHER PARHAM MD
--- NOTE | ~2023-06-24 | CT_ITS ---
EXAMINATION: CT HEAD WITHOUT CONTRAST CT CERVICAL SPINE WITHOUT CONTRAST CLINICAL INFORMATION: Fall. Pain. COMPARISON: None available. TECHNIQUE: Contiguous axial imaging was performed through the head and cervical spine without intravenous administration of contrast. Sagittal and coronal reformatted images also obtained. This CT examination was performed using dose optimization techniques as appropriate, variously including the following: *Automated exposure control *Adjustment of mA and/or kV according to patient size (this includes techniques or standardized protocols for targeted exams where dose is matched to indication/reason for exam; i.e. extremities or head) *Use of iterative reconstruction technique DLP: 1141 mGy-cm FINDINGS: There is cerebral volume loss with prominence of the lateral and third ventricles. The cortical sulci are widened appropriately. The fourth ventricle and basal cisterns are normally outlined. There is mild bilateral periventricular and central white matter diminished attenuation. There is no acute territorial defect, hemorrhage or midline shift. The extra-axial spaces are unremarkable. Calvarium: Intact. Maxillofacial sinuses and mastoids: There is mucosal thickening and opacities throughout the maxillofacial sinuses. Cervical spine: There is grade 1 anterolisthesis C7 over T1. The alignment is otherwise normal. There is diffuse moderate cervical disc degenerative change with loss of disc space, endplate change and posterior osteophytes associated with diffuse moderate facet osteoarthritic hypertrophic change with multilevel mild spinal canal and multilevel koea-us-zivtiezo neuroforaminal narrowing. No fracture is seen. The soft tissues are unremarkable. The visualized upper lung healy are clear. CT/CT cervical spine wo IV con IMPRESSION: 1. No acute intracranial process seen. 2. Grade 1 anterolisthesis C7 over T1. There are degenerative disc changes and facet joint arthropathy throughout cervical spine with multilevel mild spinal canal and pjlo-xx-qgjqdbuh neuroforaminal narrowing. 3. Maxillofacial opacities and mucosal thickening likely chronic.
--- NOTE | ~2023-06-24 | CT_ITS ---
EXAMINATION: CT HEAD WITHOUT CONTRAST CT CERVICAL SPINE WITHOUT CONTRAST CLINICAL INFORMATION: Fall. Pain. COMPARISON: None available. TECHNIQUE: Contiguous axial imaging was performed through the head and cervical spine without intravenous administration of contrast. Sagittal and coronal reformatted images also obtained. This CT examination was performed using dose optimization techniques as appropriate, variously including the following: *Automated exposure control *Adjustment of mA and/or kV according to patient size (this includes techniques or standardized protocols for targeted exams where dose is matched to indication/reason for exam; i.e. extremities or head) *Use of iterative reconstruction technique DLP: 1141 mGy-cm FINDINGS: There is cerebral volume loss with prominence of the lateral and third ventricles. The cortical sulci are widened appropriately. The fourth ventricle and basal cisterns are normally outlined. There is mild bilateral periventricular and central white matter diminished attenuation. There is no acute territorial defect, hemorrhage or midline shift. The extra-axial spaces are unremarkable. Calvarium: Intact. Maxillofacial sinuses and mastoids: There is mucosal thickening and opacities throughout the maxillofacial sinuses. Cervical spine: There is grade 1 anterolisthesis C7 over T1. The alignment is otherwise normal. There is diffuse moderate cervical disc degenerative change with loss of disc space, endplate change and posterior osteophytes associated with diffuse moderate facet osteoarthritic hypertrophic change with multilevel mild spinal canal and multilevel xlyz-pe-umullqgq neuroforaminal narrowing. No fracture is seen. The soft tissues are unremarkable. The visualized upper lung healy are clear. CT/CT head/brain wo IV con IMPRESSION: 1. No acute intracranial process seen. 2. Grade 1 anterolisthesis C7 over T1. There are degenerative disc changes and facet joint arthropathy throughout cervical spine with multilevel mild spinal canal and ytcs-bj-vmrxiqrh neuroforaminal narrowing. 3. Maxillofacial opacities and mucosal thickening likely chronic.
[2023-06-24 22:55] LABS: MANUAL DIFF FLAG NO
[2023-06-24 22:56] LABS: Basophils Percent Auto 0.5 % (0-2); Eosinophils Absolute Auto 0.2 X10*3/uL (0.0-0.4); Eosinophils Percent Auto 2.2 % (0-4); Hematocrit 30.8 % (42.0-52.0); Hemoglobin 10.8 g/dl (14.0-18.0); Imm Gran Abs Auto 0.01 X10*3/uL (0.00-0.03); Imm Gran Pct Auto 0.1 % (0.0-0.4); Lymphocytes Absolute Auto 1.7 X10*3/uL (1.2-4.9); Lymphocytes Percent Auto 19.3 % (20-40); Mean Corpuscular HGB Conc 35.1 g/dl (31.0-36.0); Mean Corpuscular Hemoglobin 31.2 pg (27.0-33.0); Monocytes Absolute Auto 0.7 X10*3/uL (0.1-1.2); Monocytes Percent Auto 8.4 % (2-11); Neutrophils Absolute Auto 5.9 x10*3/uL (2.0-8.3); Neutrophils Percent Auto 69.5 % (45-73); Platelet Count 226 X10*3/uL (160-400); Red Blood Count 3.46 X10*6/uL (4.60-5.80); White Blood Count 8.5 X10*3/uL (4.8-10.8)
[2023-06-24 23:09] LABS: Alanine Aminotransferase 8 U/L (0-40); Albumin Level 3.8 g/dL (3.5-5.0); Alkaline Phosphatase 88 U/L (39-117); Anion Gap 12 (12-20); Aspartate Amino Transferase 16 U/L (5-37); Bilirubin Total 0.8 mg/dL (0.0-1.0); Blood Urea Nitrogen 12 mg/dL (9-16); Calcium 8.7 mg/dL (8.4-10.2); Carbon Dioxide 22 mmol/L (22-29); Chloride 99 mmol/L (96-108); Estimated Glomerular Filt Rate > 60; Glucose Random 99 mg/dL (60-115); Potassium 3.6 mmol/L (3.3-5.1); Sodium 129 mmol/L (135-145); Total Protein 6.4 g/dL (6.5-8.0)
[2023-06-24 23:15] LABS: Troponin-I High Sensitivity 8.1 ng/L (<3.5-35.0)
[2023-06-24 23:29] VITALS: BP 160/79; PULSE 85; RESP 16; TEMP 36.8; O2SAT 93; BMI 25.8
--- NOTE | 2023-06-25 00:19 | ED_ITS ---
HPI - General Adult General Chief complaint: Fall Stated complaint: FALLING DAILY,FELL 2X TONIGHT Time Seen by Provider: 06/24/23 23:32 Source: patient, RN notes reviewed and old records reviewed Mode of arrival: EMS Limitations: no limitations History of Present Illness HPI narrative: 77-year-old male past medical history significant for alcohol use disorder, history of prostate cancer, colon cancer, hypertension, GERD, high, dementia presents for evaluation after fall. The patient lives in his home with an elderly friend who has been helping take care of him Per EMS report, the patient has been falling daily and had 2 falls today The patient denies any injuries or trauma He was last admitted to this facility on 05/11/2023 after a fall The patient apparently did not like this nephew was at so went back home with a friend to help take care of him He has no complaints or concerns at this time Related Data Home Medications ?Medication ?Instructions ?Recorded ?Confirmed ferrous sulfate 325 mg (65 mg 325 mg PO DAILY 05/11/23 05/11/23 iron) tablet multivitamin 1 tab PO DAILY 05/11/23 05/11/23 sennosides 8.6 mg tablet (senna) 8.6 mg PO BID 05/11/23 05/11/23 Previous Rx's ?Medication ?Instructions ?Recorded thiamine HCl (vitamin B1) 100 mg 100 mg PO DAILY #90 tabs 05/14/23 tablet Allergies Allergy/AdvReac Type Severity Reaction Status Date / Time No Known Allergies Allergy Verified 06/24/23 23:41 [No Known Allergies*] Review of Systems 2 Constitutional: Constitutional: Denies body ache(s), Denies chills, Denies fever(s), Reports frequent falls and Denies headache(s) Eyes: Eyes: Denies exophthalmos ENT: Denies headache(s) and Denies sore throat Cardiovascular: Cardiovascular: Denies chest pain and Denies dyspnea Respiratory: Respiratory: Denies cough and Denies dyspnea Gastrointestinal: Gastrointestinal: Denies abdominal pain, Denies nausea and Denies vomiting Musculoskeletal: Musculoskeletal: Denies back pain Integumentary/Breasts: Skin/Breast: Denies rash Neurologic: Reports frequent falls and Denies headache(s) Psychiatric: Psychiatric: Denies anxiety PMFSH Past Medical History Medical History Cognitive impairment COVID-19 virus infection Diverticular disease Colon cancer Overweight (BMI 25.0-29.9) Hypertension Knee osteoarthritis GERD (gastroesophageal reflux disease) Hypercholesterolemia Alcohol abuse Prostate cancer Arthritis of knee Surgical History History of surgery H/O umbilical hernia repair H/O right hemicolectomy History of total right hip arthroplasty History of total right knee replacement History of total left knee replacement Family History Family History Mother No problems noted. Father No problems noted. Social History Social History Household Members: Friend(s) Housing: House Do you presently have visiting nurse or other home services: No Unable to assess alcohol history related to: Unable to respond Alcohol intake: former Comment: 1:1 sitter Patient Tobacco Use Status: Tobacco use Unknown Smoked in Last 30 Days: No Use of substances other than those prescribed or required for medical reasons: No Advance Directives: Yes Advance Directives Date on File: 11/10/21 Do you have a plan to hurt others: No Plan service: No Current occupational status: retired Current occupation: Right Handed Physical Exam ED Vital Signs: Vital Signs - 24 hr 06/24/23 23:29 06/25/23 03:40 06/25/23 08:00 Temperature 98.3 F 97.6 F Pulse Rate 85 94 81 Respiratory Rate 16 16 12 Blood Pressure 160/79 H 143/71 H 134/70 Pulse Oximetry 93 86 L 95 Oxygen Delivery Method Room Air Room Air Room Air 06/25/23 09:35 06/25/23 16:12 Temperature 97.6 F Pulse Rate 81 80 Respiratory Rate 16 Blood Pressure 134/70 134/60 Pulse Oximetry 95 95 Oxygen Delivery Method Room Air BMI result Body Mass Index 25.8 Const General: healthy appearing, comfortable, no acute distress, alert and awake Nutritional Appearance: well nourished Orientation/consciousness: patient oriented x3 HENMT Head: Yes normocephalic and Yes atraumatic Eyes Eyelids: Yes eyelids normal Conjunctivae: conjunctivae normal Sclerae: sclerae normal Corneas: corneas normal Pupils: Equal, round and reactive pupils present EOM: EOMs intact bilaterally Neck Neck: Yes full ROM Resp Effort & Inspection: normal respiratory effort, able to speak in complete sentences and not labored Cardio Rate: regular rate Rhythm: regular rhythm GI Inspection: No distended Palpation (GI): Soft to palpation, not firm, nontender, no guarding and not rigid Skin General skin exam: elasticity normal Neuro General: patient oriented x3 Cranial nerves: Yes CN's II-XII intact bilaterally, Yes Equal, round and reactive pupils present and Yes Bilaterally intact EOM present Cognition (Neuro): normal cognition Extrem Other: Moving all extremities well without any obvious deformities Course Reevaluation(s) Reevaluation #1: Patient evaluated by physical therapy and case management. Plan of care for patient to be transferred to [facility] today at 16:00 - physician observation continues. Time: 12:32 Reevaluation #2: Patient going to [facility]. He was just discharged. Patient has significant like the stairs expect to be less than 30 days. And physician observation at this time Time: 16:17 Medical Decision Making Medical Decision Making MDM Narrative: 77-year-old male past medical history as documented above presents for evaluation after multiple falls. Plan for CT scan of brain and cervical spine. Plan for medical workup, basic labs including alcohol level and UA. If medically cleared, the patient will likely require physical therapy and case management evaluation due to frequent falls. He has no complaints or concerns at this time Differential Diagnosis Differential Diagnoses: The differential diagnosis associated with the presentation includes Failure to thrive Frequent falls Intracranial hemorrhage Cervical fracture UTI Lab Data 06/24/23 22:50 06/24/23 22:50 Labs: Lab Results 06/24/23 06/25/23 06/25/23 Range/Units 22:50 00:39 09:47 WBC 8.5 (4.8-10.8) X10*3/uL RBC 3.46 L (4.60-5.80) X10*6/uL Hgb 10.8 L (14.0-18.0) g/dl Hct 30.8 L (42.0-52.0) % MCV 89.0 (80.0-98.0) fL MCH 31.2 (27.0-33.0) pg MCHC 35.1 (31.0-36.0) g/dl RDW 13.0 (11.0-16.0) % Plt Count 226 (160-400) X10*3/uL MPV 9.0 L (9.4-12.4) fL Immature Gran % (Auto) 0.1 (0.0-0.4) % Neut % (Auto) 69.5 (45-73) % Lymph % (Auto) 19.3 L (20-40) % [place] % (Auto) 8.4 (2-11) % Eos % (Auto) 2.2 (0-4) % Baso % (Auto) 0.5 (0-2) % Lymph # (Auto) 1.7 (1.2-4.9) X10*3/uL [place] # (Auto) 0.7 (0.1-1.2) X10*3/uL Eos # (Auto) 0.2 (0.0-0.4) X10*3/uL Baso # (Auto) 0.0 (0.0-0.2) X10*3/uL Abs Immat Gran (auto) 0.01 (0.00-0.03) X10*3/uL Absolute Neuts (auto) 5.9 (2.0-8.3) x10*3/uL Absolute Nucleated RBC 0.000 (0.0-0.012) X10*3/uL Nucleated RBC % (auto) 0.0 (0.0-0.2) /100WBC Sodium 129 L (135-145) mmol/L Potassium 3.6 (3.3-5.1) mmol/L Chloride 99 (96-108) mmol/L Carbon Dioxide 22 (22-29) mmol/L Anion Gap 12 (12-20) BUN 12 (9-16) mg/dL Creatinine 0.66 (0.5-1.4) mg/dL Estim Creat Clear Calc TNP Estimated GFR > 60 Random Glucose 99 (60-115) mg/dL Calcium 8.7 (8.4-10.2) mg/dL Total Bilirubin 0.8 (0.0-1.0) mg/dL AST 16 (5-37) U/L ALT 8 (0-40) U/L Alkaline Phosphatase 88 (39-117) U/L Troponin I High Sens 8.1 (<3.5-35.0) ng/L Total Protein 6.4 L (6.5-8.0) g/dL Albumin 3.8 (3.5-5.0) g/dL Urine Color Yellow Urine Appearance Clear Urine pH 5.5 (5.0-9.0) Ur Specific [place] 1.010 (1.005-1.025) Urine Protein Negative (Neg-Trace) mg/dL Urine Glucose (UA) Negative (Negative) mg/dL Urine Ketones Negative (Negative) mg/dL Urine Blood Moderate (2+) H (Negative) Urine Nitrite Negative (Negative) Ur Leukocyte Esterase Negative (Negative) Urine RBC 11-20 H (0-2) /HPF Urine WBC 0-5 (0-5) /HPF Ur Squamous Epith Cells 0-2 (0-2) /HPF Urine Bacteria None Seen (None Seen) Hyaline Casts 0-2 (0-2) /LPF Ethyl Alcohol < 10 mg/dL COVID-19 (HERNANDEZ) Negative (Negative) COVID-19 Clin Com See Note Discharge Plan Discharge Clinical Impression: Adult failure to thrive, Falls frequently Patient Disposition: Xfer SNF Transfer Details: [facility] Prescriptions: No Action multivitamin Tablet 1 tab PO DAILY sennosides [senna] 8.6 mg Tablet 8.6 mg PO BID ferrous sulfate 325 mg (65 mg iron) Tablet 325 mg PO DAILY thiamine HCl (vitamin B1) 100 mg tablet 100 mg PO DAILY Qty: 90 0RF Referrals: [facility] [Outside] Interventions: ED Discharge Assessment Last Done: 06/25/23 16:12 Discharge Date/Time: 06/25/23 16:14 Print Language: Serbian
[2023-06-25 00:45] LABS: Appearance Urine Clear; Color Urine Yellow; Glucose Urine UA Negative (Negative); Leukocyte Esterase Urine Negative (Negative); Nitrite Urine Negative (Negative); PH 5.5 (5.0-9.0); UMIC TRIGGER UACC YES; Urine Blood Moderate (2+) (Negative); Urine Ketones Negative (Negative); Urine Protein Negative (Neg-Trace)
[2023-06-25 00:50] LABS: Bacteria Urine None Seen (None Seen); Hyaline Casts Urine 0-2 /LPF (0-2); Squamous Epithelial Cell Urine 0-2 /HPF (0-2); WBC Urine 0-5 /HPF (0-5)
[2023-06-25 01:07] LABS: Ethanol < 10 mg/dL
--- NOTE | 2023-06-25 02:56 | PC.NURSE ---
pt confused incontinent of urine, climbing OOB, bed alarm and camera for safety. Pt cleaned up and repositioned for comfort
[2023-06-25 03:40] VITALS: BP 143/71; PULSE 94; RESP 16; O2SAT 86
--- NOTE | 2023-06-25 04:26 | PC.NURSE ---
pt arrived via Main ED to overflow unit
[2023-06-25 08:00] VITALS: BP 134/70; PULSE 81; RESP 12; TEMP 36.4; O2SAT 95
[2023-06-25 09:35] VITALS: BP 134/70; PULSE 81; O2SAT 95
--- NOTE | 2023-06-25 10:17 | PC.NURSE ---
Patient has constant urinary urgency. Bladder scanned for 124cc of urine post void.
[2023-06-25 10:39] LABS: COVID-19 Test Negative (Negative); IDNOW Serial# 08D9AD1C
--- NOTE | 2023-06-25 12:36 | MHC.CM.ED ---
Received case management consult overnight. Patient came to the ER due to a fall. Work up essentially negative. Physical therapy eval completed. Short term rehab is recommended. Patient is well known to due to frequent ER visits. Patient was d/c'd from [facility] on 05/13 to [facility]. Patient was d/c'd from [facility] on 06/01. Patient's friend, Jamie, has been staying with patient. Patient has been falling. Referral made to [facility]. [facility] is able to offer a bed. Met with patient. Patient agreeable to STR at [facility]. Rachid ORTEGA booked for 4pm. [facility] with chart. Patient, Aleisha DAVILA and Nohemy BAIN aware. Patient's friend/HCP, Raul made aware via telephone at [phone]. Continue to monitor for d/c needs.
--- NOTE | 2023-06-25 12:58 | PC.NURSE ---
patient incontinent of urine, cleaned and repositioned for comfort. patient tearful and afraid of going to rehab
[2023-06-25 16:12] VITALS: BP 134/60; PULSE 80; RESP 16; TEMP 36.4; O2SAT 95
== END 2023-06-25 16:14 | disposition skilled nursing facility (03) ==
PROVIDERS: Nurse Practitioner Family; Physician Assistant; Emergency Provider Emergency Medicine; PCP Internal Medicine
DX: R62.7 Adult failure to thrive (principal); Z68.25 Body mass index [BMI] 25.0-25.9, adult; Z91.81 History of falling; M54.2 Cervicalgia; I10 Essential (primary) hypertension; K21.9 Gastro-esophageal reflux disease without esophagitis; Z11.52 Encounter for screening for COVID-19
CPT/HCPCS: 36415; 70450; 72125; 80053; 80307; 81001; 84484; 85025; 87635; 93005; 97162; 99284; 99285

== ENCOUNTER → 2023-06-24 22:32 | Outpatient (BNV) | payer MEDICARE, SELFPAY | PROVIDERS: Emergency Provider Emergency Medicine; Visit Provider Internal Medicine Cardiovascular Disease | DX: R94.31 Abnormal electrocardiogram [ECG] [EKG] (principal) | CPT/HCPCS: 93010 ==

== ENCOUNTER 2023-06-30 01:08 | Emergency (ER) | payer MEDICARE, SELFPAY ==
--- NOTE | ~2023-06-30 | CT_ITS ---
EXAMINATION: CT HEAD WITHOUT CONTRAST CT CERVICAL SPINE WITHOUT CONTRAST CLINICAL INFORMATION: Fall. Head strike. COMPARISON: 06/24/2023. TECHNIQUE: Contiguous axial imaging was performed through the head and cervical spine without intravenous administration of contrast. Sagittal and coronal reformatted images also obtained. This CT examination was performed using dose optimization techniques as appropriate, variously including the following: *Automated exposure control *Adjustment of mA and/or kV according to patient size (this includes techniques or standardized protocols for targeted exams where dose is matched to indication/reason for exam; i.e. extremities or head) *Use of iterative reconstruction technique DLP: 1037 mGy-cm FINDINGS: There is cerebral volume loss with prominence of the lateral and the third ventricles. The cortical sulci are widened appropriately. The fourth ventricle and basal cisterns are also normally outlined. There is mild bilateral periventricular and central white matter diminished attenuation. There is no acute territorial defect, hemorrhage or midline shift. Calvarium/scalp: Calvarium is intact. There is right frontotemporal scalp soft tissue swelling. Maxillofacial sinuses and mastoids: Opacities/mucosal thickening throughout the visualized maxillofacial sinuses. The mastoids are clear. Cervical spine: There is grade 1 anterolisthesis C7 over T1. There is diffuse moderate cervical disc degenerative change with loss of disc space, endplate change and posterior osteophytes associated with diffuse moderate facet osteoarthritic hypertrophic change with multilevel [id number] spinal canal and neuroforaminal narrowing. No fracture is seen. The soft tissues are unremarkable. The visualized upper lung healy are clear. CT/CT head/brain wo IV con IMPRESSION: 1. No acute intracranial process seen. Age-related cerebral volume loss with chronic small vessel ischemic changes. 2. There is right frontotemporal scalp soft tissue swelling but no calvarial fracture. 3. There is no acute cervical spine fracture or traumatic subluxation seen. There is grade 1 anterolisthesis C7 over T1. There are degenerative disc changes and facet joint arthropathy throughout cervical spine.
--- NOTE | ~2023-06-30 | CT_ITS ---
EXAMINATION: CT HEAD WITHOUT CONTRAST CT CERVICAL SPINE WITHOUT CONTRAST CLINICAL INFORMATION: Fall. Head strike. COMPARISON: 06/24/2023. TECHNIQUE: Contiguous axial imaging was performed through the head and cervical spine without intravenous administration of contrast. Sagittal and coronal reformatted images also obtained. This CT examination was performed using dose optimization techniques as appropriate, variously including the following: *Automated exposure control *Adjustment of mA and/or kV according to patient size (this includes techniques or standardized protocols for targeted exams where dose is matched to indication/reason for exam; i.e. extremities or head) *Use of iterative reconstruction technique DLP: 1037 mGy-cm FINDINGS: There is cerebral volume loss with prominence of the lateral and the third ventricles. The cortical sulci are widened appropriately. The fourth ventricle and basal cisterns are also normally outlined. There is mild bilateral periventricular and central white matter diminished attenuation. There is no acute territorial defect, hemorrhage or midline shift. Calvarium/scalp: Calvarium is intact. There is right frontotemporal scalp soft tissue swelling. Maxillofacial sinuses and mastoids: Opacities/mucosal thickening throughout the visualized maxillofacial sinuses. The mastoids are clear. Cervical spine: There is grade 1 anterolisthesis C7 over T1. There is diffuse moderate cervical disc degenerative change with loss of disc space, endplate change and posterior osteophytes associated with diffuse moderate facet osteoarthritic hypertrophic change with multilevel [id number] spinal canal and neuroforaminal narrowing. No fracture is seen. The soft tissues are unremarkable. The visualized upper lung healy are clear. CT/CT cervical spine wo IV con IMPRESSION: 1. No acute intracranial process seen. Age-related cerebral volume loss with chronic small vessel ischemic changes. 2. There is right frontotemporal scalp soft tissue swelling but no calvarial fracture. 3. There is no acute cervical spine fracture or traumatic subluxation seen. There is grade 1 anterolisthesis C7 over T1. There are degenerative disc changes and facet joint arthropathy throughout cervical spine.
[2023-06-30 01:13] VITALS: BP 146/84; PULSE 87; O2SAT 97
[2023-06-30 01:18] VITALS: BP 141/66; PULSE 78; RESP 17; TEMP 36.7; O2SAT 94
[2023-06-30 01:25] VITALS: BP 141/66; PULSE 79; RESP 18; O2SAT 96; BMI 24.4
--- NOTE | 2023-06-30 01:26 | ED.FALL ---
HPI - Fall General Chief Complaint: Head Injury Stated Complaint: fall Time Seen by Provider: 06/30/23 01:23 Source: patient and EMS Mode of arrival: EMS Limitations: other (Chronic Cognitive impairment) History of Present Illness ED Provider: Dr. Katya Decker HPI Narrative: Patient comes to the emergency room complaining of a fall. Patient lives in assisted living. Patient had an unwitnessed fall. Patient has an ecchymosis to the scalp/forehead on the right, no lacerations, no active bleeding. Patient is poor historian but states that he feels well and has no pain. Patient is not on blood thinners. EMS reports that the staff at the nursing facility find the patient to be at baseline. Related Data Home Medications ?Medication ?Instructions ?Recorded ?Confirmed ferrous sulfate 325 mg (65 mg 325 mg PO DAILY 05/11/23 05/11/23 iron) tablet multivitamin 1 tab PO DAILY 05/11/23 05/11/23 sennosides 8.6 mg tablet (senna) 8.6 mg PO BID 05/11/23 05/11/23 Previous Rx's ?Medication ?Instructions ?Recorded thiamine HCl (vitamin B1) 100 mg 100 mg PO DAILY #90 tabs 05/14/23 tablet Allergies Allergy/AdvReac Type Severity Reaction Status Date / Time No Known Allergies Allergy Verified 06/30/23 01:31 [No Known Allergies*] Review of Systems Review of Systems: Yes Other [facility] Past Medical History Medical History Cognitive impairment COVID-19 virus infection Diverticular disease Colon cancer Overweight (BMI 25.0-29.9) Hypertension Knee osteoarthritis GERD (gastroesophageal reflux disease) Hypercholesterolemia Alcohol abuse Prostate cancer Arthritis of knee Surgical History History of surgery H/O umbilical hernia repair H/O right hemicolectomy History of total right hip arthroplasty History of total right knee replacement History of total left knee replacement Family History Family History Mother No problems noted. Father No problems noted. Social History Social History Household Members: Friend(s) Housing: House Do you presently have visiting nurse or other home services: No Unable to assess alcohol history related to: Unable to respond Alcohol intake: former Comment: 1:1 sitter Patient Tobacco Use Status: Tobacco use Unknown Advance Directives Date on File: 11/10/21 Do you have a plan to hurt others: No Plan service: No Current occupational status: retired Current occupation: Right Handed Physical Exam Vital Signs: Vital Signs: Last Vital Signs Temp 98.1 F 06/30/23 01:18 Pulse 79 06/30/23 01:25 Resp 18 06/30/23 01:25 BP 141/66 H 06/30/23 01:25 Pulse Ox 96 06/30/23 01:25 O2 Del Method Room Air 06/30/23 01:25 BMI result Body Mass Index 24.4 Const: Other: Appearance: Alert. Oriented X3. No acute distress. Eyes: Pupils equal, round and reactive to light. ENT: Pharynx normal. Neck: Normal inspection. Neck supple. No lymph nodes noted. No crepitus CVS: Normal heart rate and rhythm. Pulses normal. Normal S1 and S2 Respiratory: No respiratory distress. Breath sounds normal. No Wheezing. No rales Abdomen: Soft and nontender. No rigidity. No distention. Skin: Skin warm and dry. Ecchymosis to the right side of the forehead, no lacerations, no active bleeding Extremities: No lower extremity edema. No Lacerations. No Rash Neuro: Oriented X 3. No motor deficit. No sensory deficit. Moving all extremities. No slurred speech. CN 2 through 12 grossly intact Psych: calm, cooperative, normal affect Course Course Course Narrative: -patient states that he feels well -patient's vitals are stable -head CT and cervical spine CT pending. -sign-out given to my colleague Dr. Natarajan Medical Decision Making Differential Diagnosis Differential Diagnoses: The differential diagnosis associated with the presentation includes (Contusion, concussion, brain bleed, cervical spine injury) Admission/Observation Consideration of admission/observation: Escalation of care including admission/observation considered (Can patient's mechanism of injury, age, observation was considered) Discharge Plan Discharge Clinical Impression: Closed head injury Patient Disposition: Home, Self-Care Instructions: Head Injury (ED) Additional Instructions: Please follow-up with your primary care physician tomorrow. If you have any worsening or new symptoms, please return to the emergency room or call 911 Prescriptions: No Action multivitamin Tablet 1 tab PO DAILY sennosides [senna] 8.6 mg Tablet 8.6 mg PO BID ferrous sulfate 325 mg (65 mg iron) Tablet 325 mg PO DAILY thiamine HCl (vitamin B1) 100 mg tablet 100 mg PO DAILY Qty: 90 0RF Print Language: Welsh
[2023-06-30 05:13] VITALS: BP 141/62; PULSE 80; RESP 14; TEMP 36.6; O2SAT 96
[2023-06-30 07:35] VITALS: BP 141/62; PULSE 80; RESP 14; TEMP 36.6; O2SAT 96
== END 2023-06-30 07:35 | disposition skilled nursing facility (03) ==
PROVIDERS: Emergency Provider Internal Medicine
DX: S00.03XA Contusion of scalp, initial encounter (principal); S09.90XA Unspecified injury of head, initial encounter; X58.XXXA Exposure to other specified factors, initial encounter; Y93.9 Activity, unspecified; Y92.9 Unspecified place or not applicable; Y99.9 Unspecified external cause status
CPT/HCPCS: 70450; 72125; 99284